=== PATIENT | female | born 1935 | race Caucasian/White ===

== ENCOUNTER → 2016-09-19 | Outpatient (CLI) | payer MEDICARE ==
[~2016-09-19] MED LIST: ALBU17IN2; ALBU17IN2 INH; ALLE180T33 PO; ASPI1TAB PO; ATOR1TAB19 PO; ATOR1TAB21 PO; BYST10TA2 PO; CARD120T4 PO; CLOTR1CR TOP; COLA100C PO; DILT60TA PO; FLEC50TA PO; FLON0.054; FURO40TA2 PO; LEVO500T32 PO; LEVO50TA5 PO; LIPI10TA PO; LISI10TA4 PO; METO25TAB PO; MICR8CAP PO; MUCI600T34 PO; MULTCAP PO; OCEA0.654; PROTPAK PO; RANE1000 PO; RANI15TA PO; TAMBOCOR PO; TESS100C PO; TYLE325T5 PO; TYLE650T25 PO; VITA100037 PO; ZANT1TAB PO; ZAROXOLYN PO; ZEST1TAB7 PO; ZOLO50TA PO; ZYLO300T4 PO
== END ==
LOC: M CARPUL 12:46
PROVIDERS: ATTEND Nurse Practitioner Family
DX: R06.09 Other forms of dyspnea (principal); R06.02 Shortness of breath

== ENCOUNTER 2016-10-20 11:45 | Inpatient (IN) | payer MEDICARE ==
[2016-10-20] VITALS (27 sets, daily range): BP systolic 53–189; BP diastolic 27–100; O2SAT 94–100
[~2016-10-20] VITALS: Ht 160 cm; Wt 121.0 kg
[2016-10-20] MEDS ORDERED: ACETAMINOPHEN TAB 650MG DOSE (2X325MG) PO PRN (12:00)
[2016-10-20] MEDS ORDERED: BISACODYL 10 MG SUPP PR PRN (12:00)
[2016-10-20] MEDS ORDERED: GLUCAGON FOR INJ 1 MG VIAL (J1610) SC PRN (12:30)
[2016-10-20] MEDS ORDERED: GLUCOSE 4 GM CHEW TABLET PO PRN (12:30)
[2016-10-20] MEDS ORDERED: DEXTROSE 50% 50 ML SYRINGE IV PRN (12:30)
[2016-10-20 13:49] LABS: MAGNESIUM LEVEL 2.3 MG/DL (1.8-2.4)
[2016-10-20] MEDS ORDERED: IPRATROPIUM 0.5MG/ALBUTEROL 2.5MG INH SOL UD 3ML (DUONEB)(J7620) NEB SCH (14:00)
--- NOTE | 2016-10-20 14:31 | REP ---
AP LATERAL SEATED CHEST: 10/20/2016 CLINICAL HISTORY: Hypoxia. COMPARISON: 08/19/2016, 01/28/2015. Technologist notes patient unable to follow commands at this time. Lordotic projection limits evaluation as does low level of inflation. This crowds markings in the bases. It exaggerates heart size and venous hypertension is suspected. No gross effusion on the lateral view. No dense consolidation. Bones with degenerative change. IMPRESSION: 1. Hypoinflated chest with bibasilar atelectatic changes and crowded markings. Heart size exaggerated by low level of inflation. There is venous hypertension which also may be exaggerated. No gross effusion. Limited exam. Signed by Evangelista Manuel MD 10/20/2016 04:25 P
[2016-10-20 14:38] LABS: ALBUMIN 2.6 GM/DL (3.2-5.2); ALBUMIN/GLOBULIN RATIO 0.65 (1.00-1.93); ALKALINE PHOSPHATASE 80 U/L (45-117); ALT/SGPT 22 U/L (12-78); ANION GAP 8 MEQ/L (8-16); AST/SGOT 27 U/L (15-37); BILIRUBIN,TOTAL 0.3 MG/DL (0.2-1.0); BLOOD UREA NITROGEN 45 MG/DL (7-18); CALCIUM LEVEL 8.7 MG/DL (8.8-10.2); CARBON DIOXIDE LEVEL 25 MEQ/L (21-32); CHLORIDE LEVEL 106 MEQ/L (98-107); CREATININE FOR GFR 2.04 MG/DL (0.55-1.02); GLOMERULAR FILTRATION RATE 24.8 (>32); GLUCOSE, FASTING 114 MG/DL (83-110); SODIUM LEVEL 139 MEQ/L (136-145); TOTAL PROTEIN 6.6 GM/DL (6.4-8.2)
[2016-10-20 14:40] LABS: MEAN CORPUSCULAR HEMOGLOBIN 32.7 pg (27.0-33.0); MEAN CORPUSCULAR HGB CONC 31.2 g/dl (32.0-36.5); MEAN CORPUSCULAR VOLUME 105.1 fl (80.0-96.0); POTASSIUM SERUM 5.7 MEQ/L (3.5-5.1); RED CELL DISTRIBUTION WIDTH 15.5 % (11.5-14.5); WHITE BLOOD COUNT 14.7 K/mm3 (4.0-10.0)
[2016-10-20] MEDS ORDERED: ISOS60TA2 PO (14:54)
[2016-10-20] MEDS ORDERED: DULO1CAP2 PO (14:54)
[2016-10-20] MEDS ORDERED: KLOR1CAP2 PO (14:54)
[2016-10-20] MEDS ORDERED: ALLE60TA69 PO (14:54)
[2016-10-20] MEDS ORDERED: ALBU17IN INH (14:55)
[2016-10-20] MEDS ORDERED: METO25TAB PO (14:56)
[2016-10-20] MEDS ORDERED: OPTI0.5D5 OU (14:57)
[2016-10-20] MEDS ORDERED: DILT120C PO (15:21)
[2016-10-20] MEDS ORDERED: FUROSEMIDE 40 MG/4 ML VIAL (J1940) IV ONE (15:30)
[2016-10-20] MEDS: HumaLOG INSULIN (NovoLOG) PER UNIT SC SCH ×2 (17:30→21:00)
[2016-10-20] MEDS ORDERED: HALOPERIDOL 5 MG/ML VIAL (J1630) As Ordered ONE (17:48)
[2016-10-20] MEDS ORDERED: NITROGLYCERIN 2% OINT 1 GM *U/D* PKT As Ordered ONE (17:55)
[2016-10-20] MEDS: FUROSEMIDE 40 MG/4 ML VIAL (J1940) IV SCH (18:00)
[2016-10-20] MEDS ORDERED: FUROSEMIDE 40 MG/4 ML VIAL (J1940) IV SCH (18:00)
[2016-10-20] MEDS ORDERED: MEROPENEM INJ 1 GM in D5W MINI-BAG PLUS 100 ML IV SCH (18:00)
[2016-10-20 18:03] LABS: ABG HCO3 23.9 MEQ/L (22.0-26.0); ABG PARTIAL PRESSURE CO2 86.6 mmHg (35.0-45.0); ABG PARTIAL PRESSURE O2 109.8 mmHg (75.0-100.0); ABG TOTAL CO2 26.6 MEQ/L (23.0-31.0); ABG pH (ARTERIAL) 7.059 UNITS (7.350-7.450)
[2016-10-20] MEDS ORDERED: ETOMIDATE INJ 20MG/10ML VIAL As Ordered ONE ×2 (18:07→18:27)
[2016-10-20] MEDS ORDERED: MIDAZOLAM INJ 5 MG/ML VIAL (J2250) As Ordered ONE ×2 (18:23→18:42)
[2016-10-20] MEDS ORDERED: ROCURONIUM BROMIDE 50 MG/5 ML VIAL As Ordered ONE (18:26)
[2016-10-20] MEDS ORDERED: PROPOFOL 1,000 MG/100 ML VIAL As Ordered ONE (18:31)
--- NOTE | 2016-10-20 18:55 | REP ---
PORTABLE CHEST X-RAY: REASON FOR EXAMINATION: Dyspnea. COMPARISON: 10/20/2006, obtained at 2 p.m. AP and lateral views. The technique utilized in obtaining the radiograph has magnified the cardiac silhouette and accentuated the interstitial markings. The lung arias and cardiomediastinal silhouette are stable. No acute patchy parenchymal opacities or pleural effusions have developed. The lung arias are again seen to be hypo-expanded with basilar subsegmental atelectatic change. There is no change in the osseous structure. IMPRESSION: Stable chest as described above. Signed by Jermaine Qiu DO 10/20/2016 07:09 P
[2016-10-20] MEDS ORDERED: VANCOMYCIN HCL 1,000 MG, VIAL MATE ADAPTER 1 EACH in D5W 250 ML IV ONE (19:00)
[2016-10-20] MEDS ORDERED: PROPOFOL 1,000 MG in APPROPRIATE DILUENT 1 EA IV SCH (19:08)
[2016-10-20] MEDS ORDERED: ETOMIDATE INJ 20MG/10ML VIAL IV STA ×2 (19:10)
[2016-10-20] MEDS ORDERED: VERAPAMIL HCL 5 MG/2 ML VIAL IV STA (19:10)
[2016-10-20] MEDS: MIDAZOLAM INJ 2 MG/2 ML VIAL (J2250) IV PRN ×4 (19:15→20:00)
[2016-10-20] MEDS ORDERED: MORPHINE 2 MG/ML 1ML SYRINGE IV PRN (19:15)
[2016-10-20] MEDS ORDERED: ROCURONIUM BROMIDE 50 MG/5 ML VIAL IV ONE (19:15)
[2016-10-20] MEDS ORDERED: MIDAZOLAM INJ 5 MG/ML VIAL (J2250) IM ONE (19:30)
--- NOTE | 2016-10-20 19:37 | IPN ---
DATE: 10/20/2016 Ashley cherise was called. She had change in mental status and had become hypoxic as she was unwilling to keep her oxygen on in her confusion while the [facility] team was managing the patient's care, I called the patient's daughter by phone. Apparently the patient has a do not resusitate order from another hospital. During my initial discussions with the daughter she indicated that she will be willing to have the patient have bi-level positive airway pressure (BiPAP), would be unwilling to have the patient intubated but would want the patient to have cardiopulmonary resuscitation. She was indicating that she would be coming into town this evening. She lives about an hour and 45 minutes away, would start the drive and we would be able to reach her by phone whenever. When the patient's gas came back apparently the patient's daughter was contacted by the remaining [facility] team which included Dr. Levine at that point and consultation with the daughter elected to intubate the patient. Please refer to other providers for description of the patient's care. MABEL
--- NOTE | 2016-10-20 19:37 | REP ---
CHEST, ONE VIEW: REASON FOR EXAM: Status-post right internal jugular central venous catheter placement and endotracheal tube placement. COMPARISON: Today at 6:11 p.m. Since the last examination the right sided internal jugular central venous catheter has been placed, the tip of which is in the superior vena cava. An endotracheal tube is also now present, the tip of which is in satisfactory position at the level of the aortic knob. The lung arias are unchanged. No acute patchy parenchymal opacities or pleural effusions have developed. The cardiomediastinal silhouette is stable. The heart is not grossly enlarged. There is no change in the osseous structures. IMPRESSION: No acute disease. Endotracheal tube and central venous catheter as described above. Signed by Jermaine Qiu DO 10/20/2016 07:49 P
[2016-10-20] MEDS ORDERED: REFRIGERATOR IV KEYS XX PRN (19:45)
[2016-10-20 19:58] LABS: EOS # 0.3 K/mm3 (0.0-0.50); EOS % 2.3 % (0.0-3.0); LARGE UNSTAINED CELL # 0.2 K/mm3 (0.0-0.4); LARGE UNSTAINED CELL % 1.1 % (0.0-4.0); LYMPH # 0.8 K/mm3 (1.5-4.5); LYMPH % 5.4 % (24.0-44.0); MEAN CORPUSCULAR HEMOGLOBIN 33.1 pg (27.0-33.0); MEAN CORPUSCULAR HGB CONC 31.3 g/dl (32.0-36.5); MEAN CORPUSCULAR VOLUME 105.8 fl (80.0-96.0); MONO # 0.6 K/mm3 (0.0-0.8); MONO % 3.9 % (0.0-5.0); NEUTROPHILS # 12.6 K/mm3 (1.8-7.7); NEUTROPHILS % 87.3 % (36.0-66.0); PLATELET COUNT, AUTOMATED 202 k/mm3 (150-450); RED CELL DISTRIBUTION WIDTH 15.4 % (11.5-14.5); WHITE BLOOD COUNT 14.4 K/mm3 (4.0-10.0)
[2016-10-20] MEDS ORDERED: MIDAZOLAM HCL 100 MG in D5W 80 ML IV SCH (20:30)
[2016-10-20] MEDS ORDERED: MIDAZOLAM INJ 5 MG/ML VIAL (J2250) IV ONE ×2 (20:30)
[2016-10-20] MEDS: IPRATROPIUM 0.5MG/ALBUTEROL 2.5MG INH SOL UD 3ML (DUONEB)(J7620) NEB SCH (20:42)
[2016-10-20 20:44] LABS: ALBUMIN 2.3 GM/DL (3.2-5.2); ALBUMIN/GLOBULIN RATIO 0.55 (1.00-1.93); CALCIUM LEVEL 8.3 MG/DL (8.8-10.2); CREATININE FOR GFR 1.99 MG/DL (0.55-1.02); GLOMERULAR FILTRATION RATE 25.5 (>32); TOTAL PROTEIN 6.5 GM/DL (6.4-8.2)
[2016-10-20 20:52] LABS: BILIRUBIN,TOTAL 0.4 MG/DL (0.2-1.0)
[2016-10-20] MEDS ORDERED: METOPROLOL TART 25 MG TABLET PO SCH (21:00)
[2016-10-20] MEDS: SENOKOT S TAB PO SCH (21:00)
[2016-10-20] MEDS ORDERED: CHLORHEXIDINE GLUCONATE 0.12 % 15ML UDC (PERIDEX ORAL RINSE) MT SCH (21:00)
[2016-10-20] MEDS ORDERED: DULoxetine 30 MG CAP (CYMBALTA) PO SCH (21:00)
[2016-10-20] MEDS: FLECAINIDE 50MG TABLET PO SCH (21:00)
--- NOTE | 2016-10-20 21:02 | CCN ---
DATE: 10/20/2016 CRITICAL CARE TIME: 1 hour. This excludes all procedures. I was called urgently to the bedside of a patient who had a rapid assessment called. She was having altered mental status, hypoxia and tachypnea. She was brought to the ICU, was obtunded apparently multiple attempts were made to intubate without success until right before I arrived at the room. The thied an successful intubation had just finished. I confirmed placement with auscultation as the tube was secured and placed the patient on mechanical ventilation. Her story begins with a history of 3 to 4 weeks of progressive dyspnea and increased lower extremity edema bilaterally with a history of hypertensive heart disease and diastolic dysfunction. She was therefore admitted for acute decompensation of heart failure. While on the floor it was noted that she was refusing medications, became combative, had a change in mental status and was unable to keep her oxygen on. She then had cyanosis and hypoxia documented to 60%. Rapid assessment was called and patient transferred to the ICU. On mechanical ventilation, she moves her arms appropriately and respond she responds to stimuli. She has a heart rate of approximately 78 with a sinus arrhythmia, wide QRS complex suggesting an incomplete left bundle branch block. There is no ST-T segment abnormalities. After intubation, she was sedated with propofol. She did have some hypotension and therefore her antihypertensives were stopped. She was on Prinivil, although she had evidence of renal failure on her admission labs. She had hyperkalemia, lactic acidosis on her initial blood work. This was thought to be secondary to the work of breathing. Blood cultures were obtained during the rapid assessment for meeting sepsis criteria. On my arrival because of her hypotension, I did place a central line and she had very poor IV access. PHYSICAL EXAMINATION: Temperature is 96.2, pulse is 76, respiratory rate is 20, blood pressure is 89/56 with an oxygen saturation of 96% on 0.50 FIO2. She is on volume control. Tidal volume 400, respiratory rate of 20, PEEP of 10 and an FIO2 of 0.60. General: The patient is sedated on mechanical ventilation. Moves extremities appropriately. Pupils are approximately 5 mm and reactive to light. Mucous membranes are moist without lesion. Tongue is midline. Mallampati 4. Neck is supple. No tracheal deviation or mass. Large circumference. No thyromegaly. Cardiac: Distant S1-S2 without audible murmur, rub or gallop. 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 Central venous pressure (CVP) is measured at 8. Pulmonary: Breath sounds are clear bilaterally. No rhonchi or wheeze. No dullness to percussion. Abdomen is soft, with hypoactive bowel sounds. No discernible hepatosplenomegaly. There is a subcostal scar that is well-healed. Extremities: There is significant edema and erythema. Apparently this is chronically how her legs look, however, there is an open wound on her toe. Musculoskeletal: Appears appropriate for stated age. No evidence of joint effusion. Neurologic: Moving extremities appropriately. No evidence of seizure activity. Laboratory evaluation shows a white blood cell count of 14.7, hemoglobin of 7.8. Platelet count of 236, sodium is 139, potassium 5.7, chloride 106, bicarb is 25, BUN of 45, creatinine of 2.04, fasting glucose of 114. Lactic acid of 3.7, calcium 8.7, troponin less than 0.02, albumin of 2.6, TSH of 2.8. Blood cultures are pending. Chest x-ray shows hypoventilation, some air in the stomach and endotracheal tube is slightly deep approximately 1 cm above the jesus. Right IJ has the tip of the catheter in the SVC. There is no significant parenchymal lung disease. Arterial blood gas prior to intubation shows a pH of 7.06, pCO2 of 86 and pAO2 of 110. IMPRESSION: 1. Acute hypercarbic hypoxic respiratory failure. According to history, the patient came in with decompensated heart failure. Will continue to monitor for other signs, symptoms of alternative diagnoses. There is no evidence of pneumonia currently. 2. Acute renal failure. Will continue to monitor urine output. Currently the patient has large amounts of clear very light yellow urine after Lasix administration was given prior to the respiratory distress. 3. Lactic acidosis, likely secondary to the patient's work of breathing. However, will recheck within 6 hours to ensure no evidence of persistent lactic acidemia. 4. Hyperkalemia, likely from acute renal failure. Will also recheck potassium on labs. Likely also secondary to acute metabolic acidosis. 5. Leukocytosis. Blood cultures are pending. The patient received vancomycin, meropenem. I suppose this was written due to the possibility of cellulitis. We will continue antibiotics due to the leukocytosis, lactic acidosis until blood cultures return. 6. Anemia. No indication for transfusion at this point in time. 7. Diabetes. Will check fingersticks blood glucose every 6 hours. 8. Hypothyroidism. Will continue levothyroxine and TSH is 2.8 on admission. 9. History of cardiac disease. Currently the patient has hypotension, likely from sedation. Will continue to monitor for need for reintroduction of antiarrhythmics and antihypertensives. Prinivil should be on hold now due to her acute renal failure and hyperkalemia. 10. Hypoalbuminemia, likely from volume overload and protein deficiency Prognosis remains guarded. Critical care required due to the severity of her respiratory failure. Will continue mechanical ventilation with daily sedation and assess for readiness for extubation. Critical care time was mentioned above. This excludes all procedures. MTDD
[2016-10-20] MEDS ORDERED: VANCOMYCIN HCL 1,250 MG in D5W 250 ML IV ONE (21:15)
--- NOTE | 2016-10-20 21:16 | RO ---
DATE OF PROCEDURE: 10/20/2016 PREPROCEDURE DIAGNOSIS: Hypotension. POSTPROCEDURE DIAGNOSIS: Hypotension. PROCEDURE: Right internal jugular venous catheter, triple lumen catheter. SURGEON: Micah Parker DO PHARMACY SERVICE ASSOCIATE: None. ANESTHESIA: The patient was sedated on mechanical ventilation with propofol. DESCRIPTION OF PROCEDURE: The patient was prepped and draped in a sterile manner with four full barrier precautions and chlorhexidine. The right IJ was then identified under ultrasound and the Mayi syringe was passed into the right IJ in the first pass with return of venous blood flow. The wire was fed through the needle and needle was removed. A aubree in the skin was made and the triple-lumen catheter was fed over the wire via modified Seldinger technique. The wire was removed and all three ports returned venous blood flow. All three ports flushed easily. The line was sutured in at 15 cm at the right IJ. There were no observed complications. A sterile impregnated dressing was then placed over the site. There were no observed complications.
--- NOTE | 2016-10-20 21:18 | PHACANCOPD ---
PHARMACY VANCOMYCIN DOSING Pt Demographics Demographics Patient Age:81 , Weight:126.360 , Gender: female Adjusted Body Weight Date: 10/20/16, Adjusted Body Weight: [82] Kg Events Past 24 Hours Events Past 24 Hours: NO: Change in CrCl, Dialysis, Diuretic Therapy, Elevation in WBC, Fever, Other, Pending Diagnostics, Pending Procedures Vancomycin Vancomycin Target Ranges: 10-20 mcg/ml Vancomycin Load Y/N: Yes Load Dose Date Time Vancomycin Load Dose: 1250MG Date: 10-20 Time: 2100 Vancomycin Dose Date: 10/20/16. Current Vancomycin Dose: Intermittent Dosing?: No Labs Labs Item Value Date Time White Blood Count 14.4 K/mm3 H 10/20/16 1940 Creatinine 1.99 MG/DL H 10/20/16 1940 Vital Signs Label Value Date Time Patient Temperature 96.2 degrees F 10/20/16 1600 Temperature Source Tympanic 10/20/16 1600 Micro Microbiology 10/20/16 Blood Culture, Received Pending 10/20/16 Blood Culture, Received Pending Creatinine Clearance Date:10/20/16. Creatinine Clearance: [18]. Pending Labs TROUGH 10-22 Assessment and Plan Maintaining Current Dose?: Yes Reason for dose change: No Dose Change Pharmacist Note Pharmacist Note Date: 10/20/16. Pharmacist note:Dosed at 1000mg q24h with a trough ordered for . Will continue to monitor and make adjustments as needed. ALEJANDRO REHMAN PHARMACY Oct 20, 2016 21:18
[2016-10-20] MEDS: FLUTICASONE PROP 0.05% NASAL SPRAY 16 GM (FLONASE) SCH (21:28)
[2016-10-20] MEDS: NYSTATIN 100,000 UNITS/GM TOPICAL PWD 15 GM TOP SCH (21:29)
[2016-10-20 22:48] LABS: ABG HCO3 21.9 MEQ/L (22.0-26.0); ABG PARTIAL PRESSURE CO2 36.1 mmHg (35.0-45.0); ABG PARTIAL PRESSURE O2 159.6 mmHg (75.0-100.0)
[2016-10-20 22:49] LABS: ABG BASE EXCESS -2.5 (-2.0-2.0); ABG STANDARD HCO3 22.4 MEQ/L (22.0-26.0)
[2016-10-21] VITALS (15 sets, daily range): BP systolic 89–148; BP diastolic 39–65; O2SAT 100
[2016-10-21] MEDS: FUROSEMIDE 40 MG/4 ML VIAL (J1940) IV SCH ×3 (00:12→20:45)
[2016-10-21] MEDS ORDERED: HALOPERIDOL 5 MG/ML VIAL (J1630) IV ONE (02:15)
[2016-10-21] MEDS ORDERED: NITROGLYCERIN 2% OINT 1 GM *U/D* PKT TOP ONE (02:15)
[2016-10-21 05:53] LABS: ABG HCO3 24.7 MEQ/L (22.0-26.0); ABG PARTIAL PRESSURE CO2 28.5 mmHg (35.0-45.0); ABG PARTIAL PRESSURE O2 106.7 mmHg (75.0-100.0); ABG STANDARD HCO3 27.2 MEQ/L (22.0-26.0); ABG TOTAL CO2 25.6 MEQ/L (23.0-31.0); ABG pH (ARTERIAL) 7.556 UNITS (7.350-7.450)
[2016-10-21] MEDS: LEVOTHYROXINE 0.05 MG TAB (50 MCG) PO SCH (06:07)
[2016-10-21] MEDS: MEROPENEM INJ 1 GM in D5W MINI-BAG PLUS 100 ML IV SCH ×2 (06:08→19:05)
[2016-10-21 06:34] LABS: ALBUMIN 2.2 GM/DL (3.2-5.2); ALBUMIN/GLOBULIN RATIO 0.55 (1.00-1.93); BILIRUBIN,TOTAL 0.5 MG/DL (0.2-1.0); CALCIUM LEVEL 8.2 MG/DL (8.8-10.2); CREATININE FOR GFR 1.89 MG/DL (0.55-1.02); POTASSIUM SERUM 4.3 MEQ/L (3.5-5.1); TOTAL PROTEIN 6.2 GM/DL (6.4-8.2)
[2016-10-21 06:38] LABS: BASO % 0.2 % (0.0-1.0); EOS # 0.3 K/mm3 (0.0-0.50); EOS % 2.5 % (0.0-3.0); LARGE UNSTAINED CELL # 0.2 K/mm3 (0.0-0.4); LARGE UNSTAINED CELL % 1.5 % (0.0-4.0); LYMPH # 1.8 K/mm3 (1.5-4.5); LYMPH % 12.7 % (24.0-44.0); MEAN CORPUSCULAR HEMOGLOBIN 33.3 pg (27.0-33.0); MEAN CORPUSCULAR HGB CONC 32.7 g/dl (32.0-36.5); MEAN CORPUSCULAR VOLUME 101.8 fl (80.0-96.0); MONO % 8.2 % (0.0-5.0); NEUTROPHILS # 9.2 K/mm3 (1.8-7.7); NEUTROPHILS % 74.9 % (36.0-66.0); PLATELET COUNT, AUTOMATED 216 k/mm3 (150-450); RED CELL DISTRIBUTION WIDTH 15.8 % (11.5-14.5); WHITE BLOOD COUNT 12.2 K/mm3 (4.0-10.0)
--- NOTE | 2016-10-21 06:53 | IPN ---
DATE: 10/20/2016 RAPID RESPONSE NOTE Rapid response called at 5:40 p.m. and ended at 6:40 p.m. Rapid response called for tachypneic and altered mental status. The patient was combative. The patient was as per nursing staff admitted today for congestive heart failure (CHF) exacerbation with underlying history of obstructive sleep apnea, hypertension, coronary artery disease, and not on oxygen at home as per nursing staff. At baseline, alert and oriented times three. She came in with acute on chronic renal failure with hyperkalemia and leukocytosis. Rapid response code purple was called because patient was combative, removing oxygen devices on her and was tachypneic into the 30s. Previous vitals before rapid response - patient's temperature 96.2, heart rate 76, respirations 24, blood pressure 189/76, and pulse oximetry 96% on 2 liters nasal cannula. During the process, pulse oximetry was taken and the patient's saturation was down to the 70s and 60s. Subsequently, the patient was placed on non-rebreather. In the process, the patient's color also turned dusky and was bagged and then placed on non-rebreather with improvement of mental status and subsequently a repeat blood pressure was taken. Finger stick 140, repeat blood pressure 180/100, with pulse 104. ABG was obtained. The patient was auscultated bilateral lung sounds are crackly and wheezy. The patient was not following commands, agitated, waving her arms, removing devices. Haldol 2 mg IV once was given. The patient was placed on monitor with improvement in oxygen saturation up to a 100. Nitropaste was also placed on the patient's chest and the patient was subsequently moved to the intensive care unit (ICU). In the ICU, the patient's blood gas returned with an ABG of 7.059, pCO2 of 86.6 and pO2 of 109.8 on 100% nonrebreather. The patient's primary doctor, Dr. Levine has been present and called the patient's daughter and informed her of her current condition. Unable to verify patient's code status. Subsequently, decision was made for the patient to be intubated. Pulmonary critical care attending, Dr. Parker, was alerted. In between, the patient was given 40 mg of IV Lasix twice. Buck catheter with good urine output, Buck catheter was placed. Subsequently, the patient was intubated. Please refer to intubation note for further information. After intubation, the patient was placed on ventilators. During the process, labs and blood cultures were ordered. Meropenem and one dose of vancomycin was also ordered. Medications for intubation including etomidate 20 mg IV twice, Versed 5 mg IV once, as well as rocuronium 20 mg IV once. X-ray was ordered to verify tube placement. The patient had bilateral breath sounds with positive CO2 monitor color change and satting 100% with blood pressure of 190/90. Subsequently, the patient was handed off to Dr. Levine and Dr. Parker for further intensive care monitoring and care. Propofol drip was started for sedation. Possible etiology for patient's condition includes encephalopathy secondary to underlying infection versus hypoxia and hypoxic possibly secondary to acute CHF exacerbation versus underlying infection versus pulmonary embolism (PE). Antibiotics have been ordered. Lab tests were sent. X-ray was ordered as well. The patient currently has stable vital signs, 100% oxygen saturations. Further care as per primary team. ADDENDUM: Critical time exclusive of procedure 40 minutes.
[2016-10-21 07:19] LABS: ABG BASE EXCESS 5.4 (-2.0-2.0); ABG HCO3 29.1 MEQ/L (22.0-26.0); ABG PARTIAL PRESSURE CO2 39.1 mmHg (35.0-45.0); ABG PARTIAL PRESSURE O2 118.5 mmHg (75.0-100.0); ABG STANDARD HCO3 29.4 MEQ/L (22.0-26.0); ABG TOTAL CO2 30.3 MEQ/L (23.0-31.0)
[2016-10-21] MEDS: HumaLOG INSULIN (NovoLOG) PER UNIT SC SCH ×4 (07:30→20:06)
[2016-10-21] MEDS: IPRATROPIUM 0.5MG/ALBUTEROL 2.5MG INH SOL UD 3ML (DUONEB)(J7620) NEB SCH ×4 (07:57→20:50)
[2016-10-21] MEDS: FLECAINIDE 50MG TABLET PO SCH ×2 (09:00→20:33)
[2016-10-21] MEDS ORDERED: ATORVASTATIN 10 MG TAB PO SCH (09:00)
[2016-10-21] MEDS ORDERED: ENOXAPARIN 40 MG/0.4 ML SYRINGE (J1650) SC SCH (09:00)
[2016-10-21] MEDS ORDERED: LISINOPRIL 20 MG TAB PO SCH (09:00)
[2016-10-21] MEDS ORDERED: ALLOPURINOL 300 MG TAB PO SCH (09:00)
[2016-10-21] MEDS: ASPIRIN 81 MG ENTERIC TAB PO SCH (09:00)
[2016-10-21] MEDS: SENOKOT S TAB PO SCH ×2 (09:00→20:33)
--- NOTE | 2016-10-21 09:54 | CCN ---
DATE: 10/21/2016 Critical care time was 1 hour at the patient's bedside. I have placed her on a spontaneous breathing trial. She did have agitation, occasional rapid shallow breathing. The healthcare proxy was at the bedside, Jahaira. She states she spoke with her sister Beata who is also listed as a healthcare proxy and stated they both agree that their stepmother would not want life support. Her was listed as the first healthcare proxy, but they state he is incapacitated and unable to make decisions, they state he was just hospitalized last week. They feel that they are accurately reflecting the patient's wishes that have been expressed in the past. We therefore extubated the patient this morning, placed her on oxygen and will continue to treat without providing CPR or aggressive measures. It is in agreement the patient would not tolerate CPAP or BiPAP and would not want this therapy. Critical care time was required at the bedside during extubation. PHYSICAL EXAMINATION: Temperature is 98.1, pulse is 101, respiratory rate is 16, blood pressure is 111/52, oxygen saturation is 98% on 48% FiO2. GENERAL: Awake, moving all extremities, able to lift her body off the bed. Occasionally opens eyes but has no meaningful communication. HEENT: Pupils are approximately 5-6 mm and reactive to light. Mucous membranes are moist without lesions. Tongue is midline. NECK: Supple, large in circumference without discernible elevated JVP. Thyroid is without enlargement or nodularity. LYMPHATICS: No cervical, supraclavicular, or axillary adenopathy. CARDIAC: Distant S1, S2, without audible murmur, rub or gallop. PMI is difficult to palpate due to body habitus. PULMONARY: Slight expiratory wheeze. No rhonchi or rales. No dullness to percussion. ABDOMEN: Obese, soft, nontender, nondistended. No hepatosplenomegaly. No masses or hernia. There is a well-healed subcostal scar from prior cholecystectomy. EXTREMITIES: There is significant erythema and now pustule formation on the right leg with green pus. There is significant lower extremity edema. MUSCULOSKELETAL: Moving arms and legs appropriately. NEUROLOGIC: No evidence of tremor, seizure activity. No evidence of unilateral weakness. Not yet communicating effectively however, the patient was recently on Versed. LABORATORY EVALUATION: Shows a sodium 142, potassium 4.3, chloride 105, bicarbonate of 28, BUN of 44, creatinine 1.89, glucose of 111. Lactic acid is down to 1.0, calcium 8.2, AST of 29, ALT of 23, troponin of 0.04 and albumin of 2.2, white blood cell count is down to 12.2, hemoglobin is down to 9.8 from 10, hematocrit of 30, platelet count of 216. Arterial blood gas shows hyperventilation with a pH of 7.49, pCO2 of 39, PaO2 of 118. Chest x-ray shows hypoventilation without any significant infiltrate or mass. Endotracheal tube and central line are in place. IMPRESSION: 1. Respiratory failure, trial of extubation. I am concerned due to her hypoventilation that she may fail. The patient's family have discussed this and her healthcare proxies have stated that she would not want any further aggressive measures that if she were to decline they would not want reintubation or cardiopulmonary resuscitation. I will therefore order a DO NOT RESUSCITATE. They did state if she does not do well that they would convert her to comfort measures and let her pass naturally. 2. Congestive heart failure. Will continue on Lasix. 3. Tachycardia. Will reintroduce flecainide as this was held last night. 4. Renal failure. Creatinine has decreased. Will continue to monitor urine output. 5. Hyperkalemia. Also potassium decreased to 4.3. No need for intervention at this point in time. 6. Leukocytosis, improved. On antibiotics for possible cellulitis. Awaiting blood culture return. 7. Anemia. No indication for transfusion at this point in time. 8. Neurologic. Has agitation which is likely secondary to age, hospitalization and ICU delirium. Will monitor for neurologic recovery. 9. Diabetes. Will place back on before food coverage when the patient is able to tolerate a diet. 10. Hypothyroidism. Levothyroxine is continued. 11. Lactic acidosis, resolved. Critical care time as mentioned above. This excludes all procedures.
--- NOTE | 2016-10-21 10:24 | IPNPDOC ---
Subjective Date Seen The patient was seen on 10/21/16. Subjective Chief Complaint/HPI The patient is a 81-year-old female admitted with a reason for visit of Congestive Heart Failure. Events since last encounter Extubated this am - maintaining her sats on 28% O2 She is still drowsy - Acts a little agitated at times Constitutional: Denies: Chills, Fever Pulmonary: Denies: Cough Cardiovascular: Denies: Chest Pain Gastrointestinal: Denies: Abdominal Pain, Nausea, Vomiting Objective Physical Examination General Exam: Positive: Other (Grrogy, looks a little agitated/uncomfortable at times - janine are in mits to prevent her from pulling off her oxygen mask) Chest Exam: Positive: Diminished Heart Exam: Positive: Rate Normal, Negative: Murmurs Abdomen Exam: Positive: BS Hypoactive, Soft, Negative: Tenderness Extremity Exam: Positive: Edema (1+ edema) Skin Exam: Positive: Other skin issue (BL LE with raised erythematous area on both shins with scabbed areas and a pulstule on right andrade) Assessment /Plan Problems (1) Cellulitis Status: Acute Problem Text: BL LE cellulitis superimposed on chronic venous stasis dermatitis. Has a pustule on her right andrade B/C pending (2) Acute diastolic (congestive) heart failure Status: Acute Response to Treatment: Improving Problem Text: Resp status and fluid status improved with IV Lasix. Renal function slightly improved at well. I will cut back IV Lasix slightly to 40 mg IV q 12 hours. Continue oxygen KATHLEEN on hold due to hypotension and ARF (3) Community acquired bacterial pneumonia Status: Acute Problem Text: IV Zosyn and Vanco ordered WBC down BC pending (4) Paroxysmal atrial fibrillation Status: Acute Problem Text: rate running around 100 Verapamil given Iv x 1 yesterday, but BP dropped so will hold off this for now (5) MARIVEL (obstructive sleep apnea) Status: Chronic Response to Treatment: Stable Problem Text: untreated MARIVEL - will not tolerate CPAP (6) Diabetes Status: Chronic Response to Treatment: Stable Problem Text: Continue SSI (7) HTN (hypertension) Status: Chronic Problem Text: BP meds on hold due to low BP Plan/VTE VTE Prophylaxis Ordered?: Yes (Lovenox) Plan/Urinary Catheter Reason for insertion/continuin: Critical Pt monitoring VS, I&O, 24H, Fishbone Vital Signs/I&O Vital Signs Date Time Temp Pulse Resp B/P Pulse Ox O2 Delivery O2 Flow Rate FiO2 10/21/16 07:55 101 16 98 40 10/21/16 06:07 111/52 Ventilator 10/21/16 04:07 98.1 10/20/16 16:00 2.0 I&O- Last 24 Hours up to 6 AM 10/21/16 05:59 Intake Total 370 ml Output Total 1775 ml Balance -1405 ml Laboratory Data 24H LABS Laboratory Tests 2 10/20/16 13:06: Blood Urea Nitrogen 45H, Creatinine 2.04H, Sodium Level 139, Potassium Level 5.7H, Chloride Level 106, Carbon Dioxide Level 25, Calcium Level 8.7L, Aspartate Amino Transf (AST/SGOT) 27, Alanine Aminotransferase (ALT/SGPT) 22, Total Creatine Kinase 189, Alkaline Phosphatase 80, Total Bilirubin 0.3, Total Protein 6.6, Albumin 2.6L, Albumin/Globulin Ratio 0.65L, Anion Gap 8, Creatine Kinase MB 3.7H, Creatine Kinase MB Relative Index 1.95, Glomerular Filtration Rate 24.8L, Magnesium Level 2.3, Thyroid Stimulating Hormone (TSH) 2.880, Troponin I < 0.02 10/20/16 17:55: Arterial Blood pH 7.059*L, Arterial Blood Partial Pressure CO2 86.6*H, Arterial Blood Partial Pressure O2 109.8H, Arterial Blood Total CO2 26.6, Arterial Blood HCO3 23.9, Arterial Blood Base Excess -8.0L, Arterial Blood Oxygen Saturation 96.4, Blood Gas Bicarbonate Standard 18.0L 10/20/16 18:05: Lactic Acid (Sepsis) 3.7*H 10/20/16 19:40: Blood Urea Nitrogen 43H, Creatinine 1.99H, Sodium Level 140, Potassium Level 5.0 , Chloride Level 107, Carbon Dioxide Level 29, Calcium Level 8.3L, Aspartate Amino Transf (AST/SGOT) 32, Alanine Aminotransferase (ALT/SGPT) 23, Total Creatine Kinase 239H, Alkaline Phosphatase 76, Total Bilirubin 0.4, Total Protein 6.5, Albumin 2.3L, Albumin/Globulin Ratio 0.55L, Anion Gap 4L, Creatine Kinase MB 4.3H, Creatine Kinase MB Relative Index 1.79, Glomerular Filtration Rate 25.5L, Troponin I 0.02, White Blood Count 14.4H, Red Blood Count 3.03L, Hemoglobin 10.0L, Hematocrit 32.1L, Mean Corpuscular Volume 105.8H, Mean Corpuscular Hemoglobin 33.1H, Mean Corpuscular Hemoglobin Concent 31.3L, Red Cell Distribution Width 15.4H, Platelet Count 202, Neutrophils (%) (Auto) 87.3H , Lymphocytes (%) (Auto) 5.4L, Monocytes (%) (Auto) 3.9, Eosinophils (%) (Auto) 2.3, Basophils (%) (Auto) 0.0, Neutrophils # (Auto) 12.6H, Lymphocytes # (Auto) 0.8L, Monocytes # (Auto) 0.6, Eosinophils # (Auto) 0.3, Basophils # (Auto) 0.0, Large Unclassified Cells # 0.2, Large Unclassified Cells % 1.1, Prothromb Time International Ratio 1.00, Prothrombin Time 13.3 10/20/16 20:02: Arterial Blood pH 7.400, Arterial Blood Partial Pressure CO2 36.1, Arterial Blood Partial Pressure O2 159.6H, Arterial Blood Total CO2 23.0, Arterial Blood HCO3 21.9L, Arterial Blood Base Excess -2.5L, Arterial Blood Oxygen Saturation 99.3H, Arterial Blood Gas Puncture Site , Blood Gas Bicarbonate Standard 22.4 10/20/16 23:26: Bedside Glucose (Misc Panel) 135H 10/21/16 02:02: Lactic Acid (Sepsis) 1.0 10/21/16 03:44: Creatine Kinase MB 2.4, Creatine Kinase MB Relative Index 1.19, Total Creatine Kinase 201H, Troponin I 0.04# 10/21/16 05:45: Arterial Blood pH 7.556H, Arterial Blood Partial Pressure CO2 28.5L, Arterial Blood Partial Pressure O2 106.7H, Arterial Blood Total CO2 25.6, Arterial Blood HCO3 24.7, Arterial Blood Base Excess 3.0H, Arterial Blood Oxygen Saturation 98.7, Arterial Blood Gas Puncture Site LT RADIAL, Blood Gas Bicarbonate Standard 27.2H 10/21/16 05:50: Bedside Glucose (Misc Panel) 118H 10/21/16 06:00: Blood Urea Nitrogen 44H, Creatinine 1.89H, Sodium Level 142, Potassium Level 4.3 , Chloride Level 105, Carbon Dioxide Level 28, Calcium Level 8.2L, Aspartate Amino Transf (AST/SGOT) 29, Alanine Aminotransferase (ALT/SGPT) 23, Alkaline Phosphatase 67, Total Bilirubin 0.5, Total Protein 6.2L, Albumin 2.2L, Albumin/ Globulin Ratio 0.55L, Anion Gap 9, White Blood Count 12.2H, Red Blood Count 2.95L, Hemoglobin 9.8L, Hematocrit 30.0L, Mean Corpuscular Volume 101.8H, Mean Corpuscular Hemoglobin 33.3H, Mean Corpuscular Hemoglobin Concent 32.7, Red Cell Distribution Width 15.8H, Platelet Count 216, Neutrophils (%) (Auto) 74.9H , Lymphocytes (%) (Auto) 12.7L, Monocytes (%) (Auto) 8.2H, Eosinophils (%) (Auto ) 2.5, Basophils (%) (Auto) 0.2, Neutrophils # (Auto) 9.2H, Lymphocytes # (Auto ) 1.8, Monocytes # (Auto) 1.0H, Eosinophils # (Auto) 0.3, Basophils # (Auto) 0.0 , Glomerular Filtration Rate 27.0L, Lactic Acid Level 1.0, Large Unclassified Cells # 0.2, Large Unclassified Cells % 1.5 10/21/16 07:10: Arterial Blood pH 7.490H, Arterial Blood Partial Pressure CO2 39.1, Arterial Blood Partial Pressure O2 118.5H, Arterial Blood Total CO2 30.3, Arterial Blood HCO3 29.1H, Arterial Blood Base Excess 5.4H, Arterial Blood Oxygen Saturation 98.9, Blood Gas Bicarbonate Standard 29.4H CBC/BMP Laboratory Tests 10/20/16 13:06 Calcium Level 8.7 L, Aspartate Amino Transf (AST/SGOT) 27, Alanine Aminotransferase (ALT/SGPT) 22, Total Creatine Kinase 189, Alkaline Phosphatase 80, Total Bilirubin 0.3, Total Protein 6.6, Albumin 2.6 L, Red Blood Count 3.28 L, Mean Corpuscular Volume 105.1 H, Mean Corpuscular Hemoglobin 32.7, Mean Corpuscular Hemoglobin Concent 31.2 L, Red Cell Distribution Width 15.5 H 10/20/16 19:40 Calcium Level 8.3 L, Aspartate Amino Transf (AST/SGOT) 32, Alanine Aminotransferase (ALT/SGPT) 23, Total Creatine Kinase 239 H, Alkaline Phosphatase 76, Total Bilirubin 0.4, Total Protein 6.5, Albumin 2.3 L, Red Blood Count 3.03 L, Mean Corpuscular Volume 105.8 H, Mean Corpuscular Hemoglobin 33.1 H, Mean Corpuscular Hemoglobin Concent 31.3 L, Red Cell Distribution Width 15.4 H, Neutrophils (%) (Auto) 87.3 H, Lymphocytes (%) (Auto ) 5.4 L, Monocytes (%) (Auto) 3.9, Eosinophils (%) (Auto) 2.3, Basophils (%) ( Auto) 0.0, Neutrophils # (Auto) 12.6 H, Lymphocytes # (Auto) 0.8 L, Monocytes # (Auto) 0.6, Eosinophils # (Auto) 0.3, Basophils # (Auto) 0.0 10/21/16 06:00 Calcium Level 8.2 L, Aspartate Amino Transf (AST/SGOT) 29, Alanine Aminotransferase (ALT/SGPT) 23, Alkaline Phosphatase 67, Total Bilirubin 0.5, Total Protein 6.2 L, Albumin 2.2 L, Red Blood Count 2.95 L, Mean Corpuscular Volume 101.8 H, Mean Corpuscular Hemoglobin 33.3 H, Mean Corpuscular Hemoglobin Concent 32.7, Red Cell Distribution Width 15.8 H, Neutrophils (%) (Auto) 74.9 H , Lymphocytes (%) (Auto) 12.7 L, Monocytes (%) (Auto) 8.2 H, Eosinophils (%) ( Auto) 2.5, Basophils (%) (Auto) 0.2, Neutrophils # (Auto) 9.2 H, Lymphocytes # ( Auto) 1.8, Monocytes # (Auto) 1.0 H, Eosinophils # (Auto) 0.3, Basophils # (Auto ) 0.0 Microbiology Microbiology 10/20/16 Blood Culture, Received Pending 10/20/16 Blood Culture, Received Pending ELYSIA BIRCH PA-C Oct 21, 2016 10:24
--- NOTE | 2016-10-21 10:25 | REP ---
PORTABLE CHEST X-RAY: Single view. HISTORY: Respiratory failure. Comparison chest x-ray October 20, 2016. FINDINGS: EKG monitoring electrodes overlie the chest. An endotracheal tube is seen terminating at the level of the proximal clavicles. A nasogastric tube enters the left upper quadrant of the abdomen. The lungs are exposed at a relatively low level of inspiration as before. No definite infiltrate is seen. There are clips in the right upper quadrant of the abdomen. IMPRESSION: Relatively low level of inspiration. Endotracheal and nasogastric tube seen in place. Signed by Richie Gibson MD 10/21/2016 04:42 P
[2016-10-21] MEDS: ENOXAPARIN 30 MG/0.3 ML SYR (J1650) SC SCH (11:25)
[2016-10-21] MEDS: PANTOPRAZOLE 40MG INJ (PROTONIX) (C9113) IV SCH (11:25)
[2016-10-21] MEDS: FLUTICASONE PROP 0.05% NASAL SPRAY 16 GM (FLONASE) SCH ×2 (11:26→20:45)
[2016-10-21] MEDS: NYSTATIN 100,000 UNITS/GM TOPICAL PWD 15 GM TOP SCH ×2 (11:26→20:44)
--- NOTE | 2016-10-21 13:01 | ECGEPIP ---
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
[2016-10-21] MEDS ORDERED: SODIUM CHLORIDE 0.9% INJ 10 ML SYR IV PRN (13:45)
--- NOTE | 2016-10-21 13:47 | RO ---
DATE OF PROCEDURE: 10/20/2016 PREPROCEDURE DIAGNOSIS: Acute hypoxic, hypercarbic respiratory failure with agitation and altered mental status. POSTPROCEDURE DIAGNOSIS: Acute hypoxic, hypercarbic respiratory failure with agitation and altered mental status. PROCEDURE PERFORMED: PHYSICIAN PERFORMING PROCEDURE: Dr. Saba Ray EQUIPMENT OPERAT0R: Dr. Meena Azar BACKUP SUPPORT: Dr. Levine and Dr. Parker INDICATION FOR PROCEDURE: Acute hypoxic, hypercarbic respiratory failure. SEDATION: Etomidate 20 mg intravenously twice was given, Versed 5 mg intravenously once was given, Rocuronium 20 mg intravenously once was given. DESCRIPTION OF PROCEDURE: The patient was placed in supine position and bagged with bag mask. Nasal trumpet was placed for improved respiration. Vital signs: Blood pressure 180/90, pulse oximetry 99%, subsequently etomidate 20 [address] once [address] given[address] Dr[address] Azar attempted to intubate first with a size #8 ET tube. Attempt was unsuccessful. Subsequently, the patient was bagged and an additional 5 mg of Versed was given and a second attempt attempted by Dr. Ray with difficulty given patient was quite agitated. Subsequently, repeat sedation of etomidate, the patient was bagged and etomidate 20 mg was given, as well as Rocuronium. LMA was prepared as a backup. The patient's cords were visualized and ET was passed. Lip line was 23. Bilateral breath sounds were heard. No gastric sounds were heard. CO2 monitor showed color change, verified by Dr. Parker. THe patient was subsequently placed on Propofol drip. X-ray was ordered for confirmation of the tube. The patient tolerated the procedure with no significant complications. Intubation was difficult. Final ET tube size was size #7.5. Intubation was difficult secondary to her anatomy and morbid obesity, short neck, as well as unable to give succinylcholine because of hyperkalemia and enlarged tongue. Fortunately, the patient tolerated the procedure with no complications.
[2016-10-21] MEDS: SODIUM CHLORIDE 0.9% INJ 10 ML SYR IV SCH ×2 (14:56→20:45)
[2016-10-21] MEDS: VANCOMYCIN HCL 1,000 MG, VIAL MATE ADAPTER 1 EACH in D5W 250 ML IV SCH (20:45)
[2016-10-22 00:14] VITALS: BP 146/67
[2016-10-22 04:03] VITALS: BP 168/52
[2016-10-22] MEDS: LEVOTHYROXINE 0.05 MG TAB (50 MCG) PO SCH (05:22)
[2016-10-22] MEDS: SODIUM CHLORIDE 0.9% INJ 10 ML SYR IV SCH ×3 (05:22→20:37)
[2016-10-22] MEDS: MEROPENEM INJ 1 GM in D5W MINI-BAG PLUS 100 ML IV SCH ×2 (05:23→18:07)
[2016-10-22 06:02] LABS: BASO % 0.2 % (0.0-1.0); EOS # 0.7 K/mm3 (0.0-0.50); EOS % 5.8 % (0.0-3.0); LARGE UNSTAINED CELL # 0.4 K/mm3 (0.0-0.4); LARGE UNSTAINED CELL % 3.5 % (0.0-4.0); LYMPH # 1.6 K/mm3 (1.5-4.5); LYMPH % 14.1 % (24.0-44.0); MEAN CORPUSCULAR HEMOGLOBIN 33.4 pg (27.0-33.0); MEAN CORPUSCULAR HGB CONC 31.7 g/dl (32.0-36.5); MEAN CORPUSCULAR VOLUME 105.1 fl (80.0-96.0); MONO # 0.8 K/mm3 (0.0-0.8); NEUTROPHILS % 69.3 % (36.0-66.0); PLATELET COUNT, AUTOMATED 221 k/mm3 (150-450); RED CELL DISTRIBUTION WIDTH 15.3 % (11.5-14.5); WHITE BLOOD COUNT 11.6 K/mm3 (4.0-10.0)
[2016-10-22 06:17] LABS: ALBUMIN 2.2 GM/DL (3.2-5.2); ALBUMIN/GLOBULIN RATIO 0.56 (1.00-1.93); BILIRUBIN,TOTAL 0.4 MG/DL (0.2-1.0); CALCIUM LEVEL 8.1 MG/DL (8.8-10.2); CREATININE FOR GFR 1.53 MG/DL (0.55-1.02); GLOMERULAR FILTRATION RATE 34.5 (>32); TOTAL PROTEIN 6.1 GM/DL (6.4-8.2)
[2016-10-22 07:39] VITALS: BP 161/69
[2016-10-22] MEDS: IPRATROPIUM 0.5MG/ALBUTEROL 2.5MG INH SOL UD 3ML (DUONEB)(J7620) NEB SCH ×4 (08:00→20:33)
[2016-10-22] MEDS: FUROSEMIDE 40 MG/4 ML VIAL (J1940) IV SCH ×2 (09:07→20:37)
[2016-10-22] MEDS: ENOXAPARIN 30 MG/0.3 ML SYR (J1650) SC SCH (09:08)
[2016-10-22] MEDS: PANTOPRAZOLE 40MG INJ (PROTONIX) (C9113) IV SCH (09:08)
[2016-10-22] MEDS: SENOKOT S TAB PO SCH ×2 (09:09→20:37)
[2016-10-22] MEDS: FLUTICASONE PROP 0.05% NASAL SPRAY 16 GM (FLONASE) SCH ×2 (09:09→20:37)
[2016-10-22] MEDS: FLECAINIDE 50MG TABLET PO SCH ×2 (09:09→20:37)
[2016-10-22] MEDS: HumaLOG INSULIN (NovoLOG) PER UNIT SC SCH ×4 (09:09→20:11)
[2016-10-22] MEDS: ASPIRIN 81 MG ENTERIC TAB PO SCH (09:09)
[2016-10-22] MEDS: NYSTATIN 100,000 UNITS/GM TOPICAL PWD 15 GM TOP SCH ×2 (09:10→20:38)
[2016-10-22 11:57] VITALS: BP 156/69
[2016-10-22 16:00] VITALS: BP 132/60
[2016-10-22 19:20] VITALS: BP 134/62
--- NOTE | 2016-10-22 20:33 | PHACANCOPD ---
PHARMACY VANCOMYCIN DOSING Pt Demographics Demographics Patient Age:81 , Weight:124.800 , Gender: female Adjusted Body Weight Date: 10/20/16, Adjusted Body Weight: [82] Kg Events Past 24 Hours Events Past 24 Hours: NO: Change in CrCl, Dialysis, Diuretic Therapy, Elevation in WBC, Fever, Other, Pending Diagnostics, Pending Procedures Vancomycin Vancomycin Target Ranges: 10-20 mcg/ml Vancomycin Load Y/N: Yes Load Dose Date Time Vancomycin Load Dose: 1250MG Date: 10-20 Time: 2100 Vancomycin Dose Date: 10/20/16. Current Vancomycin Dose: [1000MG Q24H] Intermittent Dosing?: No Labs Labs Item Value Date Time White Blood Count 11.6 K/mm3 H 10/22/16 0532 Creatinine 1.53 MG/DL H 10/22/16531 Vancomycin Level Trough 13.5 UG/ML 10/22/162001 Vital Signs Label Value Date Time Patient Temperature 98.5 degrees F 10/22/16 1920 Temperature Source Tympanic 10/22/16 1920 Micro Microbiology 10/20/16 Blood Culture - Preliminary, Resulted No Growth after 48 hours. All Specime... 10/20/16 Blood Culture - Preliminary, Resulted No Growth after 48 hours. All Specime... Creatinine Clearance Date:10/20/16. Creatinine Clearance: [18]. Pending Labs TROUGH - @1999 Assessment and Plan Maintaining Current Dose?: Yes Reason for dose change: No Dose Change Pharmacist Note Pharmacist Note Date: 10/20/16. Pharmacist note:Trough of 13.5 is within target range, will continue current dosing. Aditional trough scheduled for 10-24 @20. Will continue to monitor and make adjustments as needed. ALEJANDRO REHMAN PHARMACY Oct 22, 2016 20:33
[2016-10-22] MEDS: VANCOMYCIN HCL 1,000 MG, VIAL MATE ADAPTER 1 EACH in D5W 250 ML IV SCH (20:37)
[2016-10-23] VITALS (7 sets, daily range): BP systolic 141–180; BP diastolic 60–80; PULSE 107
[2016-10-23] MEDS: SODIUM CHLORIDE 0.9% INJ 10 ML SYR IV SCH ×3 (05:09→21:26)
[2016-10-23] MEDS: MEROPENEM INJ 1 GM in D5W MINI-BAG PLUS 100 ML IV SCH ×2 (05:09→17:02)
[2016-10-23] MEDS: LEVOTHYROXINE 0.05 MG TAB (50 MCG) PO SCH (05:10)
[2016-10-23 05:12] LABS: BASO % 0.2 % (0.0-1.0); EOS # 0.8 K/mm3 (0.0-0.50); EOS % 6.9 % (0.0-3.0); LARGE UNSTAINED CELL # 0.4 K/mm3 (0.0-0.4); LARGE UNSTAINED CELL % 3.2 % (0.0-4.0); LYMPH # 1.9 K/mm3 (1.5-4.5); LYMPH % 17.9 % (24.0-44.0); MEAN CORPUSCULAR HEMOGLOBIN 33.1 pg (27.0-33.0); MEAN CORPUSCULAR HGB CONC 31.9 g/dl (32.0-36.5); MEAN CORPUSCULAR VOLUME 103.8 fl (80.0-96.0); MONO # 0.7 K/mm3 (0.0-0.8); MONO % 6.1 % (0.0-5.0); NEUTROPHILS # 7.1 K/mm3 (1.8-7.7); NEUTROPHILS % 65.7 % (36.0-66.0); PLATELET COUNT, AUTOMATED 209 k/mm3 (150-450); RED CELL DISTRIBUTION WIDTH 15.3 % (11.5-14.5); WHITE BLOOD COUNT 10.8 K/mm3 (4.0-10.0)
[2016-10-23 05:23] LABS: ALBUMIN 2.3 GM/DL (3.2-5.2); ALBUMIN/GLOBULIN RATIO 0.56 (1.00-1.93); BILIRUBIN,TOTAL 0.3 MG/DL (0.2-1.0); CALCIUM LEVEL 8.4 MG/DL (8.8-10.2); CREATININE FOR GFR 1.32 MG/DL (0.55-1.02); GLOMERULAR FILTRATION RATE 40.9 (>32); POTASSIUM SERUM 3.8 MEQ/L (3.5-5.1); TOTAL PROTEIN 6.4 GM/DL (6.4-8.2)
[2016-10-23] MEDS: ASPIRIN 81 MG ENTERIC TAB PO SCH (09:04)
[2016-10-23] MEDS: PANTOPRAZOLE 40MG INJ (PROTONIX) (C9113) IV SCH (09:04)
[2016-10-23] MEDS: FLECAINIDE 50MG TABLET PO SCH ×2 (09:04→21:23)
[2016-10-23] MEDS: SENOKOT S TAB PO SCH ×2 (09:04→21:23)
[2016-10-23] MEDS: ENOXAPARIN 30 MG/0.3 ML SYR (J1650) SC SCH (09:05)
[2016-10-23] MEDS: FUROSEMIDE 40 MG/4 ML VIAL (J1940) IV SCH (09:06)
[2016-10-23] MEDS: HumaLOG INSULIN (NovoLOG) PER UNIT SC SCH ×4 (09:06→21:00)
[2016-10-23] MEDS: NYSTATIN 100,000 UNITS/GM TOPICAL PWD 15 GM TOP SCH ×2 (09:07→21:27)
[2016-10-23] MEDS: FLUTICASONE PROP 0.05% NASAL SPRAY 16 GM (FLONASE) SCH ×2 (09:07→21:23)
[2016-10-23] MEDS: IPRATROPIUM 0.5MG/ALBUTEROL 2.5MG INH SOL UD 3ML (DUONEB)(J7620) NEB SCH ×5 (09:56→23:08)
--- NOTE | 2016-10-23 11:46 | IPNPDOC ---
Subjective Date Seen The patient was seen on 10/23/16. Subjective Chief Complaint/HPI The patient is a 81-year-old female admitted with a reason for visit of Congestive Heart Failure. Events since last encounter Pt states she is feeling better. States still some SOB but feels it is better. Denies CP, Abd pain. Pt pleasantly confused. Believed she had been kidnapped. Did not know she was in the hospital. Stated year was 7016. Stated "Catracho" was president. Objective Physical Examination General Exam: Positive: Other (Grrogy, looks a little agitated/uncomfortable at times - janine are in mits to prevent her from pulling off her oxygen mask) Chest Exam: Positive: Diminished Heart Exam: Positive: Rate Normal, Negative: Murmurs Abdomen Exam: Positive: BS Hypoactive, Soft, Negative: Tenderness Extremity Exam: Positive: Edema (1+ edema) Skin Exam: Positive: Other skin issue (BL LE with raised erythematous area on both shins with scabbed areas and a pulstule on right andrade) Psych Exam: Positive: Other (Patient believed she had been kidnapped. Did not know she was in the hospital. Stated year was 7016. Stated "Catracho" was president.) Assessment /Plan Problems (1) Acute diastolic (congestive) heart failure Status: Acute Response to Treatment: Improving Problem Text: 10/23 - Lasix 40 mg IV BID, 10/22 I/O ; therefore, change to net -1.2L QD, FR 1500/2 gm Na 10/21 - CIP/T-I x 1 12/2014 TTE diastolic grade 1-[place]lez[place] (2) Community acquired bacterial pneumonia Status: Acute Problem Text: 10/23 - IV Meropenem and Vanco, D4. D/C Central line. IV Zosyn and Vanco ordered WBC down BC pending (3) Cellulitis Status: Acute Problem Text: D4 vanco/juwan keep central line until peripheral established RLE cellulitis 2 R 2 toe dorsal wound 2 ? 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 (also get WCX) (plan consult surgery 10/24) 10/23 check XR, WBC down to 10.8, Tm 99 3/2 BCX -x 2 (4) Paroxysmal atrial fibrillation Status: Acute Problem Text: 10/23 HR 110-120s+ Lopressor to flec HD Lopressor 25 BID/dilt ER 120 BID/flec 50 BID (5) MARIVEL (obstructive sleep apnea) Status: Chronic Response to Treatment: Stable Problem Text: untreated MARIVEL - will not tolerate CPAP (6) Diabetes Status: Chronic Response to Treatment: Stable Problem Text: Continue SSI (7) HTN (hypertension) Status: Chronic Problem Text: BP meds on hold due to low BP Plan/VTE VTE Prophylaxis Ordered?: Yes (Lovenox) Plan/Urinary Catheter Reason for insertion/continuin: Critical Pt monitoring Plan 10/23 PT consulted-came from [place]-will probably need short term rehab VS, I&O, 24H, Fishbone Vital Signs/I&O Vital Signs Date Time Temp Pulse Resp B/P Pulse Ox O2 Delivery O2 Flow Rate FiO2 10/23/16 08:00 99.0 108 28 142/60 96 Nasal Cannula 2.0 10/22/16 04:03 28 I&O- Last 24 Hours up to 6 AM 10/23/16 06:00 Intake Total 2070 ml Output Total 1525 ml Balance 545 ml Laboratory Data 24H LABS Laboratory Tests 2 10/22/16 12:05: Bedside Glucose (Misc Panel) 166H 10/22/16 16:45: Bedside Glucose (Misc Panel) 117H 10/22/16 20:02: Vancomycin Level Trough 13.5 10/22/16 20:06: Bedside Glucose (Misc Panel) 112H 10/23/16 04:54: Blood Urea Nitrogen 35H, Creatinine 1.32H, Sodium Level 142, Potassium Level 3.8 , Chloride Level 102, Carbon Dioxide Level 34H, Calcium Level 8.4L, Aspartate Amino Transf (AST/SGOT) 38H, Alanine Aminotransferase (ALT/SGPT) 23, Alkaline Phosphatase 68, Total Bilirubin 0.3, Total Protein 6.4, Albumin 2.3L, Albumin/ Globulin Ratio 0.56L, Anion Gap 6L, White Blood Count 10.8H, Red Blood Count 2.94L, Hemoglobin 9.7L, Hematocrit 30.5L, Mean Corpuscular Volume 103.8H, Mean Corpuscular Hemoglobin 33.1H, Mean Corpuscular Hemoglobin Concent 31.9L, Red Cell Distribution Width 15.3H, Platelet Count 209, Neutrophils (%) (Auto) 65.7, Lymphocytes (%) (Auto) 17.9L, Monocytes (%) (Auto) 6.1H, Eosinophils (%) (Auto) 6.9H, Basophils (%) (Auto) 0.2, Neutrophils # (Auto) 7.1, Lymphocytes # (Auto) 1.9, Monocytes # (Auto) 0.7, Eosinophils # (Auto) 0.8H, Basophils # (Auto) 0.0, Glomerular Filtration Rate 40.9, Large Unclassified Cells # 0.4, Large Unclassified Cells % 3.2 CBC/BMP Laboratory Tests 10/23/16 04:54 Calcium Level 8.4 L, Aspartate Amino Transf (AST/SGOT) 38 H, Alanine Aminotransferase (ALT/SGPT) 23, Alkaline Phosphatase 68, Total Bilirubin 0.3, Total Protein 6.4, Albumin 2.3 L, Red Blood Count 2.94 L, Mean Corpuscular Volume 103.8 H, Mean Corpuscular Hemoglobin 33.1 H, Mean Corpuscular Hemoglobin Concent 31.9 L, Red Cell Distribution Width 15.3 H, Neutrophils (%) (Auto) 65.7 , Lymphocytes (%) (Auto) 17.9 L, Monocytes (%) (Auto) 6.1 H, Eosinophils (%) ( Auto) 6.9 H, Basophils (%) (Auto) 0.2, Neutrophils # (Auto) 7.1, Lymphocytes # ( Auto) 1.9, Monocytes # (Auto) 0.7, Eosinophils # (Auto) 0.8 H, Basophils # (Auto ) 0.0 Microbiology Microbiology 10/20/16 Blood Culture - Preliminary, Resulted No Growth after 48 hours. All Specime... 10/20/16 Blood Culture - Preliminary, Resulted No Growth after 48 hours. All Specime... Bobo Martin Oct 23, 2016 11:46 Itz Christianson M.D. Oct 23, 2016 14:12
[2016-10-23] MEDS: VANCOMYCIN HCL 1,000 MG, VIAL MATE ADAPTER 1 EACH in D5W 250 ML IV SCH (21:23)
[2016-10-23] MEDS: METOPROLOL TART 25 MG TABLET PO SCH (21:25)
[2016-10-24] VITALS: BP 141/66; PULSE 78
[2016-10-24 04:00] VITALS: BP 168/72; PULSE 86
[2016-10-24] MEDS: LEVOTHYROXINE 0.05 MG TAB (50 MCG) PO SCH (05:28)
[2016-10-24] MEDS: SODIUM CHLORIDE 0.9% INJ 10 ML SYR IV SCH ×3 (05:29→21:42)
[2016-10-24] MEDS: MEROPENEM INJ 1 GM in D5W MINI-BAG PLUS 100 ML IV SCH ×2 (05:29→17:33)
[2016-10-24] MEDS: IPRATROPIUM 0.5MG/ALBUTEROL 2.5MG INH SOL UD 3ML (DUONEB)(J7620) NEB SCH ×4 (06:06→19:46)
[2016-10-24 06:10] LABS: BASO % 0.3 % (0.0-1.0); EOS # 0.8 K/mm3 (0.0-0.50); LARGE UNSTAINED CELL # 0.3 K/mm3 (0.0-0.4); LARGE UNSTAINED CELL % 2.9 % (0.0-4.0); LYMPH # 2.2 K/mm3 (1.5-4.5); LYMPH % 20.9 % (24.0-44.0); MEAN CORPUSCULAR HEMOGLOBIN 32.9 pg (27.0-33.0); MEAN CORPUSCULAR HGB CONC 31.6 g/dl (32.0-36.5); MEAN CORPUSCULAR VOLUME 104.2 fl (80.0-96.0); MONO # 0.7 K/mm3 (0.0-0.8); MONO % 6.5 % (0.0-5.0); NEUTROPHILS # 6.4 K/mm3 (1.8-7.7); NEUTROPHILS % 61.4 % (36.0-66.0); PLATELET COUNT, AUTOMATED 233 k/mm3 (150-450); RED CELL DISTRIBUTION WIDTH 15.4 % (11.5-14.5); WHITE BLOOD COUNT 10.4 K/mm3 (4.0-10.0)
[2016-10-24 06:31] LABS: ALBUMIN 2.4 GM/DL (3.2-5.2); ALBUMIN/GLOBULIN RATIO 0.67 (1.00-1.93); BILIRUBIN,TOTAL 0.3 MG/DL (0.2-1.0); CALCIUM LEVEL 8.6 MG/DL (8.8-10.2); CREATININE FOR GFR 1.22 MG/DL (0.55-1.02); GLOMERULAR FILTRATION RATE 44.8 (>32)
[2016-10-24] MEDS: HumaLOG INSULIN (NovoLOG) PER UNIT SC SCH ×4 (07:38→21:00)
--- NOTE | 2016-10-24 07:42 | REP ---
RIGHT FOOT, TWO VIEWS: Two views of the right foot are performed. I see no evidence of acute fracture or dislocation. There are no definite radiographic signs of osteomyelitis, with no osseous destruction or definite periosteal reaction. There is mild inferior calcaneal spurring. There is mild calcification in the distal end of the Achilles tendon at the posterior margin of the calcaneus. Diffuse vascular calcifications are present. There is moderately severe joint space narrowing at the first metatarsophalangeal joint with moderate spurring and subchondral sclerosis. IMPRESSION: Degenerative changes. No definite radiographic signs of osteomyelitis, specifically in the second toe. Signed by Shabbir Gomez MD 10/24/2016 04:09 P
[2016-10-24 08:00] VITALS: BP 139/62
--- NOTE | 2016-10-24 09:33 | IPNPDOC ---
Subjective Date Seen The patient was seen on 10/24/16. Subjective Chief Complaint/HPI Pt without new concerns. She feels weak, tired, and has some SOB. General: Reports: Fatigue Constitutional: Denies: Chills, Fever ENT: Denies: Head Aches Pulmonary: Reports: Cough, Dyspnea Cardiovascular: Denies: Chest Pain, Palpitations Gastrointestinal: Denies: Diarrhea, Nausea, Vomiting Neurological: Reports: Weakness Psych: Reports: Mood Normal Objective Physical Examination General Exam: Positive: Alert, No Acute Distress ENT Exam: Positive: Mucous membr. moist/pink Chest Exam: Positive: Diminished (throughout) Heart Exam: Positive: Rate Normal, Regular Rhythm, Negative: Murmurs Abdomen Exam: Positive: Normal bowel sounds, Soft, Negative: Tenderness Extremity Exam: Positive: Edema (2 mm pitting pretibial edema) Skin Exam: Positive: Other skin issue (BL LE with raised erythematous area on both shins with scabbed areas and a pulstule on right andrade) Assessment /Plan Problems (1) Acute diastolic (congestive) heart failure Status: Acute Response to Treatment: Improving Problem Text: 10/24 - I: 1590 O:600 On Lasix 40 mg IV q6H, but did not receive a dose between 14:19 yesterday and ~12:00 today; I d/w patient's nurse, who is uncertain why overnight doses were not given. Patient appears to still be fluid overloaded - I confirmed with her nurse that doses will now be given Q6H. (KES) 10/23 - Lasix 40 mg IV BID, 10/22 I/O ; therefore, change to net -1.2L QD, FR 1500/2 gm Na 10/21 - CIP/T-I x 1 12/2014 TTE diastolic grade 1-Slezka (2) Community acquired bacterial pneumonia Status: Acute Problem Text: 10/24 - IV Meropenem and Vanco, D5; Patient now had a peripheral line but her nurse states she thinks that there is a strong likelihood that this line will come out at some point; will continue central line for now to ensure that antibiotics and lasix can be given IV. 10/23 - IV Meropenem and Vanco, D4. D/C Central line. IV Zosyn and Vanco ordered WBC down BC pending (3) Cellulitis Status: Acute Problem Text: 10/24 - D5 vanco/meropenem; I saw patient with Evangelista from PT/ wound care, who is of the opinion that the wound is scabbed appropriately and debridement is not needed at this time - I tend to agree with this assessment. X-ray is unremarkable. Afebrile in last 24H and WBCs are trending down. Will monitor. 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 ( also get WCX) (plan consult surgery 10/24) 10/20 BCX -x 2 (4) Paroxysmal atrial fibrillation Status: Acute Problem Text: 10/24 HR mostly in the 80s 10/23 HR 110-120s+ Lopressor to flec HD Lopressor 25 BID/dilt ER 120 BID/flec 50 BID (5) MARIVEL (obstructive sleep apnea) Status: Chronic Response to Treatment: Stable Problem Text: Untreated MARIVEL - will not tolerate CPAP (6) Diabetes Status: Chronic Response to Treatment: Stable Problem Text: Continue SSI (7) HTN (hypertension) Status: Chronic Problem Text: BP meds on hold due to low BP Plan/VTE VTE Prophylaxis Ordered?: Yes (Lovenox) Plan/Urinary Catheter Reason for insertion/continuin: Critical Pt monitoring Plan Family Medicine Attending Note: Patient seen and examined; I d/w ARACELI Hollis and I agree with her note with above additions as noted. Patient states her breathing is better today, though she has poor respiratory effort and absent breath sounds at bilateral bases. Continue diuresis with IV lasix. I examined 2nd toe with Evangelista from PT/wound care as above. Continue Vancomycin/ Meropenem for pneumonia and cellulitis. (KES) VS, I&O, 24H, Fishbone Vital Signs/I&O Vital Signs Date Time Temp Pulse Resp B/P Pulse Ox O2 Delivery O2 Flow Rate FiO2 10/24/16 08:00 96.5 89 18 139/62 95 Nasal Cannula 2.0 10/22/16 04:03 28 I&O- Last 24 Hours up to 6 AM 10/24/16 05:59 Intake Total 1430 ml Output Total 600 ml Balance 830 ml Laboratory Data 24H LABS Laboratory Tests 2 10/23/16 11:56: Bedside Glucose (Misc Panel) 129H 10/23/16 16:40: Bedside Glucose (Misc Panel) 107 10/23/16 21:01: Bedside Glucose (Misc Panel) 117H 10/24/16 05:38: Blood Urea Nitrogen 29H, Creatinine 1.22H, Sodium Level 141, Potassium Level 4.0 , Chloride Level 101, Carbon Dioxide Level 33H, Calcium Level 8.6L, Aspartate Amino Transf (AST/SGOT) 43H, Alanine Aminotransferase (ALT/SGPT) 32, Alkaline Phosphatase 73, Total Bilirubin 0.3, Total Protein 6.0L, Albumin 2.4L, Albumin/ Globulin Ratio 0.67L, Anion Gap 7L, B-Type Natriuretic Peptide 102H, White Blood Count 10.4H, Red Blood Count 3.12L, Hemoglobin 10.3L, Hematocrit 32.5L, Mean Corpuscular Volume 104.2H, Mean Corpuscular Hemoglobin 32.9, Mean Corpuscular Hemoglobin Concent 31.6L, Red Cell Distribution Width 15.4H, Platelet Count 233, Neutrophils (%) (Auto) 61.4, Lymphocytes (%) (Auto) 20.9L, Monocytes (%) (Auto) 6.5H, Eosinophils (%) (Auto) 8.0H, Basophils (%) (Auto) 0.3 , Neutrophils # (Auto) 6.4, Lymphocytes # (Auto) 2.2, Monocytes # (Auto) 0.7, Eosinophils # (Auto) 0.8H, Basophils # (Auto) 0.0, Glomerular Filtration Rate 44.8, Large Unclassified Cells # 0.3, Large Unclassified Cells % 2.9, Magnesium Level 2.0 CBC/BMP Laboratory Tests 10/24/16 05:38 Calcium Level 8.6 L, Aspartate Amino Transf (AST/SGOT) 43 H, Alanine Aminotransferase (ALT/SGPT) 32, Alkaline Phosphatase 73, Total Bilirubin 0.3, Total Protein 6.0 L, Albumin 2.4 L, Red Blood Count 3.12 L, Mean Corpuscular Volume 104.2 H, Mean Corpuscular Hemoglobin 32.9, Mean Corpuscular Hemoglobin Concent 31.6 L, Red Cell Distribution Width 15.4 H, Neutrophils (%) (Auto) 61.4 , Lymphocytes (%) (Auto) 20.9 L, Monocytes (%) (Auto) 6.5 H, Eosinophils (%) ( Auto) 8.0 H, Basophils (%) (Auto) 0.3, Neutrophils # (Auto) 6.4, Lymphocytes # ( Auto) 2.2, Monocytes # (Auto) 0.7, Eosinophils # (Auto) 0.8 H, Basophils # (Auto ) 0.0 Microbiology Microbiology 10/20/16 Blood Culture - Preliminary, Resulted No Growth after 72 hours. All specime... 10/20/16 Blood Culture - Preliminary, Resulted No Growth after 72 hours. All specime... DAVEY CANCINO PA-C Oct 24, 2016 09:33 SHAYY CRUZ MD Oct 24, 2016 13:58
[2016-10-24] MEDS: METOPROLOL TART 25 MG TABLET PO SCH ×2 (09:40→21:40)
[2016-10-24] MEDS: SENOKOT S TAB PO SCH ×2 (09:40→21:40)
[2016-10-24] MEDS: ASPIRIN 81 MG ENTERIC TAB PO SCH (09:40)
[2016-10-24] MEDS: PANTOPRAZOLE 40MG INJ (PROTONIX) (C9113) IV SCH (09:40)
[2016-10-24] MEDS: ENOXAPARIN 30 MG/0.3 ML SYR (J1650) SC SCH (09:40)
[2016-10-24] MEDS: FLUTICASONE PROP 0.05% NASAL SPRAY 16 GM (FLONASE) SCH ×2 (09:40→21:40)
[2016-10-24] MEDS: FLECAINIDE 50MG TABLET PO SCH ×2 (09:40→21:40)
[2016-10-24] MEDS: NYSTATIN 100,000 UNITS/GM TOPICAL PWD 15 GM TOP SCH ×2 (09:41→21:41)
[2016-10-24] MEDS ORDERED: SLF 3 ML SYR IV PRN (11:00)
[2016-10-24 11:40] VITALS: BP 146/66
[2016-10-24] MEDS: FUROSEMIDE 40 MG/4 ML VIAL (J1940) IV SCH ×2 (12:09→17:33)
[2016-10-24] MEDS: SLF 3 ML SYR IV SCH ×2 (12:09→21:42)
[2016-10-24 15:30] VITALS: BP 132/50
[2016-10-24 20:00] VITALS: BP 142/64
[2016-10-24] MEDS: VANCOMYCIN HCL 1,000 MG, VIAL MATE ADAPTER 1 EACH in D5W 250 ML IV SCH (21:39)
[2016-10-25] VITALS (7 sets, daily range): BP systolic 121–156; BP diastolic 61–69
[2016-10-25] MEDS: FUROSEMIDE 40 MG/4 ML VIAL (J1940) IV SCH ×4 (01:04→18:06)
[2016-10-25] MEDS: MEROPENEM INJ 1 GM in D5W MINI-BAG PLUS 100 ML IV SCH ×2 (05:17→18:07)
[2016-10-25] MEDS: SLF 3 ML SYR IV SCH ×3 (05:18→21:19)
[2016-10-25] MEDS: LEVOTHYROXINE 0.05 MG TAB (50 MCG) PO SCH (05:18)
[2016-10-25] MEDS: SODIUM CHLORIDE 0.9% INJ 10 ML SYR IV SCH ×3 (05:32→21:19)
[2016-10-25 05:39] LABS: BASO % 0.3 % (0.0-1.0); EOS # 0.8 K/mm3 (0.0-0.50); EOS % 7.9 % (0.0-3.0); LARGE UNSTAINED CELL # 0.2 K/mm3 (0.0-0.4); LARGE UNSTAINED CELL % 2.3 % (0.0-4.0); LYMPH # 1.9 K/mm3 (1.5-4.5); LYMPH % 19.7 % (24.0-44.0); MEAN CORPUSCULAR HEMOGLOBIN 33.3 pg (27.0-33.0); MEAN CORPUSCULAR HGB CONC 31.9 g/dl (32.0-36.5); MEAN CORPUSCULAR VOLUME 104.3 fl (80.0-96.0); MONO # 0.6 K/mm3 (0.0-0.8); MONO % 6.5 % (0.0-5.0); NEUTROPHILS # 6.1 K/mm3 (1.8-7.7); NEUTROPHILS % 63.3 % (36.0-66.0); PLATELET COUNT, AUTOMATED 239 k/mm3 (150-450); RED CELL DISTRIBUTION WIDTH 15.4 % (11.5-14.5); WHITE BLOOD COUNT 9.6 K/mm3 (4.0-10.0)
[2016-10-25 06:06] LABS: ALBUMIN 2.5 GM/DL (3.2-5.2); ALBUMIN/GLOBULIN RATIO 0.74 (1.00-1.93); BILIRUBIN,TOTAL 0.3 MG/DL (0.2-1.0); CALCIUM LEVEL 8.7 MG/DL (8.8-10.2); CREATININE FOR GFR 1.08 MG/DL (0.55-1.02); GLOMERULAR FILTRATION RATE 51.6 (>32); POTASSIUM SERUM 3.9 MEQ/L (3.5-5.1); TOTAL PROTEIN 5.9 GM/DL (6.4-8.2)
[2016-10-25] MEDS: IPRATROPIUM 0.5MG/ALBUTEROL 2.5MG INH SOL UD 3ML (DUONEB)(J7620) NEB SCH ×4 (07:31→19:38)
[2016-10-25] MEDS: HumaLOG INSULIN (NovoLOG) PER UNIT SC SCH ×4 (09:24→21:13)
[2016-10-25] MEDS: ENOXAPARIN 30 MG/0.3 ML SYR (J1650) SC SCH (09:24)
[2016-10-25] MEDS: PANTOPRAZOLE 40MG INJ (PROTONIX) (C9113) IV SCH (09:24)
[2016-10-25] MEDS: SENOKOT S TAB PO SCH ×2 (09:25→21:13)
[2016-10-25] MEDS: FLUTICASONE PROP 0.05% NASAL SPRAY 16 GM (FLONASE) SCH ×2 (09:25→21:13)
[2016-10-25] MEDS: NYSTATIN 100,000 UNITS/GM TOPICAL PWD 15 GM TOP SCH ×2 (09:25→21:14)
[2016-10-25] MEDS: ASPIRIN 81 MG ENTERIC TAB PO SCH (09:25)
[2016-10-25] MEDS: METOPROLOL TART 25 MG TABLET PO SCH ×2 (09:25→21:19)
--- NOTE | 2016-10-25 09:26 | IPNPDOC ---
Subjective Date Seen The patient was seen on 10/25/16. Subjective Chief Complaint/HPI Pt this morning notes that she does not have any SOB, feels her breathing is at baseline, but she does have a cough, occ sputum production. She insists that she is feeling the same as she was when she came in. General: Denies: Fatigue Constitutional: Denies: Chills, Fever ENT: Denies: Head Aches Pulmonary: Reports: Cough, Denies: Dyspnea Cardiovascular: Denies: Chest Pain, Palpitations Gastrointestinal: Denies: Diarrhea, Nausea, Vomiting Neurological: Denies: Weakness Psych: Reports: Mood Normal Objective Physical Examination General Exam: Positive: Alert, No Acute Distress (she can move herself about in bed this morning, much more awake and alert.) ENT Exam: Positive: Mucous membr. moist/pink Chest Exam: Positive: Diminished (throughout) Heart Exam: Positive: Rate Normal, Regular Rhythm, Negative: Murmurs Abdomen Exam: Positive: Normal bowel sounds, Soft, Negative: Tenderness Extremity Exam: Positive: Edema (2 mm pitting pretibial edema) Skin Exam: Positive: Other skin issue (BL LE with raised erythematous area on both shins with scabbed areas and a pulstule on right andrade) Assessment /Plan Problems (1) Acute diastolic (congestive) heart failure Status: Acute Response to Treatment: Improving Problem Text: 10/25 - I:1450 O : 2400 - Received Lasix 40 mg IV q6h, x 2 yesterday, Scr stable. Pressures stable, likely able to transition to PO Lasix tomorrow. 10/24 - I: 1590 O:600 On Lasix 40 mg IV q6H, but did not receive a dose between 14:19 yesterday and ~12:00 today; I d/w patient's nurse, who is uncertain why overnight doses were not given. Patient appears to still be fluid overloaded - I confirmed with her nurse that doses will now be given Q6H. (KEBrian) 10/23 - Lasix 40 mg IV BID, 10/22 I/O ; therefore, change to net -1.2L QD, FR 1500/2 gm Na 10/21 - CIP/T-I x 1 12/2014 TTE diastolic grade 1-Slezka (2) Cellulitis Status: Acute Problem Text: 3/7 - IV Meropenem and Vanco, D6 3/ - D5 vanco/meropenem; I saw patient with Evangelista from PT/wound care, who is of the opinion that the wound is scabbed appropriately and debridement is not needed at this time - I tend to agree with this assessment. X-ray is unremarkable. Afebrile in last 24H and WBCs are trending down. Will monitor. ( KES) 10/23 check XR, WBC down to 10.8, Tm 99 RLE cellulitis due to R 2nd toe dorsal wound 2 ? 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 ( also get WCX) (plan consult surgery 10/24) 3 BCX -x 2 (3) Paroxysmal atrial fibrillation Status: Acute Problem Text: 10/24 HR mostly in the 80s 10/23 HR 110-120s+ Lopressor to flec HD Lopressor 25 BID/dilt ER 120 BID/flec 50 BID (4) MARIVEL (obstructive sleep apnea) Status: Chronic Response to Treatment: Stable Problem Text: Untreated MARIVEL - will not tolerate CPAP (5) Diabetes Status: Chronic Response to Treatment: Stable Problem Text: Continue SSI (6) HTN (hypertension) Status: Chronic Problem Text: BP meds on hold due to low BP Plan/VTE VTE Prophylaxis Ordered?: Yes (Lovenox) Plan/Urinary Catheter Reason for insertion/continuin: Critical Pt monitoring VS, I&O, 24H, Nichelle Vital Signs/I&O Vital Signs Date Time Temp Pulse Resp B/P Pulse Ox O2 Delivery O2 Flow Rate FiO2 10/25/16 07:30 98.3 90 20 148/69 90 Room Air 10/25/16 04:00 1.0 10/22/16 04:03 28 I&O- Last 24 Hours up to 6 AM 10/25/16 06:00 Intake Total 1350 ml Output Total 3125 ml Balance -1775 ml Laboratory Data 24H LABS Laboratory Tests 2 10/24/16 11:54: Bedside Glucose (Misc Panel) 120H 10/24/16 16:41: Bedside Glucose (Misc Panel) 138H 10/24/16 21:47: Bedside Glucose (Misc Panel) 119H 10/25/16 05:17: Blood Urea Nitrogen 27H, Creatinine 1.08H, Sodium Level 144, Potassium Level 3.9 , Chloride Level 100, Carbon Dioxide Level 37H, Calcium Level 8.7L, Aspartate Amino Transf (AST/SGOT) 36, Alanine Aminotransferase (ALT/SGPT) 27, Alkaline Phosphatase 69, Total Bilirubin 0.3, Total Protein 5.9L, Albumin 2.5L, Albumin/ Globulin Ratio 0.74L, Anion Gap 7L, White Blood Count 9.6, Red Blood Count 3.12L , Hemoglobin 10.4L, Hematocrit 32.5L, Mean Corpuscular Volume 104.3H, Mean Corpuscular Hemoglobin 33.3H, Mean Corpuscular Hemoglobin Concent 31.9L, Red Cell Distribution Width 15.4H, Platelet Count 239, Neutrophils (%) (Auto) 63.3, Lymphocytes (%) (Auto) 19.7L, Monocytes (%) (Auto) 6.5H, Eosinophils (%) (Auto) 7.9H, Basophils (%) (Auto) 0.3, Neutrophils # (Auto) 6.1, Lymphocytes # (Auto) 1.9, Monocytes # (Auto) 0.6, Eosinophils # (Auto) 0.8H, Basophils # (Auto) 0.0, Glomerular Filtration Rate 51.6, Large Unclassified Cells # 0.2, Large Unclassified Cells % 2.3 CBC/BMP Laboratory Tests 10/25/16 05:17 Calcium Level 8.7 L, Aspartate Amino Transf (AST/SGOT) 36, Alanine Aminotransferase (ALT/SGPT) 27, Alkaline Phosphatase 69, Total Bilirubin 0.3, Total Protein 5.9 L, Albumin 2.5 L, Red Blood Count 3.12 L, Mean Corpuscular Volume 104.3 H, Mean Corpuscular Hemoglobin 33.3 H, Mean Corpuscular Hemoglobin Concent 31.9 L, Red Cell Distribution Width 15.4 H, Neutrophils (%) (Auto) 63.3 , Lymphocytes (%) (Auto) 19.7 L, Monocytes (%) (Auto) 6.5 H, Eosinophils (%) ( Auto) 7.9 H, Basophils (%) (Auto) 0.3, Neutrophils # (Auto) 6.1, Lymphocytes # ( Auto) 1.9, Monocytes # (Auto) 0.6, Eosinophils # (Auto) 0.8 H, Basophils # (Auto ) 0.0 Microbiology Microbiology 10/20/16 Blood Culture - Preliminary, Resulted No Growth after 72 hours. All specime... 10/20/16 Blood Culture - Preliminary, Resulted No Growth after 72 hours. All specime... DAVEY CANCINO PA-C Oct 25, 2016 09:26 Itz Christianson M.D. Oct 25, 2016 16:37 , Lymphocytes (%) (Auto) 19.7 L, Monocytes (%) (Auto) 6.5 H, Eosinophils (%) ( Auto) 7.9 H, Basophils (%) (Auto) 0.3, Neutrophils # (Auto) 6.1, Lymphocytes # ( Auto) 1.9, Monocytes # (Auto) 0.6, Eosinophils # (Auto) 0.8 H, Basophils # (Auto ) 0.0 Microbiology Microbiology 10/20/16 Blood Culture - Preliminary, Resulted No Growth after 72 hours. All specime... 10/20/16 Blood Culture - Preliminary, Resulted No Growth after 72 hours. All specime... DAVEY CANCINO PA-C Oct 25, 2016 09:26
[2016-10-25] MEDS: FLECAINIDE 50MG TABLET PO SCH ×2 (09:28→22:04)
[2016-10-25] MEDS: VANCOMYCIN HCL 1,000 MG, VIAL MATE ADAPTER 1 EACH in D5W 250 ML IV SCH (21:11)
[2016-10-26] MEDS: FUROSEMIDE 40 MG/4 ML VIAL (J1940) IV SCH ×2 (00:09→05:28)
[2016-10-26 02:00] VITALS: BP 162/52
[2016-10-26] MEDS: MEROPENEM INJ 1 GM in D5W MINI-BAG PLUS 100 ML IV SCH ×2 (05:24→18:10)
[2016-10-26] MEDS: LEVOTHYROXINE 0.05 MG TAB (50 MCG) PO SCH (05:25)
[2016-10-26] MEDS: SODIUM CHLORIDE 0.9% INJ 10 ML SYR IV SCH ×3 (05:28→21:38)
[2016-10-26] MEDS: SLF 3 ML SYR IV SCH ×3 (05:28→21:37)
[2016-10-26 06:00] VITALS: BP 168/77
[2016-10-26 06:08] LABS: ALBUMIN 2.4 GM/DL (3.2-5.2); ALBUMIN/GLOBULIN RATIO 0.57 (1.00-1.93); BASO % 0.3 % (0.0-1.0); BILIRUBIN,TOTAL 0.2 MG/DL (0.2-1.0); CALCIUM LEVEL 8.7 MG/DL (8.8-10.2); CREATININE FOR GFR 1.3 MG/DL (0.55-1.02); EOS # 0.7 K/mm3 (0.0-0.50); EOS % 6.6 % (0.0-3.0); GLOMERULAR FILTRATION RATE 41.6 (>32); LARGE UNSTAINED CELL # 0.3 K/mm3 (0.0-0.4); LYMPH # 2.1 K/mm3 (1.5-4.5); MEAN CORPUSCULAR HEMOGLOBIN 32.7 pg (27.0-33.0); MEAN CORPUSCULAR HGB CONC 31.7 g/dl (32.0-36.5); MEAN CORPUSCULAR VOLUME 103.4 fl (80.0-96.0); MONO # 0.7 K/mm3 (0.0-0.8); MONO % 6.6 % (0.0-5.0); NEUTROPHILS # 6.3 K/mm3 (1.8-7.7); NEUTROPHILS % 62.5 % (36.0-66.0); PLATELET COUNT, AUTOMATED 222 k/mm3 (150-450); POTASSIUM SERUM 3.7 MEQ/L (3.5-5.1); RED CELL DISTRIBUTION WIDTH 14.9 % (11.5-14.5); TOTAL PROTEIN 6.6 GM/DL (6.4-8.2); WHITE BLOOD COUNT 10.1 K/mm3 (4.0-10.0)
[2016-10-26] MEDS: IPRATROPIUM 0.5MG/ALBUTEROL 2.5MG INH SOL UD 3ML (DUONEB)(J7620) NEB SCH ×4 (08:13→20:04)
--- NOTE | 2016-10-26 08:55 | IPNPDOC ---
Subjective Date Seen The patient was seen on 10/26/16. Subjective Chief Complaint/HPI The patient is a 81-year-old female admitted with a reason for visit of Congestive Heart Failure. Events since last encounter Denies c/o. OOB with 1 assist and walker. States breathing is close to baseline. Not oxygen dependent at home. Constitutional: Denies: Chills, Fever, Night Sweats Skin: Denies: Breakdown, Bruising, Dry, Itching, Jaundice, Lesions, Nail Changes, Other, Rash Pulmonary: Reports: Dyspnea, Denies: Cough Cardiovascular: Denies: Chest Pain, Lt Headedness, Orthopnea, Palpitations, Paroxysmal Noc. Dyspnea Gastrointestinal: Denies: Abdominal Pain, Constipation, Diarrhea, Nausea, Vomiting Genitourinary: Reports: Other Symptoms (Cielo) Neurological: Denies: Change in speech, Confusion, Numbness, Weakness Psych: Reports: Mood Normal, Denies: Depression, Memory Issues Objective Physical Examination General Exam: Positive: Alert, No Acute Distress ENT Exam: Positive: Mucous membr. moist/pink Chest Exam: Positive: Clear to auscultation, Wheezing (occasional) Heart Exam: Positive: Rate Normal, Regular Rhythm, Negative: Murmurs Abdomen Exam: Positive: Normal bowel sounds, Soft, Negative: Tenderness Extremity Exam: Positive: Edema (2 mm pitting pretibial edema) Skin Exam: Positive: Other skin issue (BL LE with raised erythematous area on both shins) Assessment /Plan Problems (1) Acute diastolic (congestive) heart failure Status: Acute Response to Treatment: Improving Problem Text: 10/26/2016: showing improvement. will transition to po lasix. Monitor I/o. Continue 2 gram sodium diet with 1500 ml fluid restriction. 10/25 - I:1450 O : 2400 - Received Lasix 40 mg IV q6h, x 2 yesterday, Scr stable. Pressures stable, likely able to transition to PO Lasix tomorrow. 10/24 - I: 1590 O:600 On Lasix 40 mg IV q6H, but did not receive a dose between 14:19 yesterday and ~12:00 today; I d/w patient's nurse, who is uncertain why overnight doses were not given. Patient appears to still be fluid overloaded - I confirmed with her nurse that doses will now be given Q6H. (ESMER) 10/23 - Lasix 40 mg IV BID, 10/22 I/O ; therefore, change to net -1.2L QD, FR 1500/2 gm Na 10/21 - CIP/T-I x 1 12/2014 TTE diastolic grade 1-Slezka (2) Cellulitis Status: Acute Problem Text: 10/26/2016: Meropenem and Vanco D7. Consider stopping antibiotic tomorrow. 10/25 - IV Meropenem and Vanco, D6 10/24 - D5 vanco/meropenem; I saw patient with Evangelista from PT/wound care, who is of the opinion that the wound is scabbed appropriately and debridement is not needed at this time - I tend to agree with this assessment. X-ray is unremarkable. Afebrile in last 24H and WBCs are trending down. Will monitor. 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 10/24 HR mostly in the 80s 10/23 HR 110-120s+ Lopressor to flec HD Lopressor 25 BID/dilt ER 120 BID/flec 50 BID (4) MARIVEL (obstructive sleep apnea) Status: Chronic Response to Treatment: Stable Problem Text: Untreated MARIVEL - will not tolerate CPAP (5) Diabetes Status: Chronic Response to Treatment: Stable Problem Text: Continue SSI (6) HTN (hypertension) Status: Chronic Problem Text: BP meds on hold due to low BP Plan/VTE VTE Prophylaxis Ordered?: Yes (Lovenox) Plan/Urinary Catheter Reason for insertion/continuin: Critical Pt monitoring Plan Family Medicine Attending Note: Patient seen and examined; I d/w Eliz Duarte and I agree with her note. I saw patient with her nurse this afternoon - we tried to wake up up from a nap and she remained very sleepy and uncooperative with exam, which her nurse says was not the case earlier today. With coaxing, I was able to complete a basic neurologic exam - CN-2-12 are normal, face is symmetric, and she moves all four extremities to command. I suspect she may have some CO2 retention after sleeping given her body habitus. I asked her nurse to monitor her mental status this evening and call if she remains sleepy. She has had good urine output the last few days and I agree with transitioning to PO lasix. Today is day 7 of antibiotics for her foot, which looks better - consider d/c'ing these tomorrow. WBCs are essentially stable. (KES) VS, I&O, 24H, Fishbone Vital Signs/I&O Vital Signs Date Time Temp Pulse Resp B/P Pulse Ox O2 Delivery O2 Flow Rate FiO2 10/26/16 06:00 97.7 77 22 168/77 94 Nasal Cannula 2.0 10/22/16 04:03 28 I&O- Last 24 Hours up to 6 AM 10/26/16 06:00 Intake Total 1720 ml Output Total 2150 ml Balance -430 ml Laboratory Data 24H LABS Laboratory Tests 2 10/25/16 11:41: Bedside Glucose (Misc Panel) 111H 10/25/16 16:30: Bedside Glucose (Misc Panel) 116H 10/25/16 19:56: Vancomycin Level Trough 17.0 10/25/16 20:38: Bedside Glucose (Misc Panel) 98 10/26/16 05:32: Blood Urea Nitrogen 30H, Creatinine 1.30H, Sodium Level 140, Potassium Level 3.7 , Chloride Level 96L, Carbon Dioxide Level 37H, Calcium Level 8.7L, Aspartate Amino Transf (AST/SGOT) 34, Alanine Aminotransferase (ALT/SGPT) 23, Alkaline Phosphatase 77, Total Bilirubin 0.2, Total Protein 6.6, Albumin 2.4L, Albumin/ Globulin Ratio 0.57L, Anion Gap 7L, White Blood Count 10.1H, Red Blood Count 3.08L, Hemoglobin 10.1L, Hematocrit 31.9L, Mean Corpuscular Volume 103.4H, Mean Corpuscular Hemoglobin 32.7, Mean Corpuscular Hemoglobin Concent 31.7L, Red Cell Distribution Width 14.9H, Platelet Count 222, Neutrophils (%) (Auto) 62.5, Lymphocytes (%) (Auto) 21.0L, Monocytes (%) (Auto) 6.6H, Eosinophils (%) (Auto) 6.6H, Basophils (%) (Auto) 0.3, Neutrophils # (Auto) 6.3, Lymphocytes # (Auto) 2.1, Monocytes # (Auto) 0.7, Eosinophils # (Auto) 0.7H, Basophils # (Auto) 0.0, Glomerular Filtration Rate 41.6, Large Unclassified Cells # 0.3, Large Unclassified Cells % 3.0 CBC/BMP Laboratory Tests 10/26/16 05:32 Calcium Level 8.7 L, Aspartate Amino Transf (AST/SGOT) 34, Alanine Aminotransferase (ALT/SGPT) 23, Alkaline Phosphatase 77, Total Bilirubin 0.2, Total Protein 6.6, Albumin 2.4 L, Red Blood Count 3.08 L, Mean Corpuscular Volume 103.4 H, Mean Corpuscular Hemoglobin 32.7, Mean Corpuscular Hemoglobin Concent 31.7 L, Red Cell Distribution Width 14.9 H, Neutrophils (%) (Auto) 62.5 , Lymphocytes (%) (Auto) 21.0 L, Monocytes (%) (Auto) 6.6 H, Eosinophils (%) ( Auto) 6.6 H, Basophils (%) (Auto) 0.3, Neutrophils # (Auto) 6.3, Lymphocytes # ( Auto) 2.1, Monocytes # (Auto) 0.7, Eosinophils # (Auto) 0.7 H, Basophils # (Auto ) 0.0 Microbiology Microbiology 10/20/16 Blood Culture - Final, Complete NO GROWTH AFTER 5 DAYS 10/20/16 Blood Culture - Final, Complete NO GROWTH AFTER 5 DAYS Eliz Duarte Oct 26, 2016 08:55 SHAYY CRUZ MD Oct 26, 2016 16:12
[2016-10-26] MEDS ORDERED: FUROSEMIDE 40 MG TAB PO ONE ×2 (09:00→10:00)
[2016-10-26] MEDS: FLUTICASONE PROP 0.05% NASAL SPRAY 16 GM (FLONASE) SCH ×2 (09:00→21:37)
[2016-10-26] MEDS: ENOXAPARIN 30 MG/0.3 ML SYR (J1650) SC SCH (09:09)
[2016-10-26] MEDS: PANTOPRAZOLE 40MG INJ (PROTONIX) (C9113) IV SCH (09:09)
[2016-10-26] MEDS: HumaLOG INSULIN (NovoLOG) PER UNIT SC SCH ×4 (09:10→21:13)
[2016-10-26] MEDS: SENOKOT S TAB PO SCH ×2 (09:10→21:36)
[2016-10-26] MEDS: FLECAINIDE 50MG TABLET PO SCH ×2 (09:10→21:36)
[2016-10-26] MEDS: ASPIRIN 81 MG ENTERIC TAB PO SCH (09:10)
[2016-10-26] MEDS: NYSTATIN 100,000 UNITS/GM TOPICAL PWD 15 GM TOP SCH ×2 (09:11→21:37)
[2016-10-26] MEDS: METOPROLOL TART 25 MG TABLET PO SCH ×2 (09:13→21:36)
[2016-10-26 10:00] VITALS: BP 150/66
[2016-10-26 14:00] VITALS: BP 149/65
--- NOTE | 2016-10-26 16:48 | IPNPDOC ---
Text Note Date of Service The patient was seen on 10/26/16. NOTE I was called by patient's nurse because she is still quite sleepy; nurse placed a peripheral IV and she did not really wake up during this. She is also moaning at times. Patient seems to be listing to her right side and now has a questionable slight right mouth droop that was not present upon my exam earlier this afternoon; she is not moving her right arm/hand to command. I ordered a stat ABG and a stat head CT. VS,Fishbone, I+O VS, Fishbone, I+O Laboratory Tests 10/26/16 05:32 Calcium Level 8.7 L, Aspartate Amino Transf (AST/SGOT) 34, Alanine Aminotransferase (ALT/SGPT) 23, Alkaline Phosphatase 77, Total Bilirubin 0.2, Total Protein 6.6, Albumin 2.4 L, Red Blood Count 3.08 L, Mean Corpuscular Volume 103.4 H, Mean Corpuscular Hemoglobin 32.7, Mean Corpuscular Hemoglobin Concent 31.7 L, Red Cell Distribution Width 14.9 H, Neutrophils (%) (Auto) 62.5 , Lymphocytes (%) (Auto) 21.0 L, Monocytes (%) (Auto) 6.6 H, Eosinophils (%) ( Auto) 6.6 H, Basophils (%) (Auto) 0.3, Neutrophils # (Auto) 6.3, Lymphocytes # ( Auto) 2.1, Monocytes # (Auto) 0.7, Eosinophils # (Auto) 0.7 H, Basophils # (Auto ) 0.0 Vital Signs Date Time Temp Pulse Resp B/P Pulse Ox O2 Delivery O2 Flow Rate FiO2 10/26/16 14:00 96.9 81 20 149/65 94 Nasal Cannula 2.0 10/22/16 04:03 28 I&O- Last 24 Hours up to 6 AM 10/26/16 06:00 Intake Total 1720 ml Output Total 2150 ml Balance -430 ml SHAYY CRUZ MD Oct 26, 2016 16:48
[2016-10-26 17:09] LABS: ABG HCO3 37.6 MEQ/L (22.0-26.0); ABG PARTIAL PRESSURE CO2 60.9 mmHg (35.0-45.0); ABG PARTIAL PRESSURE O2 97.2 mmHg (75.0-100.0); ABG STANDARD HCO3 34.8 MEQ/L (22.0-26.0); ABG TOTAL CO2 39.5 MEQ/L (23.0-31.0); ABG pH (ARTERIAL) 7.409 UNITS (7.350-7.450)
--- NOTE | 2016-10-26 17:15 | IPNPDOC ---
Text Note Date of Service The patient was seen on 10/26/16. NOTE Patient now more awake and neuro exam is normal; face is symmetric and strength is 4/5 in b/l extremities and equal. CO2 very elevated at 60.9; she has a history of MARIVEL but is noncompliant with CPAP at home. I suspect CO2 retention as cause of her sleepiness/confusion. I will order here - perhaps she will be willing to wear this. CT of head canceled. VS,Fishbone, I+O VS, Fishbone, I+O Laboratory Tests 10/26/16 05:32 Calcium Level 8.7 L, Aspartate Amino Transf (AST/SGOT) 34, Alanine Aminotransferase (ALT/SGPT) 23, Alkaline Phosphatase 77, Total Bilirubin 0.2, Total Protein 6.6, Albumin 2.4 L, Red Blood Count 3.08 L, Mean Corpuscular Volume 103.4 H, Mean Corpuscular Hemoglobin 32.7, Mean Corpuscular Hemoglobin Concent 31.7 L, Red Cell Distribution Width 14.9 H, Neutrophils (%) (Auto) 62.5 , Lymphocytes (%) (Auto) 21.0 L, Monocytes (%) (Auto) 6.6 H, Eosinophils (%) ( Auto) 6.6 H, Basophils (%) (Auto) 0.3, Neutrophils # (Auto) 6.3, Lymphocytes # ( Auto) 2.1, Monocytes # (Auto) 0.7, Eosinophils # (Auto) 0.7 H, Basophils # (Auto ) 0.0 Vital Signs Date Time Temp Pulse Resp B/P Pulse Ox O2 Delivery O2 Flow Rate FiO2 10/26/16 14:00 96.9 81 20 149/65 94 Nasal Cannula 2.0 10/22/16 04:03 28 I&O- Last 24 Hours up to 6 AM 10/26/16 06:00 Intake Total 1720 ml Output Total 2150 ml Balance -430 ml SHAYY CRUZ MD Oct 26, 2016 17:15
[2016-10-26 18:00] VITALS: BP 155/69
[2016-10-26] MEDS: FUROSEMIDE 80 MG TAB PO SCH (18:10)
[2016-10-26] MEDS: VANCOMYCIN HCL 1,000 MG, VIAL MATE ADAPTER 1 EACH in D5W 250 ML IV SCH (21:36)
[2016-10-26 22:00] VITALS: BP 134/60
[2016-10-27] MEDS: MEROPENEM INJ 1 GM in D5W MINI-BAG PLUS 100 ML IV SCH ×2 (05:44→17:10)
[2016-10-27] MEDS: LEVOTHYROXINE 0.05 MG TAB (50 MCG) PO SCH (05:44)
[2016-10-27] MEDS: SLF 3 ML SYR IV SCH ×3 (05:44→22:33)
[2016-10-27] MEDS: SODIUM CHLORIDE 0.9% INJ 10 ML SYR IV SCH (05:44)
[2016-10-27 06:00] VITALS: BP 147/62
[2016-10-27 06:20] LABS: BASO % 0.4 % (0.0-1.0); EOS # 0.8 K/mm3 (0.0-0.50); EOS % 8.2 % (0.0-3.0); LARGE UNSTAINED CELL # 0.2 K/mm3 (0.0-0.4); LARGE UNSTAINED CELL % 2.2 % (0.0-4.0); LYMPH # 2.3 K/mm3 (1.5-4.5); LYMPH % 21.4 % (24.0-44.0); MEAN CORPUSCULAR HEMOGLOBIN 33.6 pg (27.0-33.0); MEAN CORPUSCULAR HGB CONC 32.2 g/dl (32.0-36.5); MEAN CORPUSCULAR VOLUME 104.5 fl (80.0-96.0); MONO # 0.9 K/mm3 (0.0-0.8); MONO % 8.7 % (0.0-5.0); NEUTROPHILS # 5.9 K/mm3 (1.8-7.7); NEUTROPHILS % 59.1 % (36.0-66.0); PLATELET COUNT, AUTOMATED 238 k/mm3 (150-450); RED CELL DISTRIBUTION WIDTH 15.4 % (11.5-14.5)
[2016-10-27 06:40] LABS: ALBUMIN 2.6 GM/DL (3.2-5.2); ALBUMIN/GLOBULIN RATIO 0.67 (1.00-1.93); BILIRUBIN,TOTAL 0.3 MG/DL (0.2-1.0); CALCIUM LEVEL 8.4 MG/DL (8.8-10.2); CREATININE FOR GFR 1.28 MG/DL (0.55-1.02); GLOMERULAR FILTRATION RATE 42.4 (>32); POTASSIUM SERUM 3.8 MEQ/L (3.5-5.1); TOTAL PROTEIN 6.5 GM/DL (6.4-8.2)
[2016-10-27] MEDS: IPRATROPIUM 0.5MG/ALBUTEROL 2.5MG INH SOL UD 3ML (DUONEB)(J7620) NEB SCH ×4 (07:05→20:00)
[2016-10-27] MEDS: PANTOPRAZOLE 40MG INJ (PROTONIX) (C9113) IV SCH (08:23)
[2016-10-27] MEDS: NYSTATIN 100,000 UNITS/GM TOPICAL PWD 15 GM TOP SCH ×2 (08:24→22:33)
[2016-10-27] MEDS: FLUTICASONE PROP 0.05% NASAL SPRAY 16 GM (FLONASE) SCH ×2 (08:24→22:33)
[2016-10-27] MEDS: ENOXAPARIN 30 MG/0.3 ML SYR (J1650) SC SCH (08:24)
[2016-10-27] MEDS: FLECAINIDE 50MG TABLET PO SCH ×2 (08:25→22:31)
[2016-10-27] MEDS: FUROSEMIDE 80 MG TAB PO SCH ×2 (08:25→17:10)
[2016-10-27] MEDS: METOPROLOL TART 25 MG TABLET PO SCH ×2 (08:25→22:32)
[2016-10-27] MEDS: SENOKOT S TAB PO SCH ×2 (08:25→22:35)
[2016-10-27] MEDS: ASPIRIN 81 MG ENTERIC TAB PO SCH (08:25)
[2016-10-27] MEDS: HumaLOG INSULIN (NovoLOG) PER UNIT SC SCH ×4 (08:25→21:00)
[2016-10-27 10:00] VITALS: BP 167/74
[2016-10-27] MEDS ORDERED: CEPACOL LOZENGE PO PRN (11:45)
--- NOTE | 2016-10-27 11:57 | IPNPDOC ---
Subjective Date Seen The patient was seen on 10/27/16. Subjective Chief Complaint/HPI Pt cont to feel better. She notes that her ability to get around is limited. She resides at [facility] with who has adv Parkinson's and requires nursing care. Her step dgt feels as though the pt will not be able to return there until stronger and more independent. General: Denies: Fatigue Constitutional: Denies: Chills, Fever Pulmonary: Denies: Cough, Dyspnea Cardiovascular: Denies: Chest Pain, Palpitations Gastrointestinal: Denies: Diarrhea, Nausea, Vomiting Neurological: Reports: Weakness Psych: Reports: Mood Normal Objective Physical Examination General Exam: Positive: Alert, No Acute Distress ENT Exam: Positive: Mucous membr. moist/pink Chest Exam: Positive: Clear to auscultation, Wheezing (occasional) Heart Exam: Positive: Rate Normal, Regular Rhythm, Negative: Murmurs Abdomen Exam: Positive: Normal bowel sounds, Soft, Negative: Tenderness Extremity Exam: Positive: Edema (2 mm pitting pretibial edema) Skin Exam: Positive: Other skin issue (BL LE with raised erythematous area on both shins) Assessment /Plan Problems (1) Acute diastolic (congestive) heart failure Status: Acute Response to Treatment: Improving Problem Text: 10/27 - On PO Lasix, cont. Appears compensated. 10/26/2016: showing improvement. will transition to po lasix. Monitor I/o. Continue 2 gram sodium diet with 1500 ml fluid restriction. 10/25 - I:1450 O : 2400 - Received Lasix 40 mg IV q6h, x 2 yesterday, Scr stable. Pressures stable, likely able to transition to PO Lasix tomorrow. 10/24 - I: 1590 O:600 On Lasix 40 mg IV q6H, but did not receive a dose between 14:19 yesterday and ~12:00 today; I d/w patient's nurse, who is uncertain why overnight doses were not given. Patient appears to still be fluid overloaded - I confirmed with her nurse that doses will now be given Q6H. (KEBrian) 10/23 - Lasix 40 mg IV BID, 10/22 I/O ; therefore, change to net -1.2L QD, FR 1500/2 gm Na 10/21 - CIP/T-I x 1 12/2014 TTE diastolic grade 1-Slezka (2) Cellulitis Status: Acute Problem Text: 10/27 - will d/c IV Abx today. 10/26/2016: Meropenem and Vanco D7. Consider stopping antibiotic tomorrow. 10/25 - IV Meropenem and Vanco, D6 10/24 - D5 vanco/meropenem; I saw patient with Evangelista from PT/wound care, who is of the opinion that the wound is scabbed appropriately and debridement is not needed at this time - I tend to agree with this assessment. X-ray is unremarkable. Afebrile in last 24H and WBCs are trending down. Will monitor. 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 10/24 HR mostly in the 80s 10/23 HR 110-120s+ Lopressor to flec HD Lopressor 25 BID/dilt ER 120 BID/flec 50 BID (4) MARIVEL (obstructive sleep apnea) Status: Chronic Response to Treatment: Stable Problem Text: Untreated MARIVEL - will not tolerate CPAP (5) Diabetes Status: Chronic Response to Treatment: Stable Problem Text: Continue SSI (6) HTN (hypertension) Status: Chronic Problem Text: BP meds on hold due to low BP Plan/VTE VTE Prophylaxis Ordered?: Yes (Lovenox) Plan/Urinary Catheter Reason for insertion/continuin: Critical Pt monitoring Plan Family Medicine Attending Note: Patient seen and examined this afternoon; I d/w BAYRON Hollis and I agree with her note. Patient is awake and alert today. Her only complaint is no BM since admission; she has received docusate and a suppository with no relief. Will give mag citrate 150 ml x1 for this. Plan for SNF tomorrow with placement on Monday. (KES) Disposition Plan for placement, spoke with Kevin Gil who anticipates bed availability by about Monday VS, I&O, 24H, Fishbone Vital Signs/I&O Vital Signs Date Time Temp Pulse Resp B/P Pulse Ox O2 Delivery O2 Flow Rate FiO2 10/27/16 10:00 96.1 76 17 167/74 95 Nasal Cannula 1.0 10/22/16 04:03 28 I&O- Last 24 Hours up to 6 AM 10/27/16 06:00 Intake Total 1570 ml Output Total 1200 ml Balance 370 ml Laboratory Data 24H LABS Laboratory Tests 2 10/26/16 16:46: Bedside Glucose (Misc Panel) 98 10/26/16 17:02: Arterial Blood pH 7.409, Arterial Blood Partial Pressure CO2 60.9*H, Arterial Blood Partial Pressure O2 97.2, Arterial Blood Total CO2 39.5H, Arterial Blood HCO3 37.6H, Arterial Blood Base Excess 11.0H, Arterial Blood Oxygen Saturation 97.8, Blood Gas Bicarbonate Standard 34.8H 10/26/16 21:10: Bedside Glucose (Misc Panel) 121H 10/27/16 05:28: Blood Urea Nitrogen 33H, Creatinine 1.28H, Sodium Level 139, Potassium Level 3.8 , Chloride Level 94L, Carbon Dioxide Level 37H, Calcium Level 8.4L, Aspartate Amino Transf (AST/SGOT) 38H, Alanine Aminotransferase (ALT/SGPT) 25, Alkaline Phosphatase 80, Total Bilirubin 0.3, Total Protein 6.5, Albumin 2.6L, Albumin/ Globulin Ratio 0.67L, Anion Gap 8, White Blood Count 10.0, Red Blood Count 3.02L , Hemoglobin 10.2L, Hematocrit 31.6L, Mean Corpuscular Volume 104.5H, Mean Corpuscular Hemoglobin 33.6H, Mean Corpuscular Hemoglobin Concent 32.2, Red Cell Distribution Width 15.4H, Platelet Count 238, Neutrophils (%) (Auto) 59.1, Lymphocytes (%) (Auto) 21.4L, Monocytes (%) (Auto) 8.7H, Eosinophils (%) (Auto) 8.2H, Basophils (%) (Auto) 0.4, Neutrophils # (Auto) 5.9, Lymphocytes # (Auto) 2.3, Monocytes # (Auto) 0.9H, Eosinophils # (Auto) 0.8H, Basophils # (Auto) 0.0 , Glomerular Filtration Rate 42.4, Large Unclassified Cells # 0.2, Large Unclassified Cells % 2.2 CBC/BMP Laboratory Tests 10/27/16 05:28 Calcium Level 8.4 L, Aspartate Amino Transf (AST/SGOT) 38 H, Alanine Aminotransferase (ALT/SGPT) 25, Alkaline Phosphatase 80, Total Bilirubin 0.3, Total Protein 6.5, Albumin 2.6 L, Red Blood Count 3.02 L, Mean Corpuscular Volume 104.5 H, Mean Corpuscular Hemoglobin 33.6 H, Mean Corpuscular Hemoglobin Concent 32.2, Red Cell Distribution Width 15.4 H, Neutrophils (%) (Auto) 59.1, Lymphocytes (%) (Auto) 21.4 L, Monocytes (%) (Auto) 8.7 H, Eosinophils (%) (Auto ) 8.2 H, Basophils (%) (Auto) 0.4, Neutrophils # (Auto) 5.9, Lymphocytes # (Auto ) 2.3, Monocytes # (Auto) 0.9 H, Eosinophils # (Auto) 0.8 H, Basophils # (Auto) 0.0 Microbiology Microbiology 10/20/16 Blood Culture - Final, Complete NO GROWTH AFTER 5 DAYS 10/20/16 Blood Culture - Final, Complete NO GROWTH AFTER 5 DAYS DAVEY CANCINO PA-C Oct 27, 2016 11:57 SHAYY CRUZ MD Oct 27, 2016 17:02
[2016-10-27 14:00] VITALS: BP 160/72
[2016-10-27] MEDS ORDERED: MAGNESIUM CITRATE 300 ML BTL PO ONE (17:00)
[2016-10-27 18:00] VITALS: BP 144/66
[2016-10-27 20:55] VITALS: BP 158/74
[2016-10-27] MEDS: VANCOMYCIN HCL 1,000 MG, VIAL MATE ADAPTER 1 EACH in D5W 250 ML IV SCH (22:31)
[2016-10-28 02:00] VITALS: BP 147/70
[2016-10-28] MEDS: MEROPENEM INJ 1 GM in D5W MINI-BAG PLUS 100 ML IV SCH (05:32)
[2016-10-28] MEDS: LEVOTHYROXINE 0.05 MG TAB (50 MCG) PO SCH (05:32)
[2016-10-28] MEDS: SLF 3 ML SYR IV SCH ×3 (05:33→20:34)
[2016-10-28 05:40] VITALS: BP 144/66
[2016-10-28] MEDS: IPRATROPIUM 0.5MG/ALBUTEROL 2.5MG INH SOL UD 3ML (DUONEB)(J7620) NEB SCH ×4 (07:18→19:21)
[2016-10-28] MEDS: ASPIRIN 81 MG ENTERIC TAB PO SCH (08:12)
[2016-10-28] MEDS: METOPROLOL TART 25 MG TABLET PO SCH ×2 (08:12→20:33)
[2016-10-28] MEDS: FUROSEMIDE 80 MG TAB PO SCH ×2 (08:13→17:10)
[2016-10-28] MEDS: ENOXAPARIN 30 MG/0.3 ML SYR (J1650) SC SCH (08:13)
[2016-10-28] MEDS: SENOKOT S TAB PO SCH ×2 (08:13→20:31)
[2016-10-28] MEDS: FLECAINIDE 50MG TABLET PO SCH ×2 (08:13→20:31)
[2016-10-28] MEDS: HumaLOG INSULIN (NovoLOG) PER UNIT SC SCH ×4 (08:14→20:33)
[2016-10-28] MEDS: PANTOPRAZOLE 40MG INJ (PROTONIX) (C9113) IV SCH (08:14)
[2016-10-28] MEDS: NYSTATIN 100,000 UNITS/GM TOPICAL PWD 15 GM TOP SCH ×2 (08:17→20:33)
[2016-10-28] MEDS: FLUTICASONE PROP 0.05% NASAL SPRAY 16 GM (FLONASE) SCH ×2 (08:19→20:33)
[2016-10-28 10:00] VITALS: BP 145/68
[2016-10-28 20:00] VITALS: BP 154/60
[2016-10-29] MEDS: LEVOTHYROXINE 0.05 MG TAB (50 MCG) PO SCH (05:47)
[2016-10-29] MEDS: SLF 3 ML SYR IV SCH ×3 (05:47→21:04)
[2016-10-29 06:09] LABS: MEAN CORPUSCULAR HEMOGLOBIN 32.1 pg (27.0-33.0); MEAN CORPUSCULAR HGB CONC 31.2 g/dl (32.0-36.5); RED CELL DISTRIBUTION WIDTH 14.9 % (11.5-14.5); WHITE BLOOD COUNT 9.5 K/mm3 (4.0-10.0)
[2016-10-29 06:15] VITALS: BP 168/89
[2016-10-29] MEDS: IPRATROPIUM 0.5MG/ALBUTEROL 2.5MG INH SOL UD 3ML (DUONEB)(J7620) NEB SCH ×4 (07:09→19:36)
[2016-10-29] MEDS: HumaLOG INSULIN (NovoLOG) PER UNIT SC SCH ×4 (08:19→20:32)
[2016-10-29] MEDS: ASPIRIN 81 MG ENTERIC TAB PO SCH (08:20)
[2016-10-29] MEDS: PANTOPRAZOLE 40MG INJ (PROTONIX) (C9113) IV SCH ×2 (08:20→08:29)
[2016-10-29] MEDS: SENOKOT S TAB PO SCH ×2 (08:20→21:02)
[2016-10-29] MEDS: FLECAINIDE 50MG TABLET PO SCH ×2 (08:20→21:03)
[2016-10-29] MEDS: ENOXAPARIN 30 MG/0.3 ML SYR (J1650) SC SCH (08:20)
[2016-10-29] MEDS: FUROSEMIDE 80 MG TAB PO SCH ×2 (08:21→17:11)
[2016-10-29] MEDS: FLUTICASONE PROP 0.05% NASAL SPRAY 16 GM (FLONASE) SCH ×2 (08:21→21:04)
[2016-10-29] MEDS: METOPROLOL TART 25 MG TABLET PO SCH ×2 (08:21→21:03)
[2016-10-29] MEDS: NYSTATIN 100,000 UNITS/GM TOPICAL PWD 15 GM TOP SCH ×2 (08:22→21:04)
[2016-10-29 09:05] VITALS: BP 168/72
[2016-10-29] MEDS: PANTOPRAZOLE 40MG TAB (PROTONIX) PO SCH (11:40)
[2016-10-29 20:00] VITALS: BP 141/63
[2016-10-30 05:40] VITALS: BP 138/82
[2016-10-30] MEDS: LEVOTHYROXINE 0.05 MG TAB (50 MCG) PO SCH (05:40)
[2016-10-30] MEDS: SLF 3 ML SYR IV SCH ×3 (05:40→22:00)
[2016-10-30] MEDS: IPRATROPIUM 0.5MG/ALBUTEROL 2.5MG INH SOL UD 3ML (DUONEB)(J7620) NEB SCH ×4 (07:13→19:21)
[2016-10-30] MEDS: HumaLOG INSULIN (NovoLOG) PER UNIT SC SCH ×4 (08:49→21:00)
[2016-10-30] MEDS: ASPIRIN 81 MG ENTERIC TAB PO SCH (08:49)
[2016-10-30] MEDS: METOPROLOL TART 25 MG TABLET PO SCH ×2 (08:50→21:00)
[2016-10-30] MEDS: FUROSEMIDE 80 MG TAB PO SCH ×2 (08:50→17:34)
[2016-10-30] MEDS: SENOKOT S TAB PO SCH ×2 (08:50→21:00)
[2016-10-30] MEDS: PANTOPRAZOLE 40MG TAB (PROTONIX) PO SCH (08:50)
[2016-10-30] MEDS: FLUTICASONE PROP 0.05% NASAL SPRAY 16 GM (FLONASE) SCH ×2 (08:51→21:00)
[2016-10-30] MEDS: ENOXAPARIN 30 MG/0.3 ML SYR (J1650) SC SCH (08:51)
[2016-10-30] MEDS: FLECAINIDE 50MG TABLET PO SCH ×2 (08:51→21:00)
[2016-10-30] MEDS: NYSTATIN 100,000 UNITS/GM TOPICAL PWD 15 GM TOP SCH ×2 (08:51→21:00)
[2016-10-30 22:00] VITALS: BP 131/61
[2016-10-31] MEDS: LEVOTHYROXINE 0.05 MG TAB (50 MCG) PO SCH (05:40)
[2016-10-31] MEDS: SLF 3 ML SYR IV SCH (05:40)
[2016-10-31 06:00] VITALS: BP 156/58
[2016-10-31] MEDS: IPRATROPIUM 0.5MG/ALBUTEROL 2.5MG INH SOL UD 3ML (DUONEB)(J7620) NEB SCH (07:21)
--- NOTE | 2016-10-31 08:11 | DSES ---
DATE OF ADMISSION: 10/20/2016 DATE OF DISCHARGE: 10/28/2016 PRIVATE CARE PHYSICIAN: Dr. Levine. HISTORY: This is an 81-year-old patient, resident at [facility] who lives with her who presented to [facility] Emergency room with increasing shortness of breath. She was admitted to the hospital for such. She ultimately developed acute hypercarbic hypoxic respiratory failure resulting in a rapid assessment team being called, resulting in transfer into the intensive care unit (ICU) and consultation by Dr. Parker. She also was noted to have hypertension at that time and resulted in placement of a triple lumen catheter. As a result of rapid assessment she did require intubation. Trial extubation was performed after discussion with her family and health care proxies in terms of what the patient's wishes would be. They felt as though she would not want further aggressive measures and would decline reintubation or cardiopulmonary resuscitation and therefore a DO NOT RESUSCITATE order was issued. Acute respiratory failure resulted likely to be secondary to congestive heart failure. She was on intravenous (IV) Lasix for this. She was also on antibiotics for cellulitis of the right second dorsal toe wound. She was successfully transitioned to oral Lasix on October 26. She has been on a low sodium diet, a 1500 mL fluid restriction which she is tolerating well. We did recommend wrapping her legs although she had refused this during her hospitalizations thus far. In terms of the cellulitis, she did have a chest x-ray of the wound which was unremarkable. She completed a course of ten days of IV Meropenem and vancomycin and had improvement in the erythema associated with her right toe wound. She was seen by wound care who did not recommend any additional involvement. This wound would need to be monitored in the outpatient setting. She does have a history of atrial fibrillation with Lopressor for rate control. She has been on a sliding scar insulin for diabetes. DISCHARGE DIAGNOSES: 1. Acute on chronic diastolic congestive heart failure. 2. Acute respiratory failure. 3. Acute hypercarbic hypoxic respiratory failure. 4. Acute renal failure. 5. Lactic acidosis. 6. Hyperkalemia. 7. Anemia of chronic disease. 8. Diabetes mellitus type 2. 9. Morbid obesity. 10. Hypothyroidism. Discharge medications and plan will be summarized at the time of discharge from the hospital.
[2016-10-31] MEDS: NYSTATIN 100,000 UNITS/GM TOPICAL PWD 15 GM TOP SCH (09:00)
[2016-10-31] MEDS: FLUTICASONE PROP 0.05% NASAL SPRAY 16 GM (FLONASE) SCH (09:00)
[2016-10-31 09:03] VITALS: BP 156/58
[2016-10-31] MEDS: PANTOPRAZOLE 40MG TAB (PROTONIX) PO SCH (09:03)
[2016-10-31] MEDS: ENOXAPARIN 30 MG/0.3 ML SYR (J1650) SC SCH (09:03)
[2016-10-31] MEDS: METOPROLOL TART 25 MG TABLET PO SCH (09:03)
[2016-10-31] MEDS: FUROSEMIDE 80 MG TAB PO SCH (09:03)
[2016-10-31] MEDS: FLECAINIDE 50MG TABLET PO SCH (09:03)
[2016-10-31] MEDS: ASPIRIN 81 MG ENTERIC TAB PO SCH (09:03)
[2016-10-31] MEDS: SENOKOT S TAB PO SCH (09:03)
[2016-10-31] MEDS: HumaLOG INSULIN (NovoLOG) PER UNIT SC SCH (09:05)
[2016-10-31] MEDS ORDERED: FURO1TAB15 PO (09:30)
--- NOTE | 2016-11-01 08:39 | DSES ---
DATE OF ADMISSION: 10/20/2016 DATE OF DISCHARGE: 10/31/2016 ADDENDUM: The patient was transferred to assisted facility (SNF) status on 10/28/2016. She has an uneventful hospitalization since. She did develop some complaints of a mildly tender lump to the left wrist anteriorly over the last week or so. X-ray has been ordered to be completed as an outpatient. PHYSICAL EXAMINATION: Blood pressure is stable today at 156/58. She has a heart rate of 82. Oxygen saturation 92% on 1 liter nasal cannula. The patient was unable to be weaned over the last several days and has maintained in the 90% range on 1 liter nasal cannula. CARDIOVASCULAR: Heart rate and rhythm are regular. PULMONARY: Lungs are clear to auscultation bilaterally. MEDICATIONS: At discharge include: - furosemide 80 mg one by mouth twice a day - acetaminophen 325 mg tablets, she may take two by mouth every 4 hours as needed for fever or pain - albuterol two puffs every 4 hours as needed for shortness of breath - allopurinol 300 mg by mouth daily - aspirin 81 mg daily - atorvastatin 10 mg daily - diltiazem 120 mg by mouth twice a day - duloxetine 30 mg by mouth twice a day - fexofenadine 60 mg twice a day - flecainide 50 mg by mouth twice a day - isosorbide mononitrate 50 mg by mouth daily - KlorCon 10 mEq capsule 20 mEq by mouth daily - levothyroxine 50 mcg by mouth daily - Lisinopril 20 mg by mouth daily - metoprolol tartrate 25 mg by mouth twice a day - ranitidine 150 mg by mouth twice a day - Refresh eye drops OU as needed for dry eyes The patient is discharged in stable and satisfactory condition with no further questions at the time of discharge.
== END 2016-10-31 11:20 | DRG 291 ==
LOC: M PCU 12:28 → M ICU 18:05 → M PCU 10-21 15:35 → M MSPAV 10-25 14:40
PROVIDERS: ADMIT Family Medicine; ATTEND Family Medicine
PROC: 02HV33Z Insertion of Infusion Device into Superior Vena Cava, Percutaneous Approach (ICD-10-PCS; principal; 2016-10-20)
PROC: 5A1945Z Respiratory Ventilation, 24-96 Consecutive Hours (ICD-10-PCS; 2016-10-20)
DX: I11.0 Hypertensive heart disease with heart failure (principal); J96.02 Acute respiratory failure with hypercapnia; J96.01 Acute respiratory failure with hypoxia; J18.9 Pneumonia, unspecified organism; E87.2 Acidosis; L03.115 Cellulitis of right lower limb; L03.116 Cellulitis of left lower limb; N17.9 Acute kidney failure, unspecified; Z66 Do not resuscitate; I50.33 Acute on chronic diastolic (congestive) heart failure; E66.01 Morbid (severe) obesity due to excess calories; E87.5 Hyperkalemia; D63.1 Anemia in chronic kidney disease; E11.9 Type 2 diabetes mellitus without complications; E03.9 Hypothyroidism, unspecified; E88.09 Other disorders of plasma-protein metabolism, not elsewhere classified; G47.33 Obstructive sleep apnea (adult) (pediatric); I87.2 Venous insufficiency (chronic) (peripheral); I48.0 Paroxysmal atrial fibrillation; Z79.82 Long term (current) use of aspirin; Z79.899 Other long term (current) drug therapy; Z91.19 Patient's noncompliance with other medical treatment and regimen

== ENCOUNTER → 2016-11-01 | Outpatient (REF) ==
[~2016-11-01] MED LIST changes: +ALBU17IN INH; +ALLE60TA69 PO; +DILT120C PO; +DULO1CAP2 PO; +FURO1TAB15 PO; +ISOS60TA2 PO; +KLOR1CAP2 PO; +OPTI0.5D5 OU
--- NOTE | 2016-11-01 16:12 | REP ---
AP LATERAL LEFT WRIST: 11/01/2016. Clinical history: Left wrist pain, palpable lump dorsally. Two views of the wrist were provided with no prior studies. The study was done portably in [place] and lateral projections. The lateral view has a steep obliquity that is not a true lateral. There is a dorsal area of soft tissue swelling centered over the radiocarpal joint and distal ulna. I do not see subjacent fracture of the distal radius or ulna nor any of the carpal bones. There are degenerative changes at the distal radioulnar joint. There are significant degenerative changes at the first CMC joint as well as the MCP and IP joints of the thumb. Other MCP joints show lesser degenerative changes. The bones are demineralized but without displaced fractures for the metacarpals. The phalanges show demineralization and degenerative changes of their IP joints as visualized on this study. Impression: 1. Prominent soft tissue swelling focally over the dorsal aspect of the wrist at the radiocarpal articulation. Whether this is a subcutaneous hematoma, cyst or other soft tissue mass is uncertain. There is no bony destructive change deep to this and there are degenerative changes at the joints described as well as demineralization. An ultrasound might prove helpful to define a possible fluid filled or cystic lesion. Signed by Evangelista Manuel MD 11/01/2016 05:18 P
== END ==
DX: M25.532 Pain in left wrist (principal); R93.7 Abnormal findings on diagnostic imaging of other parts of musculoskeletal system

== ENCOUNTER → 2016-11-02 | Outpatient (REF) ==
[2016-11-02 12:52] LABS: MEAN CORPUSCULAR HEMOGLOBIN 33.4 pg (27.0-33.0); MEAN CORPUSCULAR HGB CONC 32.1 g/dl (32.0-36.5); MEAN CORPUSCULAR VOLUME 104.2 fl (80.0-96.0); WHITE BLOOD COUNT 10.5 K/mm3 (4.0-10.0)
[2016-11-02 13:12] LABS: CALCIUM LEVEL 8.9 MG/DL (8.8-10.2); CREATININE FOR GFR 2.16 MG/DL (0.55-1.02); GLOMERULAR FILTRATION RATE 23.2 (>32); POTASSIUM SERUM 4.2 MEQ/L (3.5-5.1)
== END ==
DX: I50.9 Heart failure, unspecified (principal)

== ENCOUNTER → 2016-11-04 | Outpatient (CLI) | payer MEDICARE ==
--- NOTE | 2016-11-04 12:33 | REP ---
LEFT WRIST ULTRASOUND: HISTORY: Cyst on the wrist. Lump appeared on the wrist 2 days after a fall. Comparison radiographs November 01, 2016. FINDINGS: Scanning over the palpable lump demonstrates a complex hypoechoic area measuring 2.5 x 2.6 x 0.7 cm. This is compatible with proteinaceous fluid within a cystic area such as hematoma or ganglion cyst. This appears to be slightly compressible. Appears to be superficial to the extensor tendons. Signed by Richie Gibson MD 11/04/2016 02:04 P
== END ==
LOC: M RAD 11:09
PROVIDERS: ATTEND Physician Assistant
DX: R22.32 Localized swelling, mass and lump, left upper limb (principal)

== ENCOUNTER → 2016-11-08 | Outpatient (REF) ==
[2016-11-08 09:35] LABS: MEAN CORPUSCULAR HEMOGLOBIN 33.6 pg (27.0-33.0); MEAN CORPUSCULAR HGB CONC 32.3 g/dl (32.0-36.5); MEAN CORPUSCULAR VOLUME 104.2 fl (80.0-96.0); RED CELL DISTRIBUTION WIDTH 14.9 % (11.5-14.5); WHITE BLOOD COUNT 8.8 K/mm3 (4.0-10.0)
[2016-11-08 10:12] LABS: CALCIUM LEVEL 9.5 MG/DL (8.8-10.2); CREATININE FOR GFR 1.67 MG/DL (0.55-1.02); GLOMERULAR FILTRATION RATE 31.2 (>32); POTASSIUM SERUM 4.4 MEQ/L (3.5-5.1)
== END ==
DX: I50.9 Heart failure, unspecified (principal)

== ENCOUNTER → 2016-11-15 | Outpatient (REF) ==
[2016-11-15 10:05] LABS: MEAN CORPUSCULAR HEMOGLOBIN 32.7 pg (27.0-33.0); MEAN CORPUSCULAR HGB CONC 31.7 g/dl (32.0-36.5); MEAN CORPUSCULAR VOLUME 102.9 fl (80.0-96.0); RED CELL DISTRIBUTION WIDTH 14.4 % (11.5-14.5); WHITE BLOOD COUNT 10.6 K/mm3 (4.0-10.0)
[2016-11-15 10:10] LABS: CALCIUM LEVEL 9.3 MG/DL (8.8-10.2); CREATININE FOR GFR 1.78 MG/DL (0.55-1.02); POTASSIUM SERUM 4.1 MEQ/L (3.5-5.1)
== END ==
DX: I50.9 Heart failure, unspecified (principal)

== ENCOUNTER → 2016-11-29 | Outpatient (REF) ==
[~2016-11-29] MED LIST changes: -COLA100C PO; +COLA100C3 PO
[2016-11-29 11:31] LABS: MEAN CORPUSCULAR HEMOGLOBIN 32.6 pg (27.0-33.0); MEAN CORPUSCULAR HGB CONC 31.7 g/dl (32.0-36.5); MEAN CORPUSCULAR VOLUME 102.7 fl (80.0-96.0); RED CELL DISTRIBUTION WIDTH 15.1 % (11.5-14.5); WHITE BLOOD COUNT 9.4 K/mm3 (4.0-10.0)
[2016-11-29 12:00] LABS: CALCIUM LEVEL 9.2 MG/DL (8.8-10.2); CREATININE FOR GFR 1.54 MG/DL (0.55-1.02); GLOMERULAR FILTRATION RATE 34.2 (>32); POTASSIUM SERUM 3.9 MEQ/L (3.5-5.1)
== END ==
DX: I50.9 Heart failure, unspecified (principal)

== ENCOUNTER → 2016-12-27 | Outpatient (REF) | payer MEDICARE ==
[2016-12-27 12:27] LABS: MEAN CORPUSCULAR HEMOGLOBIN 33.6 pg (27.0-33.0); MEAN CORPUSCULAR HGB CONC 32.8 g/dl (32.0-36.5); MEAN CORPUSCULAR VOLUME 102.5 fl (80.0-96.0); RED CELL DISTRIBUTION WIDTH 15.1 % (11.5-14.5); WHITE BLOOD COUNT 10.9 K/mm3 (4.0-10.0)
[2016-12-27 12:42] LABS: CALCIUM LEVEL 9.3 MG/DL (8.8-10.2); CREATININE FOR GFR 1.53 MG/DL (0.55-1.02); GLOMERULAR FILTRATION RATE 34.5 (>32); POTASSIUM SERUM 3.9 MEQ/L (3.5-5.1)
== END ==
DX: E03.9 Hypothyroidism, unspecified (principal)

== ENCOUNTER → 2017-01-09 | Day surgery (SDC) | payer MEDICARE ==
[~2017-01-09] VITALS: Ht 162.6 cm; Wt 108.9 kg
[~2017-01-09] MED LIST changes: +ACETAMINOPHEN 325 MG TAB PO PRN; +AcetaZOLAMIDE 500 MG ER CAP PO ONE; +BSS with VANC/TOB/EPI for EYE CASES IR ONE; +CYCLOPENTOLATE 2% OPHTH SOLN 2ML BTL As Ordered ONE; +CYCLOPENTOLATE 2% OPHTH SOLN 2ML BTL OD ONE; +D5W/0.2% SODIUM CHLORIDE 250 ML IV ONE; +DULC10SU2 PR; +HEALON DUET (HEALON 10MG/ML 0.55ML & HEALON ENDOCOAT 30MG/ML 0.85ML) As Ordered ONE; +KETOROLAC 0.5% OPHTH SOLN XX ONE; +LIDOCAINE 1% SDV 5 ML VIAL As Ordered ONE; +LIDOCAINE 4% INJ 5 ML AMP OU ONE; +MIDAZOLAM INJ 2 MG/2 ML VIAL (J2250) As Ordered ONE; +MILKSUS PO; +MOXIFLOXACIN IN BSS 0.25MG/0.25ML INTRACAMERAL INJ (OR EYE ONLY)(J2280) As Ordered ONE; +MULTLIQ PO; +OFLOXACIN 0.3 % (OCUFLOX) OPTH SOL 5ML As Ordered ONE; +OFLOXACIN 0.3 % (OCUFLOX) OPTH SOL 5ML OD ONE; +PHENYLEPHRINE 2.5% OPHTH SOL 2ML As Ordered ONE; +PHENYLEPHRINE 2.5% OPHTH SOL 2ML OD ONE; +POVIDONE-IODINE 5% OPHTH PREP SOL 30ML As Ordered ONE; +PROPARACAINE 0.5% OPHTH SOL 15ML XX PRN; +TOBR0.3S; +TRIAMCINOLONE PRES FR 40 MG/ML 1ML(TRIESENCE)(OR EYE ONLY)(J3300 PER 1MG) As Ordered ONE; +TRIMETHOBENZAMIDE 300 MG CAP PO PRN; +TROPICAMIDE 1% OPHTH SOLN 2ML As Ordered ONE; +TROPICAMIDE 1% OPHTH SOLN 2ML OD ONE; +fentaNYL 100 MCG/2 ML INJECTION (J3010) As Ordered ONE; +ketorolac OD
[2017-01-09 11:20] VITALS: BP 145/64
== END | disposition home or self-care (01) ==
LOC: M SDC 08:42
PROVIDERS: ATTEND Ophthalmology
DX: H26.9 Unspecified cataract (principal); I48.91 Unspecified atrial fibrillation; I10 Essential (primary) hypertension; I50.9 Heart failure, unspecified; E11.9 Type 2 diabetes mellitus without complications; Z79.899 Other long term (current) drug therapy; E03.9 Hypothyroidism, unspecified; M10.9 Gout, unspecified; Z99.81 Dependence on supplemental oxygen; Z87.891 Personal history of nicotine dependence; J84.10 Pulmonary fibrosis, unspecified
CPT/HCPCS: 66984; 67515; J2250; J2280; J3010; J3300; V2632

== ENCOUNTER → 2017-01-17 | Day surgery (SDC) | payer MEDICARE ==
[~2017-01-17] VITALS: Ht 162.6 cm; Wt 109.0 kg
[~2017-01-17] MED LIST changes: -CYCLOPENTOLATE 2% OPHTH SOLN 2ML BTL OD ONE; +CYCLOPENTOLATE 2% OPHTH SOLN 2ML BTL OS ONE; +D5W/0.2% SODIUM CHLORIDE 1,000 ML ONE; +KETOROLAC 0.5% OPHTH SOLN OS ONE; -KETOROLAC 0.5% OPHTH SOLN XX ONE; -OFLOXACIN 0.3 % (OCUFLOX) OPTH SOL 5ML OD ONE; +OFLOXACIN 0.3 % (OCUFLOX) OPTH SOL 5ML OS ONE; -PHENYLEPHRINE 2.5% OPHTH SOL 2ML OD ONE; +PHENYLEPHRINE 2.5% OPHTH SOL 2ML OS ONE; +PROPARACAINE 0.5% OPHTH SOL 15ML OS PRN; -PROPARACAINE 0.5% OPHTH SOL 15ML XX PRN; -TROPICAMIDE 1% OPHTH SOLN 2ML OD ONE; +TROPICAMIDE 1% OPHTH SOLN 2ML OS ONE
[2017-01-17 12:53] VITALS: BP 112/53
--- NOTE | 2017-01-17 19:25 | RO ---
DATE OF PROCEDURE: 01/17/2017 PREOPERATIVE DIAGNOSES: Cataract left eye. Miosis left eye. POSTOPERATIVE DIAGNOSES: Cataract left eye. Miosis left eye. PROCEDURE: Phacoemulsification with intraocular lens implantation of PCB00, 22.5 diopters, and placement of the Malyugin ring, 7 mm in the right eye. SURGEON: Mendy Treviño MD NAIL SPECIALIST: None. ANESTHESIA: Local intravenous (IV) standby. COMPLICATION: None. DESCRIPTION OF PROCEDURE: Patient was brought to the operating room and laid in supine position. The eye was prepped and draped in a sterile fashion for ophthalmic surgery, and a lid speculum was placed. Following which the Side[place] incision was then made, and EndoCoat was injected into the anterior chamber. Temporal clear corneal incision was then made with a 2.5 mm keratome, followed by capsulorrhexis. Prior to capsulorrhexis, because of the small pupil Malyugin ring 7 mm was placed in the anterior chamber to dilate the pupil. After the capsulorrhexis was done eye resection was carried out followed by phacoemulsification of the capsule in a [id number] method under the dense settings. Excess cortical material was then aspirated with irrigation and aspiration cannula. Viscoelastic was then placed into the capsular bag. An intraocular lens PCB00 21 diopter was then put in the bag. Excess viscoelastic was aspirated. Wound was hydrated. Intracameral moxifloxacin was given followed by sub-Tenon Kenalog injection. Lid speculum removed and patient returned to recovery room in stable condition.
== END | disposition home or self-care (01) ==
LOC: M SDC 08:20
PROVIDERS: ATTEND Ophthalmology
DX: H26.9 Unspecified cataract (principal); H21.562 Pupillary abnormality, left eye; H57.03 Miosis; I48.91 Unspecified atrial fibrillation; I50.9 Heart failure, unspecified; I10 Essential (primary) hypertension; E78.5 Hyperlipidemia, unspecified; E11.9 Type 2 diabetes mellitus without complications; E03.9 Hypothyroidism, unspecified; J84.10 Pulmonary fibrosis, unspecified; M10.9 Gout, unspecified; Z99.81 Dependence on supplemental oxygen; Z79.899 Other long term (current) drug therapy; G47.30 Sleep apnea, unspecified
CPT/HCPCS: 66982; J2250; J2280; J3010; J3300; V2632

== ENCOUNTER → 2017-02-01 | Outpatient (REF) ==
[~2017-02-01] MED LIST changes: -ACETAMINOPHEN 325 MG TAB PO PRN; -AcetaZOLAMIDE 500 MG ER CAP PO ONE; -BSS with VANC/TOB/EPI for EYE CASES IR ONE; -CYCLOPENTOLATE 2% OPHTH SOLN 2ML BTL As Ordered ONE; -CYCLOPENTOLATE 2% OPHTH SOLN 2ML BTL OS ONE; -D5W/0.2% SODIUM CHLORIDE 1,000 ML ONE; -D5W/0.2% SODIUM CHLORIDE 250 ML IV ONE; -HEALON DUET (HEALON 10MG/ML 0.55ML & HEALON ENDOCOAT 30MG/ML 0.85ML) As Ordered ONE; -KETOROLAC 0.5% OPHTH SOLN OS ONE; -LIDOCAINE 1% SDV 5 ML VIAL As Ordered ONE; -LIDOCAINE 4% INJ 5 ML AMP OU ONE; -MIDAZOLAM INJ 2 MG/2 ML VIAL (J2250) As Ordered ONE; -MOXIFLOXACIN IN BSS 0.25MG/0.25ML INTRACAMERAL INJ (OR EYE ONLY)(J2280) As Ordered ONE; -OFLOXACIN 0.3 % (OCUFLOX) OPTH SOL 5ML As Ordered ONE; -OFLOXACIN 0.3 % (OCUFLOX) OPTH SOL 5ML OS ONE; -PHENYLEPHRINE 2.5% OPHTH SOL 2ML As Ordered ONE; -PHENYLEPHRINE 2.5% OPHTH SOL 2ML OS ONE; -POVIDONE-IODINE 5% OPHTH PREP SOL 30ML As Ordered ONE; -PROPARACAINE 0.5% OPHTH SOL 15ML OS PRN; -TRIAMCINOLONE PRES FR 40 MG/ML 1ML(TRIESENCE)(OR EYE ONLY)(J3300 PER 1MG) As Ordered ONE; -TRIMETHOBENZAMIDE 300 MG CAP PO PRN; -TROPICAMIDE 1% OPHTH SOLN 2ML As Ordered ONE; -TROPICAMIDE 1% OPHTH SOLN 2ML OS ONE; -fentaNYL 100 MCG/2 ML INJECTION (J3010) As Ordered ONE
[2017-02-01 11:11] LABS: MEAN CORPUSCULAR HEMOGLOBIN 33.4 pg (27.0-33.0); MEAN CORPUSCULAR HGB CONC 32.9 g/dl (32.0-36.5); MEAN CORPUSCULAR VOLUME 101.7 fl (80.0-96.0); RED CELL DISTRIBUTION WIDTH 15.2 % (11.5-14.5); WHITE BLOOD COUNT 9.8 K/mm3 (4.0-10.0)
[2017-02-01 11:36] LABS: CALCIUM LEVEL 9.3 MG/DL (8.8-10.2); CREATININE FOR GFR 2.43 MG/DL (0.55-1.02); GLOMERULAR FILTRATION RATE 20.2 (>32)
[2017-02-01 11:39] LABS: POTASSIUM SERUM 5.3 MEQ/L (3.5-5.1)
== END ==
DX: I50.9 Heart failure, unspecified (principal)

== ENCOUNTER → 2017-02-03 | Outpatient (REF) ==
[2017-02-03 11:01] LABS: CREATININE FOR GFR 2.46 MG/DL (0.55-1.02); GLOMERULAR FILTRATION RATE 19.9 (>32); POTASSIUM SERUM 4.6 MEQ/L (3.5-5.1)
== END ==
PROVIDERS: ATTEND Internal Medicine
DX: E87.5 Hyperkalemia (principal)

== ENCOUNTER → 2017-02-07 | Outpatient (REF) ==
[2017-02-07 15:02] LABS: CALCIUM LEVEL 8.9 MG/DL (8.8-10.2); CREATININE FOR GFR 1.58 MG/DL (0.55-1.02); GLOMERULAR FILTRATION RATE 33.2 (>32)
[2017-02-07 15:04] LABS: POTASSIUM SERUM 5.2 MEQ/L (3.5-5.1)
== END ==
PROVIDERS: ATTEND Internal Medicine
DX: N18.9 Chronic kidney disease, unspecified (principal)

== ENCOUNTER → 2017-02-28 | Outpatient (REF) ==
[~2017-02-28] MED LIST changes: +ANBEEL MT; -COLA100C3 PO; +COLA100C5 PO; -FURO1TAB15 PO; +FURO80TA2 PO; +LEVO500T3 PO; -LEVO500T32 PO; +METO25TA4 PO; -MUCI600T34 PO; +MUCI600T37 PO; -VITA100037 PO; +VITA100067 PO
[2017-02-28 11:52] LABS: MEAN CORPUSCULAR HEMOGLOBIN 33.1 pg (27.0-33.0); MEAN CORPUSCULAR HGB CONC 32.4 g/dl (32.0-36.5); MEAN CORPUSCULAR VOLUME 102.3 fl (80.0-96.0); RED CELL DISTRIBUTION WIDTH 15.5 % (11.5-14.5); WHITE BLOOD COUNT 7.2 K/mm3 (4.0-10.0)
[2017-02-28 13:19] LABS: CALCIUM LEVEL 8.8 MG/DL (8.8-10.2); CREATININE FOR GFR 1.11 MG/DL (0.55-1.02); GLOMERULAR FILTRATION RATE 49.9 (>32); POTASSIUM SERUM 4.2 MEQ/L (3.5-5.1)
== END ==
DX: I50.9 Heart failure, unspecified (principal)

== ENCOUNTER → 2017-03-05 | Outpatient (CLI) | payer MEDICARE | PROVIDERS: ATTEND Internal Medicine | DX: R30.0 Dysuria (principal) ==

== ENCOUNTER → 2017-03-28 | Outpatient (REF) ==
[2017-03-28 10:55] LABS: MEAN CORPUSCULAR HEMOGLOBIN 34.2 pg (27.0-33.0); MEAN CORPUSCULAR HGB CONC 33.4 g/dl (32.0-36.5); MEAN CORPUSCULAR VOLUME 102.4 fl (80.0-96.0); RED CELL DISTRIBUTION WIDTH 15.8 % (11.5-14.5); WHITE BLOOD COUNT 10.4 K/mm3 (4.0-10.0)
[2017-03-28 11:12] LABS: CALCIUM LEVEL 9.4 MG/DL (8.8-10.2); CREATININE FOR GFR 1.13 MG/DL (0.55-1.02); GLOMERULAR FILTRATION RATE 48.8 (>32); POTASSIUM SERUM 3.9 MEQ/L (3.5-5.1)
== END ==
DX: I50.9 Heart failure, unspecified (principal)

== ENCOUNTER 2017-03-29 05:42 | Day surgery (SDC) | payer MEDICARE ==
[~2017-03-29] VITALS: Ht 162.6 cm; Wt 105.4 kg
[2017-03-29] MEDS ORDERED: dexameTHASONE 4 MG/ML 1ML VIAL (J1100) IV ONE (06:00)
[2017-03-29] MEDS ORDERED: LR 1,000 ML IV ONE (06:00)
[2017-03-29] MEDS ORDERED: LIDOCAINE 1% MDV 20ML VIAL SQ ONE (06:00)
[2017-03-29] MEDS ORDERED: AMPICILLIN SOD/SULBACTAM SOD 3 GM in D5W MINI-BAG PLUS 100 ML IV ONE (06:00)
[2017-03-29] MEDS ORDERED: MEPIVACAINE HCL 3 % 1.7 ML DENTAL CARTRIDGE (CARBOCAINE) (J0670) As Ordered ONE (07:15)
[2017-03-29] MEDS ORDERED: LIDOCAINE 2% W/ EPINEPHRINE 1.7 ML DENTAL INJ As Ordered ONE (07:44)
[2017-03-29] MEDS ORDERED: MIDAZOLAM INJ 2 MG/2 ML VIAL (J2250) As Ordered ONE (07:50)
[2017-03-29] MEDS ORDERED: fentaNYL 100 MCG/2 ML INJECTION (J3010) As Ordered ONE (07:51)
[2017-03-29] MEDS ORDERED: LABETALOL HCL 100 MG/20 ML VIAL As Ordered ONE (07:53)
[2017-03-29] MEDS ORDERED: ONDANSETRON 4MG/2ML VIAL (J2405) As Ordered ONE (07:57)
[2017-03-29 08:45] VITALS: BP 151/67
--- NOTE | 2017-03-30 08:51 | RO ---
DATE OF PROCEDURE: 03/29/2017 PREOPERATIVE DIAGNOSIS: Impacted and symptomatic tooth #32. POSTOPERATIVE DIAGNOSIS: Status post impacted and symptomatic tooth #32. PROCEDURE PERFORMED: Surgical extraction of tooth #32. SURGEON: Raciel Aldana DMD, MD PACKAGE REINSPECTOR: None. ANESTHESIA: Monitored anesthesia care. ESTIMATED BLOOD LOSS: 10 CC SPECIMEN: Tooth for gross only. INDICATIONS FOR SURGERY: Mrs. Lawrence is a pleasant 82-year-old female who was referred to me by her dentist last year for evaluation of a symptomatic and impacted tooth #32. Per patient report, the tooth has been symptomatic for months and the patient feels like the tooth is pushing through her gums causing tongue and local gingival irrigation and she is unable to eat due to this pain and irritation as she reports. Her past medical history is significant for multiple comorbidities including obesity, obstructive sleep apnea, congestive heart failure, atrial fibrillation and diabetes mellitus. Clinical examination reveals horizontally impacted tooth #32 that is erupting lingually and has localized gingival erythema and small amount of exudate and purulence stemming from the sulcus with a small lateral posterior right border of the tongue ulcer that is adjacent to the erupting cusps of the tooth. The area is very tender to palpation with slight induration from the chronic irritation. Radiographic examination reveals #32 is horizontally impacted with no adjacent teeth next to it. All the risks, benefits and alternatives were explained to the patient for removing the tooth including having to perform this procedure in an operating room setting due to her physical habitus and past medical history as well as surgical risks such as postoperative infection, needing additional procedures and possible admission to the hospital. We also discussed inferior alveolar nerve positioning which is very close to the apices of the tooth and we discussed the risks of damage to the nerve which could be permanent. The patient elects to proceed with the procedure and informed consent was signed and as I mentioned was fully explained. The history and physical was updated and documented and in the patient's chart. She also has cardiac clearance from her sleeping car service attendant. DESCRIPTION OF PROCEDURE: On March 29, 2017, the patient presented to [facility]. I met the patient as well as the anesthesiologist. Any last minute questions were addressed at that point. The history and physical and the consent were updated and the patient was then taken back to the operating room. She was laid supine on the operating room table. Monitored anesthesia care was initiated with achievement of Verril sign and once this was achieved, she was draped in the usual sterile fashion. A time-out procedure was performed to identify the patient, the procedure and any other precautions. Preoperative antibiotics in the form of 3 grams of Unisom in the IV were given as well as 8 mg of Decadron. At this point, a small bite block was placed on the left side of her oral cavity followed by the administration of four carpules of 3% Carbocaine with no epinephrine and one carpule of 2% lidocaine with 1:100,000 epinephrine injected as inferior alveolar nerve blocks and local infiltration. Once local anesthetic was delivered, at this point a 15 blade was then used to make a full-thickness flap with a hockey stick buccal extension. Flap was fully dissected subperiosteally with full exposure of the distal and buccal facial cortices of the mandible adjacent to the impacted tooth. At this point, a Surgairtome was then used to create a mesial buccal and distal troughs all the way down to the furcation of the tooth. The tooth was noted not to luxate very easily as it is probably at this point ankylosed, therefore, the tooth was sectioned in numerous pieces buccolingually as well as mesiodistally. All the pieces were removed and at this point, a small 3-4 mm segment of the tooth apically was noted to be very ankylosed with no mobility whatsoever, therefore that segment of the tooth was drilled out with the Surgairtome. Inspection of the socket reveals that the tooth has been removed in total with no further segments of the tooth that were noted clinically. The lingual cortex was completely intact and the inferior alveolar nerve was not noted during the procedure. At this point, the wound was copiously irrigated and curetted and the wound edges were then reapproximated with #3-0 Vicryl sutures. Gauze hemostasis was achieved with ease and noted. At this point, the patient was awakened from her monitored anesthesia care and taken back to the postanesthesia care unit. COMPLICATIONS: None. ESTIMATED BLOOD LOSS: About 10 mL. DRAINS: There were no drains placed. [facility]
== END 2017-03-29 09:25 | disposition home or self-care (01) ==
LOC: M SDC 05:42
PROVIDERS: ATTEND Dentist
DX: K01.1 Impacted teeth (principal); I48.91 Unspecified atrial fibrillation; E11.9 Type 2 diabetes mellitus without complications; I50.20 Unspecified systolic (congestive) heart failure; Z79.82 Long term (current) use of aspirin; Z79.899 Other long term (current) drug therapy; Z99.81 Dependence on supplemental oxygen; E66.9 Obesity, unspecified; Z88.8 Allergy status to other drugs, medicaments and biological substances
CPT/HCPCS: 41899; 88300; J0670; J1100; J2250; J2405; J3010

== ENCOUNTER → 2017-05-03 | Outpatient (REF) | payer MEDICARE ==
[2017-05-03 10:04] LABS: MEAN CORPUSCULAR HEMOGLOBIN 33.6 pg (27.0-33.0); MEAN CORPUSCULAR VOLUME 101.7 fl (80.0-96.0); RED CELL DISTRIBUTION WIDTH 14.6 % (11.5-14.5); WHITE BLOOD COUNT 8.6 K/mm3 (4.0-10.0)
[2017-05-03 10:35] LABS: CALCIUM LEVEL 8.8 MG/DL (8.8-10.2); CREATININE FOR GFR 1.11 MG/DL (0.55-1.02); GLOMERULAR FILTRATION RATE 49.9 (>32)
== END ==
DX: E03.9 Hypothyroidism, unspecified (principal); Z79.899 Other long term (current) drug therapy

== ENCOUNTER → 2017-05-30 | Outpatient (REF) | payer MEDICARE ==
[2017-05-30 12:01] LABS: MEAN CORPUSCULAR HEMOGLOBIN 32.8 pg (27.0-33.0); MEAN CORPUSCULAR HGB CONC 32.5 g/dl (32.0-36.5); MEAN CORPUSCULAR VOLUME 100.9 fl (80.0-96.0); RED CELL DISTRIBUTION WIDTH 13.8 % (11.5-14.5); WHITE BLOOD COUNT 9.8 10^3/uL (4.0-10.0)
[2017-05-30 12:48] LABS: CALCIUM LEVEL 8.9 MG/DL (8.8-10.2); CREATININE FOR GFR 0.96 MG/DL (0.55-1.02); GLOMERULAR FILTRATION RATE 58.9 (>32); POTASSIUM SERUM 4.5 MEQ/L (3.5-5.1)
== END ==
DX: I50.9 Heart failure, unspecified (principal)

== ENCOUNTER → 2017-07-05 | Outpatient (REF) ==
[2017-07-05 11:15] LABS: MEAN CORPUSCULAR HEMOGLOBIN 32.6 pg (27.0-33.0); MEAN CORPUSCULAR HGB CONC 32.5 g/dl (32.0-36.5); MEAN CORPUSCULAR VOLUME 100.3 fl (80.0-96.0); PLATELET COUNT, AUTOMATED 272 10^3/uL (150-450); RED CELL DISTRIBUTION WIDTH 13.9 % (11.5-14.5); WHITE BLOOD COUNT 9.7 10^3/uL (4.0-10.0)
[2017-07-05 11:46] LABS: CALCIUM LEVEL 8.9 MG/DL (8.8-10.2); CREATININE FOR GFR 1.09 MG/DL (0.55-1.02); GLOMERULAR FILTRATION RATE 50.9 (>32); POTASSIUM SERUM 4.2 MEQ/L (3.5-5.1)
== END ==
DX: I50.9 Heart failure, unspecified (principal)

== ENCOUNTER → 2017-07-07 | Outpatient (REF) | PROVIDERS: ATTEND Internal Medicine | DX: G47.30 Sleep apnea, unspecified (principal) ==

== ENCOUNTER → 2017-09-27 | Outpatient (REF) | payer MEDICARE ==
[2017-09-27 13:30] LABS: BASO % 0.4 % (0.0-1.0); EOS # 0.6 10^3/uL (0.0-0.50); EOS % 5.4 % (0.0-3.0); HEMATOCRIT 35.8 % (36.0-47.0); HEMOGLOBIN 11.9 g/dl (12.0-16.0); IMMATURE GRANULOCYTE % 0.3 % (0-0); LYMPH % 28.3 % (24.0-44.0); MEAN CORPUSCULAR HEMOGLOBIN 32.8 pg (27.0-33.0); MEAN CORPUSCULAR HGB CONC 33.2 g/dl (32.0-36.5); MEAN CORPUSCULAR VOLUME 98.6 fl (80.0-96.0); MONO % 9.2 % (0.0-5.0); NEUTROPHILS # 5.9 10^3/uL (1.8-7.7); NEUTROPHILS % 56.4 % (36.0-66.0); PLATELET COUNT, AUTOMATED 258 10^3/uL (150-450); RED BLOOD COUNT 3.63 10^6/uL (4.00-5.40); RED CELL DISTRIBUTION WIDTH 14.6 % (11.5-14.5); WHITE BLOOD COUNT 10.4 10^3/uL (4.0-10.0)
[2017-09-27 13:49] LABS: ALBUMIN 3.6 GM/DL (3.2-5.2); ALBUMIN/GLOBULIN RATIO 1.09 (1.00-1.93); ALKALINE PHOSPHATASE 83 U/L (45-117); ALT/SGPT 18 U/L (12-78); ANION GAP 7 MEQ/L (8-16); AST/SGOT 24 U/L (7-37); BILIRUBIN,TOTAL 0.3 MG/DL (0.2-1.0); BLOOD UREA NITROGEN 28 MG/DL (7-18); CARBON DIOXIDE LEVEL 27 MEQ/L (21-32); CHLORIDE LEVEL 106 MEQ/L (98-107); CREATININE FOR GFR 1.07 MG/DL (0.55-1.30); FERRITIN 92 NG/ML (8-252); FREE T4 0.84 NG/DL (0.76-1.46); GLUCOSE, FASTING 78 MG/DL (70-100); IRON (FE) 74 UG/DL (50-170); PERCENT SATURATION 25.9 % (13.2-45.0); POTASSIUM SERUM 4.3 MEQ/L (3.5-5.1); SODIUM LEVEL 140 MEQ/L (136-145); TOTAL IRON BINDING CAPACITY 286 UG/DL (250-450); TOTAL PROTEIN 6.9 GM/DL (6.4-8.2)
[2017-09-27 13:55] LABS: TOTAL 25(OH) VITAMIN D 27.2 NG/ML (30.0-100.0)
[2017-09-27 14:19] LABS: FOLATE > 24.0 NG/ML
[2017-09-27 14:20] LABS: VITAMIN B12 LEVEL 1318 PG/ML
== END ==
LOC: M SFHCPLAZ 11:25
DX: L65.0 Telogen effluvium (principal); L29.9 Pruritus, unspecified; L82.1 Other seborrheic keratosis; L85.3 Xerosis cutis; L57.0 Actinic keratosis; I87.2 Venous insufficiency (chronic) (peripheral); Z12.83 Encounter for screening for malignant neoplasm of skin; Z79.82 Long term (current) use of aspirin; Z79.899 Other long term (current) drug therapy; Z85.828 Personal history of other malignant neoplasm of skin
CPT/HCPCS: 82746

== ENCOUNTER → 2017-10-21 | Outpatient (REF) | payer MEDICARE ==
[2017-10-21 18:23] LABS: APPEARANCE, URINE HAZY (CLEAR); BACTERIA, URINE AUTO 3+ (NEGATIVE); BILIRUBIN, URINE AUTO NEGATIVE (NEGATIVE); BLOOD, URINE BLOOD NEGATIVE (NEGATIVE); COLOR, URINE AMBER (YELLOW); GLUCOSE, URINE (UA) AUTO NEGATIVE (NEGATIVE); KETONE, URINE AUTO TRACE mg/dL (NEGATIVE); LEUKOCYTE ESTERASE, URINE AUTO 2+ (NEGATIVE); MUCUS, URINE SMALL (NEGATIVE); NITRITE, URINE AUTO NEGATIVE (NEGATIVE); PROTEIN, URINE AUTO NEGATIVE (NEGATIVE); RBC, URINE AUTO 3 /HPF (0-3); SPECIFIC GRAVITY URINE AUTO 1.026 (1.002-1.035); SQUAMOUS EPITHELIAL CELL UR AU 4 /HPF (0-6); UROBILINOGEN, URINE AUTO 0.2 mg/dL (0.0-2.0); WBC, URINE AUTO 60 /HPF (0-3)
== END ==
DX: R30.0 Dysuria (principal)
CPT/HCPCS: 81001

== ENCOUNTER → 2017-10-27 | Outpatient (CLI) | payer MEDICARE | LOC: M RAD 13:09 | DX: M17.12 Unilateral primary osteoarthritis, left knee (principal) | CPT/HCPCS: 73564 ==

== ENCOUNTER → 2018-02-16 | Outpatient (REF) | payer MEDICARE ==
[2018-02-16 10:24] LABS: BASO % 0.3 % (0.0-1.0); EOS # 0.4 10^3/uL (0.0-0.50); EOS % 4.8 % (0.0-3.0); HEMATOCRIT 37.5 % (36.0-47.0); HEMOGLOBIN 12.3 g/dl (12.0-15.5); IMMATURE GRANULOCYTE % 0.1 % (0-3.0); LYMPH # 2.4 10^3/uL (1.5-4.5); LYMPH % 26.3 % (24.0-44.0); MEAN CORPUSCULAR HEMOGLOBIN 32.6 pg (27.0-33.0); MEAN CORPUSCULAR HGB CONC 32.8 g/dl (32.0-36.5); MEAN CORPUSCULAR VOLUME 99.5 fl (80.0-96.0); MONO # 0.5 10^3/uL (0.0-0.8); MONO % 5.7 % (0.0-5.0); NEUTROPHILS # 5.7 10^3/uL (1.8-7.7); NEUTROPHILS % 62.8 % (36.0-66.0); PLATELET COUNT, AUTOMATED 269 10^3/uL (150-450); RED BLOOD COUNT 3.77 10^6/uL (4.00-5.40); RED CELL DISTRIBUTION WIDTH 14.6 % (11.5-14.5); WHITE BLOOD COUNT 9.1 10^3/uL (4.0-10.0)
== END ==
DX: R05 Cough (principal)
CPT/HCPCS: 85025

== ENCOUNTER → 2018-02-19 | Outpatient (CLI) | payer MEDICARE | LOC: M SMT 11:12 | DX: R09.89 Other specified symptoms and signs involving the circulatory and respiratory systems (principal); J84.9 Interstitial pulmonary disease, unspecified | CPT/HCPCS: 71046 ==

== ENCOUNTER → 2018-04-26 | Outpatient (REF) | payer MEDICARE | LOC: M SFHCPLAZ 15:17 | DX: R60.0 Localized edema (principal); Z53.8 Procedure and treatment not carried out for other reasons ==

== ENCOUNTER → 2018-05-01 | Outpatient (REF) | payer MEDICARE ==
[2018-05-01 10:26] LABS: ALBUMIN 3.7 GM/DL (3.2-5.2); ALKALINE PHOSPHATASE 65 U/L (45-117); ALT/SGPT 21 U/L (12-78); ANION GAP 8 MEQ/L (8-16); AST/SGOT 30 U/L (7-37); BILIRUBIN,TOTAL 0.4 MG/DL (0.2-1.0); BLOOD UREA NITROGEN 23 MG/DL (7-18); CALCIUM LEVEL 9.3 MG/DL (8.8-10.2); CARBON DIOXIDE LEVEL 28 MEQ/L (21-32); CHLORIDE LEVEL 106 MEQ/L (98-107); CREATININE FOR GFR 1.01 MG/DL (0.55-1.30); GLOMERULAR FILTRATION RATE 55.5 (>32); GLUCOSE, FASTING 93 MG/DL (70-100); NT-PRO BNP 412 PG/ML (<450); POTASSIUM SERUM 3.8 MEQ/L (3.5-5.1); SODIUM LEVEL 142 MEQ/L (136-145); TOTAL PROTEIN 7.1 GM/DL (6.4-8.2)
[2018-05-01 10:40] LABS: ALBUMIN/GLOBULIN RATIO 0.92 (1.00-1.93)
== END ==
DX: R60.0 Localized edema (principal)
CPT/HCPCS: 80053

== ENCOUNTER → 2018-05-03 | Outpatient (REF) | payer MEDICARE ==
[2018-05-04 11:27] LABS: APPEARANCE, URINE CLEAR (CLEAR); BACTERIA, URINE AUTO 3+ (NEGATIVE); BILIRUBIN, URINE AUTO NEGATIVE (NEGATIVE); BLOOD, URINE BLOOD NEGATIVE (NEGATIVE); COLOR, URINE YELLOW (YELLOW); GLUCOSE, URINE (UA) AUTO NEGATIVE (NEGATIVE); KETONE, URINE AUTO NEGATIVE (NEGATIVE); LEUKOCYTE ESTERASE, URINE AUTO NEGATIVE (NEGATIVE); MUCUS, URINE SMALL (NEGATIVE); NITRITE, URINE AUTO NEGATIVE (NEGATIVE); PROTEIN, URINE AUTO NEGATIVE (NEGATIVE); RBC, URINE AUTO 1 /HPF (0-3); SQUAMOUS EPITHELIAL CELL UR AU 0 /HPF (0-6); UROBILINOGEN, URINE AUTO 0.2 mg/dL (0.0-2.0); WBC, URINE AUTO 5 /HPF (0-3)
== END ==
DX: R60.0 Localized edema (principal)
CPT/HCPCS: 81001

== ENCOUNTER → 2018-05-07 | Outpatient (REF) | payer MEDICARE ==
[2018-05-07 16:43] LABS: ALBUMIN 3.6 GM/DL (3.2-5.2); ALBUMIN/GLOBULIN RATIO 1.09 (1.00-1.93); ALKALINE PHOSPHATASE 63 U/L (45-117); ALT/SGPT 23 U/L (12-78); ANION GAP 11 MEQ/L (8-16); AST/SGOT 21 U/L (7-37); BILIRUBIN,TOTAL 0.3 MG/DL (0.2-1.0); BLOOD UREA NITROGEN 20 MG/DL (7-18); CALCIUM LEVEL 9.2 MG/DL (8.8-10.2); CARBON DIOXIDE LEVEL 28 MEQ/L (21-32); CHLORIDE LEVEL 104 MEQ/L (98-107); CREATININE FOR GFR 0.87 MG/DL (0.55-1.30); GLOMERULAR FILTRATION RATE > 60.0 (>32); GLUCOSE, FASTING 80 MG/DL (70-100); NT-PRO BNP 636 PG/ML (<450); SODIUM LEVEL 143 MEQ/L (136-145); TOTAL PROTEIN 6.9 GM/DL (6.4-8.2)
== END ==
LOC: M SFHCPLAZ 12:29
DX: I50.33 Acute on chronic diastolic (congestive) heart failure (principal)
CPT/HCPCS: 80053

== ENCOUNTER → 2018-06-26 | Outpatient (REF) | payer MEDICARE ==
[2018-06-26 17:39] LABS: AMORPHOUS SEDIMENT SMALL (NEGATIVE); APPEARANCE, URINE CLOUDY (CLEAR); BACTERIA, URINE AUTO 1+ (NEGATIVE); BILIRUBIN, URINE AUTO NEGATIVE (NEGATIVE); BLOOD, URINE BLOOD NEGATIVE (NEGATIVE); COLOR, URINE AMBER (YELLOW); GLUCOSE, URINE (UA) AUTO NEGATIVE (NEGATIVE); KETONE, URINE AUTO NEGATIVE (NEGATIVE); LEUKOCYTE ESTERASE, URINE AUTO 2+ (NEGATIVE); MUCUS, URINE SMALL (NEGATIVE); NITRITE, URINE AUTO NEGATIVE (NEGATIVE); PROTEIN, URINE AUTO NEGATIVE (NEGATIVE); RBC, URINE AUTO 2 /HPF (0-3); SPECIFIC GRAVITY URINE AUTO 1.019 (1.002-1.035); SQUAMOUS EPITHELIAL CELL UR AU 12 /HPF (0-6); UROBILINOGEN, URINE AUTO 0.2 mg/dL (0.0-2.0); WBC, URINE AUTO 58 /HPF (0-3)
== END ==
LOC: M LAB REF 17:01
DX: R31.0 Gross hematuria (principal)
CPT/HCPCS: 81001

== ENCOUNTER 2018-06-30 13:43 | Inpatient (IN) | payer MEDICARE ==
[2018-06-30] MEDS: METOCLOPRAMIDE INJ 10MG/2ML VIAL (J2765) IV (14:00)
[2018-06-30 14:45] LABS: BASO % 0.1 % (0.0-1.0); EOS # 0.1 10^3/uL (0.0-0.50); EOS % 0.8 % (0.0-3.0); HEMATOCRIT 34.9 % (36.0-47.0); HEMOGLOBIN 11.5 g/dl (12.0-15.5); IMMATURE GRANULOCYTE % 0.4 % (0-3.0); LYMPH # 1.2 10^3/uL (1.5-4.5); LYMPH % 9.9 % (24.0-44.0); MEAN CORPUSCULAR HEMOGLOBIN 33.8 pg (27.0-33.0); MEAN CORPUSCULAR VOLUME 102.6 fl (80.0-96.0); MONO # 0.6 10^3/uL (0.0-0.8); MONO % 5.1 % (0.0-5.0); NEUTROPHILS # 10.2 10^3/uL (1.8-7.7); NEUTROPHILS % 83.7 % (36.0-66.0); PLATELET COUNT, AUTOMATED 220 10^3/uL (150-450); RED CELL DISTRIBUTION WIDTH 14.2 % (11.5-14.5); WHITE BLOOD COUNT 12.2 10^3/uL (4.0-10.0)
[2018-06-30 15:08] LABS: ALBUMIN 3.5 GM/DL (3.2-5.2); ALBUMIN/GLOBULIN RATIO 1.06 (1.00-1.93); ALKALINE PHOSPHATASE 64 U/L (45-117); ALT/SGPT 26 U/L (12-78); ANION GAP 9 MEQ/L (8-16); AST/SGOT 29 U/L (7-37); BILIRUBIN,DIRECT < 0.1 MG/DL (0.0-0.2); BILIRUBIN,TOTAL 0.2 MG/DL (0.2-1.0); BLOOD UREA NITROGEN 60 MG/DL (7-18); CALCIUM LEVEL 9.3 MG/DL (8.8-10.2); CARBON DIOXIDE LEVEL 23 MEQ/L (21-32); CHLORIDE LEVEL 103 MEQ/L (98-107); CREATININE FOR GFR 3.51 MG/DL (0.55-1.30); GLOMERULAR FILTRATION RATE 13.2 (>32); GLUCOSE, FASTING 142 MG/DL (70-100); LIPASE 412 U/L (73-393); POTASSIUM SERUM 5.7 MEQ/L (3.5-5.1); SODIUM LEVEL 135 MEQ/L (136-145); TOTAL PROTEIN 6.8 GM/DL (6.4-8.2)
[2018-06-30] MEDS: cefTRIAXone SOD 1 GM in D5W MINI-BAG PLUS 50 ML IV (15:54)
[2018-06-30] MEDS ORDERED: MOM 30ML SUSPENSION UDC PO (17:30)
[2018-06-30] MEDS ORDERED: SARNA LOTION 225 ML BTL TOP (17:30)
[2018-06-30] MEDS ORDERED: NYSTATIN 100,000 UNITS/GM TOPICAL PWD 15 GM TOP (17:30)
[2018-06-30] MEDS ORDERED: ALBUTEROL 90 MCG/ACT 8GM HFA INHALER INH (17:30)
[2018-06-30] MEDS ORDERED: GLUCAGON FOR INJ 1 MG VIAL (J1610) SC (17:45)
[2018-06-30] MEDS ORDERED: DEXTROSE 50% 50 ML SYRINGE IV (17:45)
[2018-06-30] MEDS ORDERED: GLUCOSE 4 GM CHEW TABLET PO (17:45)
[2018-06-30 18:04] LABS: CHOLESTEROL LEVEL 112 MG/DL (<200); CHOLESTEROL RISK RATIO 2.604 (<5); HDL CHOLESTEROL 43 MG/DL (>40); LDL CHOLESTEROL 44 MG/DL (<100); NON-HDL-C 69 MG/DL; TRIGLYCERIDES LEVEL 125 MG/DL (<150)
[2018-06-30 18:14] LABS: OSMOLALITY SERUM 306 MOSM/KG (280-301)
[2018-06-30] MEDS: ATORVASTATIN 10 MG TAB PO (20:37)
[2018-06-30] MEDS: METOPROLOL TART 25 MG TABLET PO (20:38)
[2018-06-30] MEDS: FAMOTIDINE 20 MG TAB PO (20:38)
[2018-06-30] MEDS: SENOKOT S TAB PO (20:39)
[2018-06-30] MEDS: NS 1,000 ML IV (20:40)
[2018-06-30 20:56] LABS: BEDSIDE GLUCOSE 120 MG/DL (83-110)
[2018-06-30] MEDS: HumaLOG INSULIN (NovoLOG) PER UNIT SC (21:00)
[2018-06-30] MEDS: HEPARIN SOD (PORCINE) 5000 UNITS/ML VIAL SC (23:05)
[2018-06-30 23:43] LABS: KETONE, URINE AUTO RFX NEGATIVE (NEGATIVE); LEUKOCYTE ESTERASE UR AUTO RFX NEGATIVE (NEGATIVE); MUCUS, URINE RFX SMALL (NEGATIVE); NITRITE, URINE AUTO RFX NEGATIVE (NEGATIVE); RBC, URINE AUTO RFX 0 /HPF (0-3); SPECIFIC GRAVITY UR AUTO RFX 1.013 (1.002-1.035); SQUAM EPITHELIAL CELL UR AURFX 3 /HPF (0-6); WBC, URINE AUTO RFX 1 /HPF (0-3)
[2018-06-30 23:47] LABS: OSMOLALITY URINE 397 MOSM/KG (500-800)
[2018-07-01 00:10] LABS: CHLORIDE,RANDOM URINE 65 MEQ/L; SODIUM,RANDOM URINE 76 MEQ/L
[2018-07-01] MEDS: NS 1,000 ML IV ×3 (04:20→09:03)
[2018-07-01] MEDS: cefTRIAXone SOD 1 GM in D5W MINI-BAG PLUS 50 ML IV ×2 (04:20→16:00)
[2018-07-01] MEDS: HEPARIN SOD (PORCINE) 5000 UNITS/ML VIAL SC ×3 (05:40→23:11)
[2018-07-01] MEDS: LEVOTHYROXINE 50MCG TABLET (0.05MG) PO (05:40)
[2018-07-01 05:59] LABS: HEMATOCRIT 34.5 % (36.0-47.0); HEMOGLOBIN 11.4 g/dl (12.0-15.5); MEAN CORPUSCULAR HEMOGLOBIN 33.2 pg (27.0-33.0); MEAN CORPUSCULAR VOLUME 100.6 fl (80.0-96.0); PLATELET COUNT, AUTOMATED 218 10^3/uL (150-450); RED BLOOD COUNT 3.43 10^6/uL (4.00-5.40); WHITE BLOOD COUNT 11.4 10^3/uL (4.0-10.0)
[2018-07-01 06:29] LABS: ANION GAP 6 MEQ/L (8-16); BLOOD UREA NITROGEN 56 MG/DL (7-18); CALCIUM LEVEL 9.7 MG/DL (8.8-10.2); CARBON DIOXIDE LEVEL 22 MEQ/L (21-32); CHLORIDE LEVEL 107 MEQ/L (98-107); CREATININE FOR GFR 2.78 MG/DL (0.55-1.30); GLOMERULAR FILTRATION RATE 17.2 (>32); GLUCOSE, FASTING 105 MG/DL (70-100); LIPASE 363 U/L (73-393); MAGNESIUM LEVEL 2.1 MG/DL (1.8-2.4); POTASSIUM SERUM 4.8 MEQ/L (3.5-5.1); SODIUM LEVEL 135 MEQ/L (136-145)
[2018-07-01] MEDS: HumaLOG INSULIN (NovoLOG) PER UNIT SC ×4 (07:30→21:00)
[2018-07-01] MEDS: FLUoxetine 20 MG CAP PO ×2 (09:00→09:02)
[2018-07-01] MEDS ORDERED: ISOSORBIDE MON. (IMDUR) 60 MG XR TAB PO (09:00)
[2018-07-01] MEDS: ISOSORBIDE MON. (IMDUR) 30 MG XR TAB PO (09:00)
[2018-07-01] MEDS ORDERED: FLUoxetine 20 MG CAP PO (09:00)
[2018-07-01] MEDS: ASPIRIN 81 MG ENTERIC TAB PO (09:02)
[2018-07-01] MEDS: FLECAINIDE 50MG TABLET PO ×2 (09:02→20:30)
[2018-07-01] MEDS: ALLOPURINOL 300 MG TAB PO (09:02)
[2018-07-01] MEDS: SENOKOT S TAB PO ×2 (09:03→20:31)
[2018-07-01] MEDS: MULTIVITAMINS/MINERALS THERAP 1 TAB PO (09:03)
[2018-07-01] MEDS: METOPROLOL TART 25 MG TABLET PO ×2 (09:03→20:31)
[2018-07-01] MEDS: FAMOTIDINE 20 MG TAB PO ×2 (09:03→20:31)
[2018-07-01 11:07] LABS: ESTIMATED AVERAGE GLUCOSE 123 MG/DL (60-110); HEMOGLOBIN A1c 5.9 %
[2018-07-01 12:08] LABS: BEDSIDE GLUCOSE 120 MG/DL (83-110)
[2018-07-01 16:34] LABS: BEDSIDE GLUCOSE 121 MG/DL (83-110)
[2018-07-01] MEDS: ATORVASTATIN 10 MG TAB PO (20:30)
[2018-07-01 20:42] LABS: BEDSIDE GLUCOSE 89 MG/DL (83-110)
[2018-07-02] MEDS: cefTRIAXone SOD 1 GM in D5W MINI-BAG PLUS 50 ML IV ×2 (04:45→17:21)
[2018-07-02] MEDS: HEPARIN SOD (PORCINE) 5000 UNITS/ML VIAL SC ×3 (05:53→21:25)
[2018-07-02] MEDS: LEVOTHYROXINE 50MCG TABLET (0.05MG) PO (05:53)
[2018-07-02] MEDS: HumaLOG INSULIN (NovoLOG) PER UNIT SC ×4 (07:30→20:33)
[2018-07-02] MEDS: FLECAINIDE 50MG TABLET PO ×2 (09:00→20:37)
[2018-07-02 10:19] LABS: BASO % 0.3 % (0.0-1.0); EOS # 0.2 10^3/uL (0.0-0.50); EOS % 2.1 % (0.0-3.0); HEMATOCRIT 35.7 % (36.0-47.0); HEMOGLOBIN 11.8 g/dl (12.0-15.5); IMMATURE GRANULOCYTE % 0.3 % (0-3.0); LYMPH # 1.5 10^3/uL (1.5-4.5); MEAN CORPUSCULAR HEMOGLOBIN 34.1 pg (27.0-33.0); MEAN CORPUSCULAR HGB CONC 33.1 g/dl (32.0-36.5); MEAN CORPUSCULAR VOLUME 103.2 fl (80.0-96.0); MONO # 0.7 10^3/uL (0.0-0.8); MONO % 6.4 % (0.0-5.0); NEUTROPHILS # 8.4 10^3/uL (1.8-7.7); NEUTROPHILS % 76.9 % (36.0-66.0); PLATELET COUNT, AUTOMATED 201 10^3/uL (150-450); RED BLOOD COUNT 3.46 10^6/uL (4.00-5.40); RED CELL DISTRIBUTION WIDTH 14.5 % (11.5-14.5); WHITE BLOOD COUNT 10.9 10^3/uL (4.0-10.0)
[2018-07-02] MEDS: FLUoxetine 20 MG CAP PO (10:52)
[2018-07-02] MEDS: ALLOPURINOL 300 MG TAB PO (10:52)
[2018-07-02] MEDS: MULTIVITAMINS/MINERALS THERAP 1 TAB PO (10:52)
[2018-07-02] MEDS: ASPIRIN 81 MG ENTERIC TAB PO (10:52)
[2018-07-02] MEDS: METOPROLOL TART 25 MG TABLET PO ×2 (10:53→20:38)
[2018-07-02] MEDS: ISOSORBIDE MON. (IMDUR) 30 MG XR TAB PO (10:54)
[2018-07-02] MEDS: SENOKOT S TAB PO ×2 (10:56→20:38)
[2018-07-02] MEDS: FAMOTIDINE 20 MG TAB PO ×2 (10:56→20:37)
[2018-07-02 11:30] LABS: ALBUMIN 3.2 GM/DL (3.2-5.2); ANION GAP 11 MEQ/L (8-16); BLOOD UREA NITROGEN 48 MG/DL (7-18); CALCIUM LEVEL 9.6 MG/DL (8.8-10.2); CARBON DIOXIDE LEVEL 17 MEQ/L (21-32); CHLORIDE LEVEL 106 MEQ/L (98-107); CREATININE FOR GFR 2.23 MG/DL (0.55-1.30); GLOMERULAR FILTRATION RATE 22.2 (>32); GLUCOSE, FASTING 132 MG/DL (70-100); PHOSPHORUS LEVEL 2.6 MG/DL (2.5-4.9); POTASSIUM SERUM 5.8 MEQ/L (3.5-5.1); SODIUM LEVEL 134 MEQ/L (136-145)
[2018-07-02 11:35] LABS: BEDSIDE GLUCOSE 108 MG/DL (83-110)
[2018-07-02] MEDS: PATIROMER SORBITEX CALCIUM 8.4 GM POWDER PACKET (VELTASSA) PO (13:18)
[2018-07-02 16:40] LABS: BEDSIDE GLUCOSE 104 MG/DL (83-110)
[2018-07-02] MEDS: ATORVASTATIN 10 MG TAB PO (20:37)
[2018-07-02 21:15] LABS: BEDSIDE GLUCOSE 79 MG/DL (83-110)
[2018-07-03] MEDS: cefTRIAXone SOD 1 GM in D5W MINI-BAG PLUS 50 ML IV ×2 (03:17→16:08)
[2018-07-03] MEDS: ACETAMINOPHEN 500 MG TAB PO (03:19)
[2018-07-03] MEDS: LEVOTHYROXINE 50MCG TABLET (0.05MG) PO (05:36)
[2018-07-03] MEDS: HEPARIN SOD (PORCINE) 5000 UNITS/ML VIAL SC ×3 (05:37→23:13)
[2018-07-03 07:16] LABS: HEMATOCRIT 32.8 % (36.0-47.0); HEMOGLOBIN 10.9 g/dl (12.0-15.5); MEAN CORPUSCULAR HEMOGLOBIN 33.5 pg (27.0-33.0); MEAN CORPUSCULAR HGB CONC 33.2 g/dl (32.0-36.5); MEAN CORPUSCULAR VOLUME 100.9 fl (80.0-96.0); PLATELET COUNT, AUTOMATED 188 10^3/uL (150-450); RED BLOOD COUNT 3.25 10^6/uL (4.00-5.40); RED CELL DISTRIBUTION WIDTH 14.3 % (11.5-14.5); WHITE BLOOD COUNT 9.5 10^3/uL (4.0-10.0)
[2018-07-03] MEDS: HumaLOG INSULIN (NovoLOG) PER UNIT SC ×2 (07:30→12:00)
[2018-07-03 07:39] LABS: ANION GAP 7 MEQ/L (8-16); BLOOD UREA NITROGEN 45 MG/DL (7-18); CALCIUM LEVEL 9.6 MG/DL (8.8-10.2); CARBON DIOXIDE LEVEL 22 MEQ/L (21-32); CHLORIDE LEVEL 108 MEQ/L (98-107); CREATININE FOR GFR 1.84 MG/DL (0.55-1.30); GLOMERULAR FILTRATION RATE 27.8 (>32); GLUCOSE, FASTING 94 MG/DL (70-100); LIPASE 404 U/L (73-393); MAGNESIUM LEVEL 2.1 MG/DL (1.8-2.4); POTASSIUM SERUM 5.5 MEQ/L (3.5-5.1); SODIUM LEVEL 137 MEQ/L (136-145)
[2018-07-03] MEDS: ALLOPURINOL 300 MG TAB PO (09:13)
[2018-07-03] MEDS: ISOSORBIDE MON. (IMDUR) 30 MG XR TAB PO (09:13)
[2018-07-03] MEDS: FLUoxetine 20 MG CAP PO (09:13)
[2018-07-03] MEDS: FAMOTIDINE 20 MG TAB PO ×2 (09:14→20:09)
[2018-07-03] MEDS: METOPROLOL TART 25 MG TABLET PO ×2 (09:14→20:09)
[2018-07-03] MEDS: FLECAINIDE 50MG TABLET PO ×2 (09:14→20:09)
[2018-07-03] MEDS: SENOKOT S TAB PO ×2 (09:14→20:09)
[2018-07-03] MEDS: ASPIRIN 81 MG ENTERIC TAB PO (09:14)
[2018-07-03] MEDS: MULTIVITAMINS/MINERALS THERAP 1 TAB PO (09:14)
[2018-07-03 11:58] LABS: BEDSIDE GLUCOSE 105 MG/DL (83-110)
[2018-07-03 17:08] LABS: BEDSIDE GLUCOSE 126 MG/DL (83-110)
[2018-07-03] MEDS: ATORVASTATIN 10 MG TAB PO (20:09)
[2018-07-04] MEDS: cefTRIAXone SOD 1 GM in D5W MINI-BAG PLUS 50 ML IV (03:29)
[2018-07-04] MEDS ORDERED: cefTRIAXone SOD 1 GM VIAL (J0696) IM (04:00)
[2018-07-04] MEDS: LEVOTHYROXINE 50MCG TABLET (0.05MG) PO (05:56)
[2018-07-04] MEDS: HEPARIN SOD (PORCINE) 5000 UNITS/ML VIAL SC (05:56)
[2018-07-04 06:34] LABS: HEMATOCRIT 33.2 % (36.0-47.0); MEAN CORPUSCULAR HEMOGLOBIN 34.4 pg (27.0-33.0); MEAN CORPUSCULAR HGB CONC 33.1 g/dl (32.0-36.5); MEAN CORPUSCULAR VOLUME 103.8 fl (80.0-96.0); PLATELET COUNT, AUTOMATED 182 10^3/uL (150-450); RED CELL DISTRIBUTION WIDTH 14.5 % (11.5-14.5); WHITE BLOOD COUNT 8.9 10^3/uL (4.0-10.0)
[2018-07-04 06:56] LABS: ANION GAP 7 MEQ/L (8-16); BLOOD UREA NITROGEN 42 MG/DL (7-18); CALCIUM LEVEL 9.4 MG/DL (8.8-10.2); CARBON DIOXIDE LEVEL 21 MEQ/L (21-32); CHLORIDE LEVEL 110 MEQ/L (98-107); CREATININE FOR GFR 1.67 MG/DL (0.55-1.30); GLUCOSE, FASTING 85 MG/DL (70-100); POTASSIUM SERUM 5.2 MEQ/L (3.5-5.1); SODIUM LEVEL 138 MEQ/L (136-145)
[2018-07-04] MEDS: FLECAINIDE 50MG TABLET PO (08:30)
[2018-07-04] MEDS: ALLOPURINOL 300 MG TAB PO (08:30)
[2018-07-04] MEDS: METOPROLOL TART 25 MG TABLET PO (08:31)
[2018-07-04] MEDS: FLUoxetine 20 MG CAP PO (08:31)
[2018-07-04] MEDS: ASPIRIN 81 MG ENTERIC TAB PO (08:32)
[2018-07-04] MEDS: MULTIVITAMINS/MINERALS THERAP 1 TAB PO (08:32)
[2018-07-04] MEDS: SENOKOT S TAB PO (08:32)
[2018-07-04] MEDS: FAMOTIDINE 20 MG TAB PO (08:32)
[2018-07-04] MEDS: ISOSORBIDE MON. (IMDUR) 30 MG XR TAB PO (08:32)
[2018-07-04 11:47] LABS: BEDSIDE GLUCOSE 107 MG/DL (83-110)
[2018-07-04 12:56] LABS: CORTISOL AM 20.4 UG/DL (4.3-22.4)
[2018-07-05 00:07] LABS: FLECAINIDE LEVEL 0.62 ug/mL (0.20-1.00)
== END 2018-07-04 12:32 | DRG 682 ==
LOC: M ED 13:43 → M ED INP 16:40 → M MSPAV 18:38
DX: N17.9 Acute kidney failure, unspecified (principal); K85.90 Acute pancreatitis without necrosis or infection, unspecified; I13.0 Hypertensive heart and chronic kidney disease with heart failure and stage 1 through stage 4 chronic kidney disease, or unspecified chronic kidney disease; I50.32 Chronic diastolic (congestive) heart failure; N39.0 Urinary tract infection, site not specified; Z68.41 Body mass index [BMI] 40.0-44.9, adult; Z66 Do not resuscitate; B96.20 Unspecified Escherichia coli [E. coli] as the cause of diseases classified elsewhere; I48.91 Unspecified atrial fibrillation; N18.2 Chronic kidney disease, stage 2 (mild); E66.9 Obesity, unspecified; T50.2X5A Adverse effect of carbonic-anhydrase inhibitors, benzothiadiazides and other diuretics, initial encounter; F32.9 Major depressive disorder, single episode, unspecified; E87.5 Hyperkalemia; G47.33 Obstructive sleep apnea (adult) (pediatric); T44.5X5A Adverse effect of predominantly beta-adrenoreceptor agonists, initial encounter; E03.9 Hypothyroidism, unspecified; E78.5 Hyperlipidemia, unspecified; M10.9 Gout, unspecified; E55.9 Vitamin D deficiency, unspecified; E11.9 Type 2 diabetes mellitus without complications; Z90.711 Acquired absence of uterus with remaining cervical stump; Z90.49 Acquired absence of other specified parts of digestive tract; Z96.651 Presence of right artificial knee joint; Z90.721 Acquired absence of ovaries, unilateral; Z87.891 Personal history of nicotine dependence; Z91.048 Other nonmedicinal substance allergy status; Z88.8 Allergy status to other drugs, medicaments and biological substances

== ENCOUNTER → 2018-07-10 | Outpatient (REF) | payer MEDICARE ==
[~2018-07-10] MED LIST changes: +ACET1TAB55 PO; +ACET500T15 PO; +ASPI81TA24 PO; +AZEL0.1S NARES; +BACT800T5 PO; +CEFD300CAP PO; +CEFU50TA PO; +CETALIQ TOP; +CLOT1CRE71 TOP; -DILT120C PO; +DILT120C77 PO; +FLEC50HA PO; -FLEC50TA PO; +FLUO20CA19 PO; +FLUO40CA PO; +FURO20TA2 PO; +ISOS30TA4 PO; +MILK120011 PO; -MILKSUS PO; +NAPR-855 PO; +NYST1POW9 TOP; +SARN1LOT3 TOP; +SENN8.6T7 PO; +SPIR-10 PO; +SYST1SOL OU; +VENTAER INH; +VITMTA PO; +ZANT150T15 PO; -ZANT1TAB PO; -ZYLO300T4 PO; +ZYLO300T6 PO
[2018-07-10 08:30] LABS: CALCIUM LEVEL 8.8 MG/DL (8.8-10.2); CREATININE FOR GFR 1.09 MG/DL (0.55-1.30); GLOMERULAR FILTRATION RATE 50.8 (>32); POTASSIUM SERUM 5.1 MEQ/L (3.5-5.1)
== END ==
PROVIDERS: ATTEND Family Medicine
DX: I10 Essential (primary) hypertension (principal)

== ENCOUNTER → 2018-07-11 | Outpatient (REF) ==
[2018-07-11 08:48] LABS: ANION GAP 5 MEQ/L (8-16); BLOOD UREA NITROGEN 36 MG/DL (7-18); CALCIUM LEVEL 8.8 MG/DL (8.8-10.2); CARBON DIOXIDE LEVEL 23 MEQ/L (21-32); CHLORIDE LEVEL 113 MEQ/L (98-107); CREATININE FOR GFR 1.09 MG/DL (0.55-1.30); GLOMERULAR FILTRATION RATE 50.8 (>32); GLUCOSE, FASTING 87 MG/DL (70-100); POTASSIUM SERUM 4.7 MEQ/L (3.5-5.1); SODIUM LEVEL 141 MEQ/L (136-145)
== END ==
DX: E87.5 Hyperkalemia (principal)

== ENCOUNTER → 2018-07-17 | Outpatient (REF) | DX: E87.5 Hyperkalemia (principal) ==

== ENCOUNTER → 2018-07-18 | Outpatient (REF) ==
[2018-07-18 17:58] LABS: HEMATOCRIT 32.9 % (36.0-47.0); HEMOGLOBIN 10.7 g/dl (12.0-15.5); MEAN CORPUSCULAR HEMOGLOBIN 33.2 pg (27.0-33.0); MEAN CORPUSCULAR HGB CONC 32.5 g/dl (32.0-36.5); MEAN CORPUSCULAR VOLUME 102.2 fl (80.0-96.0); PLATELET COUNT, AUTOMATED 227 10^3/uL (150-450); RED BLOOD COUNT 3.22 10^6/uL (4.00-5.40); RED CELL DISTRIBUTION WIDTH 14.3 % (11.5-14.5); WHITE BLOOD COUNT 6.9 10^3/uL (4.0-10.0)
[2018-07-18 18:19] LABS: ANION GAP 9 MEQ/L (8-16); BLOOD UREA NITROGEN 28 MG/DL (7-18); CALCIUM LEVEL 8.4 MG/DL (8.8-10.2); CARBON DIOXIDE LEVEL 24 MEQ/L (21-32); CHLORIDE LEVEL 106 MEQ/L (98-107); GLOMERULAR FILTRATION RATE 56.1 (>32); GLUCOSE, FASTING 85 MG/DL (70-100); NT-PRO BNP 450 PG/ML (<450); POTASSIUM SERUM 4.8 MEQ/L (3.5-5.1); SODIUM LEVEL 139 MEQ/L (136-145)
== END ==
DX: I50.9 Heart failure, unspecified (principal)

== ENCOUNTER → 2018-07-24 | Outpatient (REF) ==
[2018-07-24 10:09] LABS: HEMATOCRIT 32.5 % (36.0-47.0); HEMOGLOBIN 10.5 g/dl (12.0-15.5); MEAN CORPUSCULAR HEMOGLOBIN 33.7 pg (27.0-33.0); MEAN CORPUSCULAR HGB CONC 32.3 g/dl (32.0-36.5); MEAN CORPUSCULAR VOLUME 104.2 fl (80.0-96.0); PLATELET COUNT, AUTOMATED 230 10^3/uL (150-450); RED BLOOD COUNT 3.12 10^6/uL (4.00-5.40); RED CELL DISTRIBUTION WIDTH 14.9 % (11.5-14.5); WHITE BLOOD COUNT 6.6 10^3/uL (4.0-10.0)
[2018-07-24 10:29] LABS: NT-PRO BNP 297 PG/ML (<450)
[2018-07-24 10:31] LABS: ANION GAP 9 MEQ/L (8-16); BLOOD UREA NITROGEN 23 MG/DL (7-18); CALCIUM LEVEL 8.4 MG/DL (8.8-10.2); CARBON DIOXIDE LEVEL 28 MEQ/L (21-32); CHLORIDE LEVEL 106 MEQ/L (98-107); GLOMERULAR FILTRATION RATE 50.3 (>32); GLUCOSE, FASTING 118 MG/DL (70-100); POTASSIUM SERUM 3.9 MEQ/L (3.5-5.1); SODIUM LEVEL 143 MEQ/L (136-145)
== END ==
DX: I50.9 Heart failure, unspecified (principal)

== ENCOUNTER → 2018-07-31 | Outpatient (REF) ==
[2018-07-31 10:32] LABS: ANION GAP 7 MEQ/L (8-16); BLOOD UREA NITROGEN 27 MG/DL (7-18); CALCIUM LEVEL 8.9 MG/DL (8.8-10.2); CARBON DIOXIDE LEVEL 30 MEQ/L (21-32); CHLORIDE LEVEL 103 MEQ/L (98-107); GLOMERULAR FILTRATION RATE 45.5 (>32); GLUCOSE, FASTING 113 MG/DL (70-100); NT-PRO BNP 188 PG/ML (<450); POTASSIUM SERUM 3.7 MEQ/L (3.5-5.1); SODIUM LEVEL 140 MEQ/L (136-145)
== END ==
DX: I50.9 Heart failure, unspecified (principal)

== ENCOUNTER → 2018-09-03 | Outpatient (REF) ==
[2018-09-03 09:59] LABS: CALCIUM LEVEL 8.4 MG/DL (8.8-10.2); CREATININE FOR GFR 1.7 MG/DL (0.55-1.30); GLOMERULAR FILTRATION RATE 30.4 (>32); POTASSIUM SERUM 4.6 MEQ/L (3.5-5.1)
== END ==
PROVIDERS: ATTEND Family Medicine
DX: I50.9 Heart failure, unspecified (principal)

== ENCOUNTER → 2018-09-05 | Outpatient (REF) ==
[2018-09-05 09:43] LABS: HEMATOCRIT 34.5 % (36.0-47.0); MEAN CORPUSCULAR HEMOGLOBIN 32.9 pg (27.0-33.0); MEAN CORPUSCULAR HGB CONC 31.9 g/dl (32.0-36.5); MEAN CORPUSCULAR VOLUME 103.3 fl (80.0-96.0); PLATELET COUNT, AUTOMATED 304 10^3/uL (150-450); RED BLOOD COUNT 3.34 10^6/uL (4.00-5.40)
== END ==
PROVIDERS: ATTEND Family Medicine
DX: E03.9 Hypothyroidism, unspecified (principal)

== ENCOUNTER → 2018-09-06 | Outpatient (REF) ==
[2018-09-06 11:00] LABS: CALCIUM LEVEL 8.8 MG/DL (8.8-10.2); CREATININE FOR GFR 1.57 MG/DL (0.55-1.30); GLOMERULAR FILTRATION RATE 33.3 (>32); POTASSIUM SERUM 4.6 MEQ/L (3.5-5.1)
== END ==
PROVIDERS: ATTEND Family Medicine
DX: I50.9 Heart failure, unspecified (principal)

== ENCOUNTER → 2018-09-11 | Outpatient (REF) ==
[2018-09-10 09:39] LABS: HEMATOCRIT 32.7 % (36.0-47.0); HEMOGLOBIN 10.6 g/dl (12.0-15.5); MEAN CORPUSCULAR HEMOGLOBIN 32.8 pg (27.0-33.0); MEAN CORPUSCULAR HGB CONC 32.4 g/dl (32.0-36.5); MEAN CORPUSCULAR VOLUME 101.2 fl (80.0-96.0); PLATELET COUNT, AUTOMATED 299 10^3/uL (150-450); RED BLOOD COUNT 3.23 10^6/uL (4.00-5.40); WHITE BLOOD COUNT 7.5 10^3/uL (4.0-10.0)
[2018-09-10 10:17] LABS: CALCIUM LEVEL 8.9 MG/DL (8.8-10.2); CREATININE FOR GFR 1.3 MG/DL (0.55-1.30); GLOMERULAR FILTRATION RATE 41.4 (>32); POTASSIUM SERUM 4.3 MEQ/L (3.5-5.1)
== END ==
PROVIDERS: ATTEND Family Medicine
DX: I50.9 Heart failure, unspecified (principal)

== ENCOUNTER → 2018-09-17 | Outpatient (REF) | payer MEDICARE ==
[2018-09-17 10:31] LABS: HEMATOCRIT 30.9 % (36.0-47.0); MEAN CORPUSCULAR HGB CONC 32.4 g/dl (32.0-36.5); PLATELET COUNT, AUTOMATED 248 10^3/uL (150-450); RED BLOOD COUNT 3.03 10^6/uL (4.00-5.40); WHITE BLOOD COUNT 8.5 10^3/uL (4.0-10.0)
[2018-09-17 11:01] LABS: CALCIUM LEVEL 8.7 MG/DL (8.8-10.2); CREATININE FOR GFR 1.22 MG/DL (0.55-1.30); GLOMERULAR FILTRATION RATE 44.6 (>32); POTASSIUM SERUM 4.4 MEQ/L (3.5-5.1)
== END ==
PROVIDERS: ATTEND Family Medicine
DX: I50.9 Heart failure, unspecified (principal)

== ENCOUNTER → 2018-09-24 | Outpatient (REF) | payer MEDICARE ==
[2018-09-24 10:09] LABS: CALCIUM LEVEL 8.7 MG/DL (8.8-10.2); CREATININE FOR GFR 1.11 MG/DL (0.55-1.30); GLOMERULAR FILTRATION RATE 49.7 (>32)
== END ==
PROVIDERS: ATTEND Physician Assistant
DX: I50.9 Heart failure, unspecified (principal)

== ENCOUNTER → 2018-10-03 | Outpatient (REF) | payer MEDICARE ==
[2018-10-03 10:45] LABS: HEMATOCRIT 32.7 % (36.0-47.0); HEMOGLOBIN 10.5 g/dl (12.0-15.5); MEAN CORPUSCULAR HEMOGLOBIN 33.5 pg (27.0-33.0); MEAN CORPUSCULAR HGB CONC 32.1 g/dl (32.0-36.5); MEAN CORPUSCULAR VOLUME 104.5 fl (80.0-96.0); PLATELET COUNT, AUTOMATED 260 10^3/uL (150-450); RED BLOOD COUNT 3.13 10^6/uL (4.00-5.40); WHITE BLOOD COUNT 8.1 10^3/uL (4.0-10.0)
[2018-10-03 11:16] LABS: CALCIUM LEVEL 9.1 MG/DL (8.8-10.2); CREATININE FOR GFR 1.31 MG/DL (0.55-1.30); GLOMERULAR FILTRATION RATE 41.1 (>32); POTASSIUM SERUM 3.9 MEQ/L (3.5-5.1)
== END ==
PROVIDERS: ATTEND Family Medicine
DX: I50.9 Heart failure, unspecified (principal)

== ENCOUNTER → 2018-10-04 | Outpatient (REF) | payer MEDICARE ==
[2018-10-04 10:56] LABS: HEMATOCRIT 34.4 % (36.0-47.0); HEMOGLOBIN 11.1 g/dl (12.0-15.5); MEAN CORPUSCULAR HEMOGLOBIN 33.8 pg (27.0-33.0); MEAN CORPUSCULAR HGB CONC 32.3 g/dl (32.0-36.5); MEAN CORPUSCULAR VOLUME 104.9 fl (80.0-96.0); PLATELET COUNT, AUTOMATED 262 10^3/uL (150-450); RED BLOOD COUNT 3.28 10^6/uL (4.00-5.40); WHITE BLOOD COUNT 8.3 10^3/uL (4.0-10.0)
[2018-10-04 11:12] LABS: APPEARANCE, URINE CLOUDY (CLEAR); BACTERIA, URINE AUTO 3+ (NEGATIVE); BILIRUBIN, URINE AUTO NEGATIVE (NEGATIVE); BLOOD, URINE BLOOD NEGATIVE (NEGATIVE); COLOR, URINE YELLOW (YELLOW); GLUCOSE, URINE (UA) AUTO NEGATIVE (NEGATIVE); KETONE, URINE AUTO NEGATIVE (NEGATIVE); LEUKOCYTE ESTERASE, URINE AUTO 3+ (NEGATIVE); MUCUS, URINE SMALL (NEGATIVE); NITRITE, URINE AUTO POSITIVE (NEGATIVE); PROTEIN, URINE AUTO 1+ mg/dL (NEGATIVE); RBC, URINE AUTO 21 /HPF (0-3); SPECIFIC GRAVITY URINE AUTO 1.015 (1.002-1.035); SQUAMOUS EPITHELIAL CELL UR AU 12 /HPF (0-6); TRANSITIONAL EPITHELIAL AUTO <1 /HPF; UROBILINOGEN, URINE AUTO 0.2 mg/dL (0.0-2.0); WBC, URINE AUTO TNTC /HPF (0-3)
[2018-10-04 11:15] LABS: CALCIUM LEVEL 8.8 MG/DL (8.8-10.2); CREATININE FOR GFR 1.33 MG/DL (0.55-1.30); GLOMERULAR FILTRATION RATE 40.4 (>32)
== END ==
PROVIDERS: ATTEND Family Medicine
DX: R41.82 Altered mental status, unspecified (principal)

== ENCOUNTER → 2019-01-05 | Outpatient (REF) | payer MEDICARE ==
[~2019-01-05] MED LIST changes: -ASPI1TAB PO; +ASPI81TA26 PO; +CLOT1CRE27 TOP; -CLOTR1CR TOP; +METO1TAB63 PO; -METO25TAB PO; +SENN1TAB41 PO; -SENN8.6T7 PO
[2019-01-05 07:32] LABS: APPEARANCE, URINE CLOUDY (CLEAR); BACTERIA, URINE AUTO 1+ (NEGATIVE); BILIRUBIN, URINE AUTO NEGATIVE (NEGATIVE); BLOOD, URINE BLOOD NEGATIVE (NEGATIVE); COLOR, URINE YELLOW (YELLOW); GLUCOSE, URINE (UA) AUTO NEGATIVE (NEGATIVE); KETONE, URINE AUTO NEGATIVE (NEGATIVE); LEUKOCYTE ESTERASE, URINE AUTO 3+ (NEGATIVE); NITRITE, URINE AUTO POSITIVE (NEGATIVE); PROTEIN, URINE AUTO NEGATIVE (NEGATIVE); RBC, URINE AUTO 8 /HPF (0-3); SPECIFIC GRAVITY URINE AUTO 1.015 (1.002-1.035); SQUAMOUS EPITHELIAL CELL UR AU 6 /HPF (0-6); UROBILINOGEN, URINE AUTO 0.2 mg/dL (0.0-2.0); WBC, URINE AUTO TNTC /HPF (0-3)
== END ==
PROVIDERS: ATTEND Student in an Organized Health Care Education/Training Program
DX: R44.3 Hallucinations, unspecified (principal); R41.82 Altered mental status, unspecified

== ENCOUNTER → 2019-01-22 | Outpatient (REF) | payer MEDICARE ==
[~2019-01-22] MED LIST changes: -DULO1CAP2 PO; +DULO1CAP5 PO; +FLON1SPR NARES; +MICO2CRE42 TOP; +MILKSUS21 PO; +PEPT262T2 PO; +QUET1TAB7 PO; +RANI1SYP PO; +SERO50TA PO
[2019-01-22 09:20] LABS: BASO % 0.4 % (0.0-1.0); EOS # 0.5 10^3/uL (0.0-0.50); EOS % 5.5 % (0.0-3.0); HEMATOCRIT 34.8 % (36.0-47.0); HEMOGLOBIN 11.3 g/dl (12.0-15.5); LYMPH # 1.9 10^3/uL (1.5-4.5); LYMPH % 19.9 % (24.0-44.0); MEAN CORPUSCULAR HEMOGLOBIN 33.4 pg (27.0-33.0); MEAN CORPUSCULAR HGB CONC 32.5 g/dl (32.0-36.5); MONO % 10.6 % (0.0-5.0); NEUTROPHILS # 6.1 10^3/uL (1.8-7.7); NEUTROPHILS % 63.2 % (36.0-66.0); PLATELET COUNT, AUTOMATED 235 10^3/uL (150-450); RED BLOOD COUNT 3.38 10^6/uL (4.00-5.40); WHITE BLOOD COUNT 9.7 10^3/uL (4.0-10.0)
[2019-01-22 09:59] LABS: CALCIUM LEVEL 8.7 MG/DL (8.8-10.2); CREATININE FOR GFR 1.4 MG/DL (0.55-1.30); POTASSIUM SERUM 4.7 MEQ/L (3.5-5.1); THYROID STIMULATING HORMONE 3.56 uIU/ML (0.358-3.740)
== END ==
PROVIDERS: ATTEND Hospitalist
DX: L29.9 Pruritus, unspecified (principal); E03.9 Hypothyroidism, unspecified; R60.0 Localized edema

== ENCOUNTER → 2019-02-05 | Outpatient (REF) | payer MEDICARE ==
[~2019-02-05] MED LIST changes: -FLON1SPR NARES; -MICO2CRE42 TOP; -MILKSUS21 PO; -PEPT262T2 PO; -QUET1TAB7 PO; -RANI1SYP PO; -SERO50TA PO
[2019-02-05 10:09] LABS: PERCENT SATURATION 18.8 % (13.2-45.0)
[2019-02-05 10:17] LABS: FOLATE 19.6 NG/ML (>5.4)
== END ==
PROVIDERS: ATTEND Student in an Organized Health Care Education/Training Program
DX: D64.9 Anemia, unspecified (principal); N18.3 Chronic kidney disease, stage 3 (moderate)

== ENCOUNTER → 2019-03-05 | Outpatient (REF) | payer MEDICARE ==
[2019-03-05 15:44] LABS: APPEARANCE, URINE HAZY (CLEAR); BACTERIA, URINE AUTO 2+ (NEGATIVE); BILIRUBIN, URINE AUTO NEGATIVE (NEGATIVE); BLOOD, URINE BLOOD 1+ (NEGATIVE); COLOR, URINE YELLOW (YELLOW); GLUCOSE, URINE (UA) AUTO NEGATIVE (NEGATIVE); KETONE, URINE AUTO NEGATIVE (NEGATIVE); LEUKOCYTE ESTERASE, URINE AUTO 2+ (NEGATIVE); MUCUS, URINE SMALL (NEGATIVE); NITRITE, URINE AUTO POSITIVE (NEGATIVE); PROTEIN, URINE AUTO NEGATIVE (NEGATIVE); RBC, URINE AUTO 5 /HPF (0-3); SPECIFIC GRAVITY URINE AUTO 1.012 (1.002-1.035); SQUAMOUS EPITHELIAL CELL UR AU 1 /HPF (0-6); UROBILINOGEN, URINE AUTO 0.2 mg/dL (0.0-2.0); WBC, URINE AUTO 86 /HPF (0-3)
== END ==
PROVIDERS: ATTEND Student in an Organized Health Care Education/Training Program
DX: R39.89 Other symptoms and signs involving the genitourinary system (principal)

== ENCOUNTER → 2019-03-20 | Outpatient (REF) | payer MEDICARE ==
[2019-03-20 12:11] LABS: CHOLESTEROL RISK RATIO 3.1 (<5); FREE T4 1.02 NG/DL (0.76-1.46); THYROID STIMULATING HORMONE 3.39 uIU/ML (0.358-3.740)
== END ==
PROVIDERS: ATTEND Student in an Organized Health Care Education/Training Program
DX: R53.83 Other fatigue (principal); Z13.220 Encounter for screening for lipoid disorders

== ENCOUNTER → 2019-05-01 | Outpatient (REF) | payer MEDICARE ==
[2019-05-01 11:01] LABS: BASO % 0.3 % (0.0-1.0); EOS # 0.4 10^3/uL (0.0-0.5); HEMATOCRIT 34.9 % (36.0-47.0); HEMOGLOBIN 11.4 g/dl (12.0-15.5); LYMPH % 28.2 % (24.0-44.0); MEAN CORPUSCULAR HEMOGLOBIN 33.7 pg (27.0-33.0); MEAN CORPUSCULAR HGB CONC 32.7 g/dl (32.0-36.5); MEAN CORPUSCULAR VOLUME 103.3 fl (80.0-96.0); MONO # 0.8 10^3/uL (0.0-0.8); MONO % 11.1 % (0.0-5.0); NEUTROPHILS # 3.9 10^3/uL (1.5-8.5); NEUTROPHILS % 54.1 % (36.0-66.0); PLATELET COUNT, AUTOMATED 216 10^3/uL (150-450); RED BLOOD COUNT 3.38 10^6/uL (4.00-5.40); WHITE BLOOD COUNT 7.2 10^3/uL (4.0-10.0)
[2019-05-01 11:07] LABS: ALBUMIN 3.5 GM/DL (3.2-5.2); BILIRUBIN,TOTAL 0.4 MG/DL (0.2-1.0); CALCIUM LEVEL 8.9 MG/DL (8.8-10.2); CREATININE FOR GFR 1.29 MG/DL (0.55-1.30); GLOMERULAR FILTRATION RATE 41.7 (>32); POTASSIUM SERUM 4.2 MEQ/L (3.5-5.1)
[2019-05-01 11:18] LABS: INR 1.06; PROTHROMBIN TIME 13.5 SECONDS (11.8-14.0)
[2019-05-01 11:19] LABS: PARTIAL THROMBOPLASTIN TIME 31.9 SECONDS (25.0-38.4)
== END ==
PROVIDERS: ATTEND Student in an Organized Health Care Education/Training Program
DX: K62.5 Hemorrhage of anus and rectum (principal)

== ENCOUNTER → 2019-06-11 | Outpatient (REF) | payer MEDICARE ==
[2019-06-11 11:10] LABS: APPEARANCE, URINE HAZY (CLEAR); BACTERIA, URINE AUTO 1+ (NEGATIVE); BILIRUBIN, URINE AUTO NEGATIVE (NEGATIVE); BLOOD, URINE BLOOD NEGATIVE (NEGATIVE); COLOR, URINE YELLOW (YELLOW); GLUCOSE, URINE (UA) AUTO NEGATIVE (NEGATIVE); KETONE, URINE AUTO NEGATIVE (NEGATIVE); LEUKOCYTE ESTERASE, URINE AUTO 1+ (NEGATIVE); NITRITE, URINE AUTO NEGATIVE (NEGATIVE); PROTEIN, URINE AUTO NEGATIVE (NEGATIVE); RBC, URINE AUTO 1 /HPF (0-3); SPECIFIC GRAVITY URINE AUTO 1.011 (1.002-1.035); SQUAMOUS EPITHELIAL CELL UR AU 1 /HPF (0-6); UROBILINOGEN, URINE AUTO 0.2 mg/dL (0.0-2.0); WBC, URINE AUTO 57 /HPF (0-3)
[2019-06-12 10:02] LABS: BASO % 0.3 % (0.0-1.0); EOS # 0.6 10^3/uL (0.0-0.5); EOS % 8.8 % (0.0-3.0); HEMATOCRIT 35.8 % (36.0-47.0); HEMOGLOBIN 11.6 g/dl (12.0-15.5); LYMPH # 2.4 10^3/uL (1.5-5.0); LYMPH % 38.4 % (24.0-44.0); MEAN CORPUSCULAR HEMOGLOBIN 33.7 pg (27.0-33.0); MEAN CORPUSCULAR HGB CONC 32.4 g/dl (32.0-36.5); MEAN CORPUSCULAR VOLUME 104.1 fl (80.0-96.0); MONO # 0.8 10^3/uL (0.0-0.8); MONO % 12.8 % (0.0-5.0); NEUTROPHILS # 2.5 10^3/uL (1.5-8.5); NEUTROPHILS % 39.4 % (36.0-66.0); PLATELET COUNT, AUTOMATED 222 10^3/uL (150-450); RED BLOOD COUNT 3.44 10^6/uL (4.00-5.40); WHITE BLOOD COUNT 6.2 10^3/uL (4.0-10.0)
[2019-06-12 10:35] LABS: ALBUMIN 3.6 GM/DL (3.2-5.2); CALCIUM LEVEL 9.1 MG/DL (8.8-10.2); CREATININE FOR GFR 1.54 MG/DL (0.55-1.30); PHOSPHORUS LEVEL 3.6 MG/DL (2.5-4.9); POTASSIUM SERUM 4.1 MEQ/L (3.5-5.1); URIC ACID 3.6 MG/DL (2.6-6.0)
== END ==
PROVIDERS: ATTEND Internal Medicine Nephrology
DX: N18.2 Chronic kidney disease, stage 2 (mild) (principal); M1A.30X0 Chronic gout due to renal impairment, unspecified site, without tophus (tophi)

== ENCOUNTER 2019-06-22 11:30 | Emergency (ER) | payer MEDICARE ==
[~2019-06-22] VITALS: Ht 162.6 cm; Wt 101.4 kg
--- NOTE | 2019-06-22 14:02 | REP ---
Clinical: Trauma. Technique: AP, cross-table lateral and oblique views of the femur. Findings: Visualized portions of the femur and knee demonstrate age-related degenerative changes and evidence of prior knee replacement. No obvious acute fracture or dislocation identified. Peripheral vascular disease noted. Impression: Visualized portions of the femur and knee without obvious acute fracture or dislocation. Electronically Signed by Duran Baugh MD 06/22/2019 01:53 P
--- NOTE | 2019-06-22 14:03 | REP ---
Clinical: Trauma/fall. Technique: Frontal view of the pelvis with neutral and frog lateral views of the right hip. Findings: Age-related degenerative changes are appreciated. Peripheral vascular disease noted. No obvious acute fracture or dislocation. Impression: No acute fracture dislocation identified. Electronically Signed by Duran Baugh MD 06/22/2019 01:54 P
[2019-06-22 14:30] VITALS: BP 163/71
== END 2019-06-22 15:13 | disposition home or self-care (01) ==
LOC: EDBD 11:30 → M ED 11:30
DX: S70.01XA Contusion of right hip, initial encounter (principal); W08.XXXA Fall from other furniture, initial encounter; Y92.099 Unspecified place in other non-institutional residence as the place of occurrence of the external cause; Y93.89 Activity, other specified; Y99.9 Unspecified external cause status; I48.91 Unspecified atrial fibrillation; I10 Essential (primary) hypertension; I50.9 Heart failure, unspecified; K21.9 Gastro-esophageal reflux disease without esophagitis; Z98.61 Coronary angioplasty status; Z79.82 Long term (current) use of aspirin; Z79.899 Other long term (current) drug therapy; Z91.89 Other specified personal risk factors, not elsewhere classified; Z88.8 Allergy status to other drugs, medicaments and biological substances

== ENCOUNTER → 2019-08-13 | Outpatient (REF) | payer MEDICARE ==
[~2019-08-13] MED LIST changes: +FLON1SPR; +MICO2CRE42 TOP; +MILKSUS21 PO; +PEPT262T2 PO; +RANI1SYP PO; +SERO50TA PO
== END ==
PROVIDERS: ATTEND Family Medicine
DX: R60.9 Edema, unspecified (principal)

== ENCOUNTER → 2019-08-23 | Outpatient (REF) | payer MEDICARE ==
[2019-08-23 15:47] LABS: CALCIUM LEVEL 9.1 MG/DL (8.8-10.2); CREATININE FOR GFR 1.64 MG/DL (0.55-1.30); GLOMERULAR FILTRATION RATE 31.6 (>32); POTASSIUM SERUM 4.9 MEQ/L (3.5-5.1)
== END ==
PROVIDERS: ATTEND Family Medicine
DX: R60.9 Edema, unspecified (principal)

== ENCOUNTER 2019-08-31 17:55 | Emergency (ER) | payer MEDICARE ==
[~2019-08-31 17:55] MED LIST changes: -FLON1SPR; +FLON1SPR NARES
[2019-08-31] MEDS ORDERED: NS 1,000 ML IV SCH (18:11)
--- NOTE | 2019-08-31 18:43 | REPVR ---
PROCEDURE INFORMATION: Exam: CT Head Without Contrast Exam date and time: 08/31/2019 6:15 PM Age: 84 years old Clinical indication: Altered mental status/memory loss TECHNIQUE: Imaging protocol: Computed tomography of the head without contrast. Axial and coronal reformatted images were created and reviewed. Radiation optimization: All CT scans at this facility use at least one of these dose optimization techniques: automated exposure control; mA and/or kV adjustment per patient size (includes targeted exams where dose is matched to clinical indication); or iterative reconstruction. COMPARISON: CT Head without contrast 08/23/2018 11:32 AM FINDINGS: Brain: Patchy areas of hypoattenuation in the periventricular and subcortical white matter, consistent with chronic small vessel ischemic disease. No CT evidence of acute intracranial hemorrhage or acute territorial infarction. No significant mass effect or midline shift. Basal cisterns patent. Ventricles: Prominence of the cortical sulci, cisterns and ventricular system, consistent with cerebral and cerebellar volume loss. Bones/joints: No acute osseous abnormality. Sinuses: Minimal ethmoid mucosal thickening. Mastoid air cells: Grossly unremarkable. Soft tissues: Right frontotemporal scalp injury. IMPRESSION: 1. No CT evidence of acute intracranial pathology. 2. Additional findings, as above. Electronically signed by: Zia Trotter On 08/31/2019 18:42:41 PM
[2019-08-31 18:51] LABS: BASO % 0.3 % (0.0-1.0); EOS # 0.7 10^3/uL (0.0-0.5); EOS % 8.9 % (0.0-3.0); HEMOGLOBIN 11.2 g/dl (12.0-15.5); LYMPH # 2.2 10^3/uL (1.5-5.0); LYMPH % 28.6 % (24.0-44.0); MEAN CORPUSCULAR HEMOGLOBIN 32.3 pg (27.0-33.0); MEAN CORPUSCULAR HGB CONC 31.1 g/dl (32.0-36.5); MEAN CORPUSCULAR VOLUME 103.7 fl (80.0-96.0); MONO # 0.9 10^3/uL (0.0-0.8); MONO % 11.3 % (0.0-5.0); NEUTROPHILS # 3.9 10^3/uL (1.5-8.5); NEUTROPHILS % 50.8 % (36.0-66.0); PLATELET COUNT, AUTOMATED 195 10^3/uL (150-450); RED BLOOD COUNT 3.47 10^6/uL (4.00-5.40); WHITE BLOOD COUNT 7.8 10^3/uL (4.0-10.0)
--- NOTE | 2019-08-31 18:51 | REPVR ---
PROCEDURE INFORMATION: Exam: CT Cervical Spine Without Contrast Exam date and time: 08/31/2019 6:15 PM Age: 84 years old Clinical indication: Injury or trauma; Fall; Initial encounter; Blunt trauma; Additional info: Altered mental status TECHNIQUE: Imaging protocol: Computed tomography images of the cervical spine without contrast. Axial, coronal and sagittal reformatted images were created and reviewed. Radiation optimization: All CT scans at this facility use at least one of these dose optimization techniques: automated exposure control; mA and/or kV adjustment per patient size (includes targeted exams where dose is matched to clinical indication); or iterative reconstruction. COMPARISON: No relevant prior studies available. FINDINGS: Vertebrae: Normal cervical lordosis. Mild retrolisthesis of C3 on C4, C4 on C5, C5 on C6 and C6 on C7. Alignment otherwise anatomic. Mild levoscoliosis. No CT evidence of acute fracture, dislocation or subluxation. Vertebral body heights maintained. Discs/Spinal canal/Neural foramina: Mild multilevel degenerative changes, characterized by disc space narrowing, osteophytosis and uncovertebral and facet joint hypertrophy. Mild multilevel spinal canal and neural foraminal narrowing. Soft tissues: Grossly unremarkable. Lungs: Grossly unremarkable. IMPRESSION: 1. No CT evidence of acute cervical spine traumatic injury. 2. Additional findings, as above. Electronically signed by: Zia Trotter On 08/31/2019 18:51:30 PM
[2019-08-31] MEDS ORDERED: RANI15TA PO (19:01)
[2019-08-31] MEDS ORDERED: ISOS30TA4 PO (19:01)
[2019-08-31] MEDS ORDERED: QUET1TAB7 PO (19:01)
[2019-08-31] MEDS ORDERED: FURO40TA2 PO (19:01)
[2019-08-31 19:03] LABS: INR 1.01
[2019-08-31 19:07] VITALS: BP 186/81
[2019-08-31 19:22] LABS: ACETAMINOPHEN LEVEL < 2.0 UG/ML (10.0-30.0); ALBUMIN 3.7 GM/DL (3.2-5.2); ALT/SGPT 27 U/L (12-78); BILIRUBIN,DIRECT 0.1 MG/DL (0.0-0.2); BILIRUBIN,TOTAL 0.3 MG/DL (0.2-1.0); BLOOD UREA NITROGEN 40 MG/DL (7-18); CALCIUM LEVEL 8.5 MG/DL (8.8-10.2); CARBON DIOXIDE LEVEL 23 MEQ/L (21-32); CHLORIDE LEVEL 107 MEQ/L (98-107); CK-MB VALUE MASS 1.8 NG/ML (<3.6); CPK CREATINE PHOSPHOKINASE 149 U/L (26-192); CREATININE FOR GFR 1.72 MG/DL (0.55-1.30); ETHYL ALCOHOL (ETHANOL) 0.003 % (0.000-0.010); GLOMERULAR FILTRATION RATE 29.9 (>32); GLUCOSE, FASTING 101 MG/DL (70-100); MB/CK RELATIVE INDEX 1.21 (< OR =4); POTASSIUM SERUM 4.6 MEQ/L (3.5-5.1); SALICYLATE LEVEL < 1.7 MG/DL (5.0-30.0); SODIUM LEVEL 139 MEQ/L (136-145); TOTAL PROTEIN 7.4 GM/DL (6.4-8.2); TROPONIN I < 0.02 NG/ML (< 0.10)
--- NOTE | 2019-09-01 08:03 | REP ---
BILATERAL ELBOWS: Four views of bilateral elbows performed. No acute fracture or dislocation is seen. There is mild spurring of the proximal ulnas bilaterally. Electronically Signed by Shabbir Gomez MD 09/01/2019 09:40 A
--- NOTE | 2019-09-01 09:57 | REP ---
CHEST, SINGLE VIEW: Comparison 08/23/2018. There is no acute infiltrate. There is somewhat poor ventilation. The right hemidiaphragm is mildly elevated. Cardiac silhouette is mildly prominent. The mediastinal silhouette is unchanged. Mild calcification of the thoracic aorta. IMPRESSION: No acute infiltrate. Electronically Signed by Shabbir Gomez MD 09/01/2019 10:31 A
--- NOTE | 2019-09-01 20:36 | ECGEPIP ---
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
== END 2019-08-31 20:33 | disposition home or self-care (01) ==
LOC: EDBD 17:55 → M ED 17:55
DX: S09.90XA Unspecified injury of head, initial encounter (principal); S01.01XA Laceration without foreign body of scalp, initial encounter; S51.001A Unspecified open wound of right elbow, initial encounter; S51.002A Unspecified open wound of left elbow, initial encounter; T14.8XXA Other injury of unspecified body region, initial encounter; W19.XXXA Unspecified fall, initial encounter; Y92.099 Unspecified place in other non-institutional residence as the place of occurrence of the external cause; Y93.9 Activity, unspecified; Y99.9 Unspecified external cause status; I44.0 Atrioventricular block, first degree; I45.89 Other specified conduction disorders; I10 Essential (primary) hypertension; I51.9 Heart disease, unspecified; Z79.82 Long term (current) use of aspirin; Z79.899 Other long term (current) drug therapy; Z91.89 Other specified personal risk factors, not elsewhere classified; Z88.8 Allergy status to other drugs, medicaments and biological substances
CPT/HCPCS: 70450; 71045; 72125; 73080; 80048; 80076; 82550; 82553; 84443; 84484; 85025; 85610; 93005; 93041; 94760; 99285; G0480

== ENCOUNTER → 2019-09-11 | Outpatient (REF) | payer MEDICARE ==
[~2019-09-11] MED LIST changes: +QUET1TAB7 PO
[2019-09-11 12:03] LABS: BASO % 0.4 % (0.0-1.0); EOS # 0.7 10^3/uL (0.0-0.5); EOS % 10.4 % (0.0-3.0); HEMATOCRIT 36.4 % (36.0-47.0); HEMOGLOBIN 11.4 g/dl (12.0-15.5); LYMPH # 2.4 10^3/uL (1.5-5.0); LYMPH % 36.1 % (24.0-44.0); MEAN CORPUSCULAR HEMOGLOBIN 32.9 pg (27.0-33.0); MEAN CORPUSCULAR HGB CONC 31.3 g/dl (32.0-36.5); MEAN CORPUSCULAR VOLUME 105.2 fl (80.0-96.0); MONO # 0.8 10^3/uL (0.0-0.8); NEUTROPHILS # 2.8 10^3/uL (1.5-8.5); PLATELET COUNT, AUTOMATED 209 10^3/uL (150-450); RED BLOOD COUNT 3.46 10^6/uL (4.00-5.40); WHITE BLOOD COUNT 6.7 10^3/uL (4.0-10.0)
[2019-09-11 12:44] LABS: ALBUMIN 3.8 GM/DL (3.2-5.2); CREATININE FOR GFR 1.84 MG/DL (0.55-1.30); GLOMERULAR FILTRATION RATE 27.7 (>32); PHOSPHORUS LEVEL 3.5 MG/DL (2.5-4.9); POTASSIUM SERUM 4.5 MEQ/L (3.5-5.1); URIC ACID 3.6 MG/DL (2.6-6.0)
== END ==
PROVIDERS: ATTEND Internal Medicine Nephrology
DX: N18.2 Chronic kidney disease, stage 2 (mild) (principal); M1A.30X0 Chronic gout due to renal impairment, unspecified site, without tophus (tophi)

== ENCOUNTER → 2019-09-17 | Outpatient (REF) | payer MEDICARE ==
[2019-09-18 10:02] LABS: ALBUMIN 3.3 GM/DL (3.2-5.2); BILIRUBIN,TOTAL 0.3 MG/DL (0.2-1.0); CALCIUM LEVEL 8.7 MG/DL (8.8-10.2); CREATININE FOR GFR 1.56 MG/DL (0.55-1.30); GLOMERULAR FILTRATION RATE 33.5 (>32); POTASSIUM SERUM 5.4 MEQ/L (3.5-5.1); TOTAL PROTEIN 6.7 GM/DL (6.4-8.2)
== END ==
PROVIDERS: ATTEND Family Medicine
DX: R60.9 Edema, unspecified (principal)

== ENCOUNTER → 2019-09-19 | Outpatient (REF) | payer MEDICARE ==
[2019-09-19 12:41] LABS: ALBUMIN 3.8 GM/DL (3.2-5.2); CALCIUM LEVEL 8.9 MG/DL (8.8-10.2); CREATININE FOR GFR 1.73 MG/DL (0.55-1.30); GLOMERULAR FILTRATION RATE 29.7 (>32); MAGNESIUM LEVEL 2.4 MG/DL (1.8-2.4); PHOSPHORUS LEVEL 4.3 MG/DL (2.5-4.9); POTASSIUM SERUM 4.3 MEQ/L (3.5-5.1)
== END ==
PROVIDERS: ATTEND Family Medicine
DX: E87.5 Hyperkalemia (principal)

== ENCOUNTER → 2019-10-25 | Outpatient (REF) | payer MEDICARE ==
[~2019-10-25] MED LIST changes: -FLUO20CA19 PO; +FLUO20CA22 PO
[2019-10-25 09:54] LABS: BASO % 0.5 % (0.0-1.0); EOS # 0.5 10^3/uL (0.0-0.5); EOS % 8.4 % (0.0-3.0); HEMATOCRIT 30.5 % (36.0-47.0); LYMPH # 2.1 10^3/uL (1.5-5.0); LYMPH % 36.5 % (24.0-44.0); MEAN CORPUSCULAR HEMOGLOBIN 33.8 pg (27.0-33.0); MEAN CORPUSCULAR HGB CONC 32.8 g/dl (32.0-36.5); MONO # 0.7 10^3/uL (0.0-0.8); MONO % 11.5 % (0.0-5.0); NEUTROPHILS # 2.5 10^3/uL (1.5-8.5); NEUTROPHILS % 42.9 % (36.0-66.0); PLATELET COUNT, AUTOMATED 177 10^3/uL (150-450); RED BLOOD COUNT 2.96 10^6/uL (4.00-5.40); WHITE BLOOD COUNT 5.8 10^3/uL (4.0-10.0)
[2019-10-25 10:22] LABS: ALBUMIN 3.2 GM/DL (3.2-5.2); CALCIUM LEVEL 8.7 MG/DL (8.8-10.2); CREATININE FOR GFR 2.04 MG/DL (0.55-1.30); GLOMERULAR FILTRATION RATE 24.6 (>32); PHOSPHORUS LEVEL 4.2 MG/DL (2.5-4.9); POTASSIUM SERUM 4.7 MEQ/L (3.5-5.1); URIC ACID 3.6 MG/DL (2.6-6.0)
[2019-10-25 13:33] LABS: APPEARANCE, URINE CLEAR (CLEAR); BACTERIA, URINE AUTO 2+ (NEGATIVE); BILIRUBIN, URINE AUTO NEGATIVE (NEGATIVE); BLOOD, URINE BLOOD NEGATIVE (NEGATIVE); COLOR, URINE YELLOW (YELLOW); GLUCOSE, URINE (UA) AUTO NEGATIVE (NEGATIVE); KETONE, URINE AUTO NEGATIVE (NEGATIVE); LEUKOCYTE ESTERASE, URINE AUTO TRACE (NEGATIVE); NITRITE, URINE AUTO NEGATIVE (NEGATIVE); PROTEIN, URINE AUTO NEGATIVE (NEGATIVE); RBC, URINE AUTO 0 /HPF (0-3); SQUAMOUS EPITHELIAL CELL UR AU 0 /HPF (0-6); UROBILINOGEN, URINE AUTO 0.2 mg/dL (0.0-2.0); WBC, URINE AUTO 14 /HPF (0-3)
== END ==
PROVIDERS: ATTEND Internal Medicine Nephrology
DX: I50.32 Chronic diastolic (congestive) heart failure (principal)

== ENCOUNTER → 2019-11-29 | Outpatient (REF) | payer MEDICARE ==
[2019-11-29 12:27] LABS: BASO % 0.4 % (0.0-1.0); EOS # 0.7 10^3/uL (0.0-0.5); EOS % 8.8 % (0.0-3.0); HEMATOCRIT 33.5 % (36.0-47.0); HEMOGLOBIN 10.8 g/dl (12.0-15.5); LYMPH # 2.9 10^3/uL (1.5-5.0); LYMPH % 37.6 % (24.0-44.0); MEAN CORPUSCULAR HEMOGLOBIN 32.9 pg (27.0-33.0); MEAN CORPUSCULAR HGB CONC 32.2 g/dl (32.0-36.5); MEAN CORPUSCULAR VOLUME 102.1 fl (80.0-96.0); MONO # 0.8 10^3/uL (0.0-0.8); MONO % 10.7 % (0.0-5.0); NEUTROPHILS # 3.2 10^3/uL (1.5-8.5); NEUTROPHILS % 42.2 % (36.0-66.0); PLATELET COUNT, AUTOMATED 197 10^3/uL (150-450); RED BLOOD COUNT 3.28 10^6/uL (4.00-5.40); WHITE BLOOD COUNT 7.6 10^3/uL (4.0-10.0)
[2019-11-29 12:46] LABS: ALBUMIN 3.6 GM/DL (3.2-5.2); CALCIUM LEVEL 8.9 MG/DL (8.8-10.2); CREATININE FOR GFR 2.31 MG/DL (0.55-1.30); GLOMERULAR FILTRATION RATE 21.3 (>32); MAGNESIUM LEVEL 2.3 MG/DL (1.8-2.4); PHOSPHORUS LEVEL 3.8 MG/DL (2.5-4.9); POTASSIUM SERUM 4.3 MEQ/L (3.5-5.1); URIC ACID 3.4 MG/DL (2.6-6.0)
[2019-11-29 12:56] LABS: APPEARANCE, URINE CLOUDY (CLEAR); BACTERIA, URINE AUTO 2+ (NEGATIVE); BILIRUBIN, URINE AUTO NEGATIVE (NEGATIVE); BLOOD, URINE BLOOD NEGATIVE (NEGATIVE); COLOR, URINE YELLOW (YELLOW); GLUCOSE, URINE (UA) AUTO NEGATIVE (NEGATIVE); KETONE, URINE AUTO NEGATIVE (NEGATIVE); LEUKOCYTE ESTERASE, URINE AUTO 3+ (NEGATIVE); MUCUS, URINE SMALL (NEGATIVE); NITRITE, URINE AUTO NEGATIVE (NEGATIVE); PROTEIN, URINE AUTO NEGATIVE (NEGATIVE); RBC, URINE AUTO 1 /HPF (0-3); SPECIFIC GRAVITY URINE AUTO 1.013 (1.002-1.035); SQUAMOUS EPITHELIAL CELL UR AU 4 /HPF (0-6); UROBILINOGEN, URINE AUTO 0.2 mg/dL (0.0-2.0); WBC, URINE AUTO TNTC /HPF (0-3)
== END ==
PROVIDERS: ATTEND Internal Medicine Nephrology
DX: N17.9 Acute kidney failure, unspecified (principal); M1A.30X0 Chronic gout due to renal impairment, unspecified site, without tophus (tophi)

== ENCOUNTER 2019-12-19 09:03 | Observation (INO) | payer MEDICARE ==
[~2019-12-19] VITALS: Ht 162.6 cm; Wt 97.1 kg
[2019-12-19 10:01] LABS: BASO % 0.2 % (0.0-1.0); EOS # 0.6 10^3/uL (0.0-0.5); HEMOGLOBIN 11.4 g/dl (12.0-15.5); LYMPH % 36.5 % (24.0-44.0); MEAN CORPUSCULAR HEMOGLOBIN 34.1 pg (27.0-33.0); MEAN CORPUSCULAR HGB CONC 33.5 g/dl (32.0-36.5); MEAN CORPUSCULAR VOLUME 101.8 fl (80.0-96.0); MONO # 0.7 10^3/uL (0.0-0.8); MONO % 8.8 % (0.0-5.0); NEUTROPHILS # 3.9 10^3/uL (1.5-8.5); NEUTROPHILS % 47.4 % (36.0-66.0); PLATELET COUNT, AUTOMATED 175 10^3/uL (150-450); RED BLOOD COUNT 3.34 10^6/uL (4.00-5.40); WHITE BLOOD COUNT 8.2 10^3/uL (4.0-10.0)
[2019-12-19] MEDS ORDERED: ZEAS2POW4 TOP (10:11)
[2019-12-19] MEDS ORDERED: FAMO40TA3 PO (10:11)
[2019-12-19] MEDS ORDERED: TORS20TA2 PO (10:11)
--- NOTE | 2019-12-19 10:36 | REP ---
CT BRAIN WITHOUT CONTRAST: HISTORY: Injury in a fall. Comparison head CT study August 31, 2019. CT FINDINGS: Digital preliminary tree scout radiographs are unremarkable. The bony calvarium is intact. No skull fractures seen. No significant scalp hematoma is appreciated. There is minimal generalized volume loss. Vascular calcifications noted in the distal internal carotid arteries bilaterally and to a lesser extent, in the distal vertebral arteries. There is some periventricular low density consistent with microvascular ischemic changes. This is unchanged. There is no evidence of intracranial hemorrhage. No mass, extra-axial fluid collection, acute infarction, or midline shift is seen. IMPRESSION: Vascular calcification, mild generalized volume loss, small vessel changes. No acute intracranial abnormality. No skull fracture or intracranial injury seen. Electronically Signed by Richie Gibson MD 12/19/2019 11:39 A
--- NOTE | 2019-12-19 10:38 | REP ---
CT STUDY OF THE CERVICAL SPINE WITHOUT CONTRAST: HISTORY: Injury in a fall. Comparison CT study of the cervical spine August 31, 2019. TECHNIQUE: Helical scanning is acquired and overlapping 2 mm high resolution axial images were generated and reviewed at bone and soft tissue window settings. Coronal and sagittal multiplanar re-formations images are generated. CT FINDINGS: There is no evidence of cervical spine element fracture. No skull base fracture is seen. Cervical vertebral body heights are preserved. Alignment is normal. Facet joints are normally aligned bilaterally at each cervical level on multiplanar re-formations images. There is no evidence of intraspinal or paraspinal hematoma. No extra vertebral abnormality is seen. There are degenerative spondylosis changes. Degenerative disc findings are most pronounced at C4-5, C5-6, and C6-7. There are advanced osteoarthritic changes at the articulation between the dens and the anterior arch of C1. There is facet joint osteoarthritis mild in degree. There is uncovertebral spurring on the right at C3-4, on the left at C4-5, and minimally and bilaterally at C5-6. IMPRESSION: Degenerative spondylosis changes. No traumatic abnormality noted. No fracture seen. Electronically Signed by Richie Gibson MD 12/19/2019 11:39 A
[2019-12-19 10:42] LABS: BLOOD UREA NITROGEN 97 MG/DL (7-18); CARBON DIOXIDE LEVEL 26 MEQ/L (21-32); CHLORIDE LEVEL 101 MEQ/L (98-107); CK-MB VALUE MASS 3.8 NG/ML (<3.6); CPK CREATINE PHOSPHOKINASE 237 U/L (26-192); CREATININE FOR GFR 3.24 MG/DL (0.55-1.30); GLOMERULAR FILTRATION RATE 14.4 (>32); GLUCOSE, FASTING 141 MG/DL (70-100); POTASSIUM SERUM 4.1 MEQ/L (3.5-5.1); SODIUM LEVEL 134 MEQ/L (136-145); TROPONIN I < 0.02 NG/ML (< 0.10)
[2019-12-19] MEDS: NS 1,000 ML IV SCH (11:36)
[2019-12-19] MEDS ORDERED: NYSTATIN 100,000 UNITS/GM TOPICAL PWD 15 GM TOP PRN (12:30)
[2019-12-19] MEDS ORDERED: MOM 30ML SUSPENSION UDC PO PRN (12:30)
[2019-12-19] MEDS ORDERED: ACETAMINOPHEN TAB 650MG DOSE (2X325MG) PO PRN (12:30)
[2019-12-19] MEDS ORDERED: METOPROLOL TART 25 MG TABLET PO ONE (13:00)
[2019-12-19 13:30] VITALS: BP 143/49
[2019-12-19] MEDS: FLUoxetine 20 MG CAP PO SCH (14:58)
[2019-12-19] MEDS: ASPIRIN 81 MG ENTERIC TAB PO SCH (14:58)
[2019-12-19] MEDS: allopurinoL 300 MG TAB PO SCH (14:59)
[2019-12-19] MEDS: FLECAINIDE 50MG TABLET PO SCH ×2 (15:06→21:22)
[2019-12-19] MEDS: POLYVINYL ALCOHOL OPHTH SOLN 15 ML(LIQUITEARS) OU SCH ×2 (17:20→21:22)
--- NOTE | 2019-12-19 20:00 | HPEPDOC ---
[facility] Medical History & Physical Date of Admission Dec 19, 2019 Date of Service: Dec 19, 2019 Attending Physician: DARLING MCLEAN MD History and Physical CHIEF COMPLAINT: Fall and found to have an JEM HISTORY OF PRESENT ILLNESS: 84-year-old W is resident of [facility] who presented today after a fall. In the ED, she was hemodynamically stable, afebrile, breathing comforta rajat on room air and mentating at baseline of AOx3 without pain complaints. Work up was notable for Cr of 3.24 from baseline of 2, BUN 97, WBC 8.2, hgb 11.4, platelets 175, na 134, K 4.1. CT head did not show any acute intracranial abnormalities while CT C-spine showed degenerative spondylosis without acute fracture. She is now being admitted to medicine for JEM and PT/OT evaluation. PAST MEDICAL HISTORY: Depression MARIVEL non compliant with CPAP Hyperlipidemia. Essential hypertension. Obesity. Hypothyroidism. Gout. GERD History skin cancer. Osteoarthritis HFpEF PAST SURGICAL HISTORY: Tonsillectomy. Partial hysterectomy with unilateral nephrectomy. Cholecystectomy. Right knee replacement. Colonoscopy with diverticulosis SOCIAL HISTORY: Lives a [facility]. No alcohol, smoking or illicit drugs FAMILY HISTORY: Noncontributory ALLERGIES: Please see below. Review of Systems: CONSTITUTIONAL: No fevers, denies chills HEENT: No rhinorrhea, congestion, cough CARDIOVASCULAR: No murmurs or chest pain RESPIRATORY: Not cough, No SOB or pleurisy GASTROINTESTINAL: No nausea, no vomiting, no diarrhea NEURO: No noted weakness, ambulates with assistive devices, no dizziness, vision changes, asymmetrical strength loss : No dysuria, hematuria Physical Examination: GENERAL APPEARANCE: Alert, obese, NAD HEENT: NCAT, PERRLA, EOMI, anicteric NECK: supple, no noted JVD LUNGS: CTAB, diminished bases, but not crackles, wheezing or rhonchi. HEART: RRR, no mrg ABDOMEN: Soft. No masses. Bowel sounds are present. EXTREMITIES: Chronic venous stasis change of bilateral extremity. 2+ pitting ed josefina bilateral lower extremity, reported to be chronic LABORATORY DATA: See above IMAGING: see above MICROBIOLOGY: Please see below. Plan: JEM on CKD: likely prerenal in the setting of volume depletion -gentle fluids at 70cc/hr given history of CHF -monitor BUN and Cr Fall: -has a history of falls with resistance to working with PT, likely deconditioned and could use PT -check orthostatic vitals x 2, once today, once tomorrow AM -PT/OT evaluation -CT head and neck without acute fractures MARIVEL -Patient refuses to wear CPAP machine Chronic HFpEF: Last 2014 TTE showed Left mild ventricle hypertrophy with grossly preserved left ventricular systolic function and grade 1 diastolic dysfunction, aortic sclerosis resulting intramural aortic stenosis, normal central venous pressure, normal or mildly elevated pulmonary artery pressure. -has chronic LE edema but at this time does not appear to be fluid overloaded -Hold home torsemide/aldactone with ongoing JEM and likely volume depletion Depression -Continue home fluoxetine and seroquel Hypothyroidism -Continue synthroid Hypertension -Continue home metop history of tachyarrythmia? -continue metop, fleicanide HLD: -continue lipitor Gout: -continue home allopurinol GERD -Continue home PPI DVT -Levonox and compression stocking Dispo: medsurg Vital Signs Vital Signs Date Time Temp Pulse Resp B/P (MAP) Pulse Ox O2 Delivery O2 Flow Rate FiO2 12/19/19 15:01 64 137/52 12/19/19 13:30 96.7 22 97 12/19/19 12:33 Room Air Laboratory Data Labs 24H Laboratory Tests 2 12/19/19 09:15: Immature Granulocyte % (Auto) 0.1, Neutrophils (%) (Auto) 47.4, Lymphocytes (%) (Auto) 36.5, Monocytes (%) (Auto) 8.8H, Eosinophils (%) (Auto) 7.0H, Basophils (%) (Auto) 0.2, Neutrophils # (Auto) 3.9, Lymphocytes # (Auto) 3.0, Monocytes # (Auto) 0.7, Eosinophils # (Auto) 0.6H, Basophils # (Auto) 0.0, Nucleated Red Blood Cells % (auto) 0.0, Anion Gap 7L, Glomerular Filtration Rate 14.4L, Calcium Level 10.0, Total Creatine Kinase 237H, Creatine Kinase MB 3.8H, Creatine Kinase MB Relative Index 1.60, Troponin I < 0.02, Thyroid Stimulating Hormone (TSH) 1.420 12/19/19 09:44: Bedside Glucose (Misc Panel) 142H CBC/BMP Laboratory Tests 12/19/19 09:15 Home Medications Scheduled Acetaminophen (Acetaminophen) 500 Mg Tab, 500 MG PO BID Allopurinol (Zyloprim) 300 Mg Tab, 300 MG PO DAILY Aspirin (Aspirin EC) 81 Mg Tab, 81 MG PO DAILY Atorvastatin Calcium (Lipitor) 10 Mg Tab, 10 MG PO QHS Azelastine HCl (Azelastine HCl) 0.1 % Spr, 1 SPRAY NARES BID Famotidine (Famotidine) 40 Mg Tablet, 40 MG PO QHS Flecainide Acetate (Flecainide Acetate) 50 Mg Tab, 50 MG PO BID Fluoxetine Hcl (Fluoxetine HCl) 20 Mg Cap, 20 MG PO DAILY TAKES WITH 40MG DOSE Fluoxetine Hcl (Fluoxetine HCl) 40 Mg Cap, 40 MG PO DAILY TAKES WITH 20MG DOSE Fluticasone Propionate (Flonase Allergy Relief) 9.9 Ml [place].susp, 1 SPRAYS NARES BID Levothyroxine Sodium (Levothyroxine Sodium) 50 Mcg Tab, 50 MCG PO DAILY Metoprolol Tartrate (Metoprolol Tartrate) 25 Mg Tab, 12.5 MG PO BID Miconazole Nitrate (Zeasorb AF) 71 Gm Powder, 1 APLCT TOP DAILY UNDER BREASTS, ABDOMEN Propylene Glycol/Peg 400 (Systane 0.3-0.4% Eye Drops) 15 Ml Evi, 1 DROP OU QID Quetiapine Fumarate (Seroquel) 50 Mg Tablet, 50 MG PO QHS Spironolactone (Spironolactone) 25 Mg Tab, 25 MG PO DAILY Torsemide (Torsemide) 20 Mg Tablet, 40 MG PO DAILY Scheduled PRN Acetaminophen (Acetaminophen) 325 Mg Tab, 650 MG PO Q4H PRN for PAIN Bismuth Subsalicylate (Pepto-Bismol) 262 Mg Tablet, 524 MG PO Q4H PRN for DIARRHEA Magnesium Hydroxide (Milk of Magnesia) 400 Mg/5 Ml Oral.susp, 1,200 MG PO DAILY PRN for CONSTIPATION Nystatin (Nystatin Powder) 100,000 Unit/Gm Pow, 1 APLCT TOP DAILY PRN for RASH UNDER LEFT BREAST Allergies Coded Allergies: TAPE (Verified Allergy, Intermediate, RASH, 07/23/19) dabigatran etexilate (Verified Allergy, Unknown, 07/23/19) meperidine (Verified Adverse Reaction, Mild, VOMITING, 07/23/19) A-FIB/CHADSVASC A-FIB History Current/History of A-Fib/PAF?: No Current PO Anticoag Therapy: No Age/Risk Factor Scoring CHADSVASC: CHADSVASC Response (Comments) Value Age Risk Factor Age >/= 75 years old 2 Gender Risk Factor Female 1 Hx of CHF Yes 1 Hx of HTN Yes 1 Hx of Stroke/TIA/or VTE No 0 Hx of Diabetes No 0 Hx of Vascular Disease No 0 Total 5 Treatment Treatment ordered: NONE Reason Anticoagulant not given: Not indicated/[id number] DARLING MCLEAN MD Dec 19, 2019 20:00
[2019-12-19] MEDS: AZELASTINE 137MCG NASAL SPY 30 ML (ASTELIN) SCH ×2 (21:00→21:22)
[2019-12-19] MEDS: FLUTICASONE PROP 0.05% NASAL SPRAY 16 GM (FLONASE) NARES SCH ×2 (21:00→21:22)
[2019-12-19] MEDS: ACETAMINOPHEN 500 MG TAB PO SCH (21:21)
[2019-12-19] MEDS: HEPARIN SOD (PORCINE) 5000UNITS/ML VIAL (J1644 PER 1000UNITS) SC SCH (21:21)
[2019-12-19] MEDS: METOPROLOL TART 12.5 MG PER 1/2 TAB PO SCH (21:22)
[2019-12-19] MEDS: ATORVASTATIN 10 MG TAB PO SCH (21:22)
[2019-12-19] MEDS: QUEtiapine FUMARATE 50 MG TAB PO SCH (21:22)
[2019-12-19 22:00] VITALS: BP 155/62
[2019-12-20] MEDS: NS 1,000 ML IV SCH (01:38)
--- NOTE | 2019-12-20 01:51 | ECGEPIP ---
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
[2019-12-20] MEDS: LEVOTHYROXINE 50MCG TABLET (0.05MG) PO SCH (05:30)
[2019-12-20 06:00] VITALS: BP 162/64
[2019-12-20 08:40] LABS: HEMATOCRIT 33.5 % (36.0-47.0); HEMOGLOBIN 10.8 g/dl (12.0-15.5); MEAN CORPUSCULAR HEMOGLOBIN 33.4 pg (27.0-33.0); MEAN CORPUSCULAR HGB CONC 32.2 g/dl (32.0-36.5); MEAN CORPUSCULAR VOLUME 103.7 fl (80.0-96.0); PLATELET COUNT, AUTOMATED 174 10^3/uL (150-450); RED BLOOD COUNT 3.23 10^6/uL (4.00-5.40); WHITE BLOOD COUNT 6.8 10^3/uL (4.0-10.0)
[2019-12-20] MEDS ORDERED: FLUoxetine 20 MG CAP PO SCH (09:00)
[2019-12-20 09:04] LABS: CREATININE FOR GFR 2.38 MG/DL (0.55-1.30); GLOMERULAR FILTRATION RATE 20.6 (>32); MAGNESIUM LEVEL 2.5 MG/DL (1.8-2.4); POTASSIUM SERUM 4.4 MEQ/L (3.5-5.1)
[2019-12-20] MEDS: FLUoxetine 20 MG CAP PO SCH (09:14)
[2019-12-20] MEDS: HEPARIN SOD (PORCINE) 5000UNITS/ML VIAL (J1644 PER 1000UNITS) SC SCH ×2 (09:14→20:26)
[2019-12-20] MEDS: ASPIRIN 81 MG ENTERIC TAB PO SCH (09:15)
[2019-12-20] MEDS: MICONAZOLE 2 % POWDER (DESENEX) TOP SCH (09:15)
[2019-12-20] MEDS: POLYVINYL ALCOHOL OPHTH SOLN 15 ML(LIQUITEARS) OU SCH ×4 (09:16→20:26)
[2019-12-20] MEDS: FLUTICASONE PROP 0.05% NASAL SPRAY 16 GM (FLONASE) NARES SCH ×2 (09:18→20:26)
[2019-12-20] MEDS: AZELASTINE 137MCG NASAL SPY 30 ML (ASTELIN) SCH ×2 (09:18→20:26)
[2019-12-20] MEDS: allopurinoL 300 MG TAB PO SCH (09:19)
[2019-12-20] MEDS: ACETAMINOPHEN 500 MG TAB PO SCH ×2 (09:20→20:26)
[2019-12-20] MEDS ORDERED: cefTRIAXone SOD 2 GM VIAL (J0696 PER 250MG) IM SCH (09:45)
[2019-12-20] MEDS: METOPROLOL TART 12.5 MG PER 1/2 TAB PO SCH ×2 (10:30→20:27)
[2019-12-20] MEDS: FLECAINIDE 50MG TABLET PO SCH ×2 (10:30→20:25)
[2019-12-20] MEDS: CEPHALEXIN 250MG CAPSULE PO SCH ×2 (13:06→20:25)
[2019-12-20 14:00] VITALS: BP 131/61
--- NOTE | 2019-12-20 16:27 | IPNPDOC ---
Text Note Date of Service The patient was seen on 12/20/19. NOTE Subjective: -Feels better this AM -No complaints Physical Examination: GENERAL APPEARANCE: Alert, obese, NAD HEENT: NCAT, PERRLA, EOMI, anicteric NECK: supple, no noted JVD LUNGS: CTAB, diminished bases, but not crackles, wheezing or rhonchi. HEART: RRR, no mrg ABDOMEN: Soft. No masses. Bowel sounds are present. EXTREMITIES: Chronic venous stasis change of bilateral extremity. 2+ pitting edema bilateral lower extremity, reports they looks much better than prior, with some skin tenting LABORATORY DATA: WBC 6.8 hgb 10.8 platelets 174 Na 140 K 4.4 Cr now improved to 2.38 UA++ IMAGING: see above MICROBIOLOGY: pending UCx Plan: UTI: +UA, came in after a fall, found to be dehydrated. UCx pending -start keflex for UTI JEM on CKD: likely prerenal in the setting of volume depletion -dc fluids, taking good PO -monitor BUN and Cr daily Fall: -has a history of falls with resistance to working with PT, likely deconditioned and could use PT -PT/OT evaluation -CT head and neck without acute fractures MARIVEL -Patient refuses to wear CPAP machine Chronic HFpEF: Last 2014 TTE showed Left mild ventricle hypertrophy with grossly preserved left ventricular systolic function and grade 1 diastolic dysfunction, aortic sclerosis resulting intramural aortic stenosis, normal central venous pressure, normal or mildly elevated pulmonary artery pressure. -has chronic LE edema but at this time does not appear to be fluid overloaded -continue home torsemide/aldactone with ongoing JEM and having presented with volume depletion Depression -Continue home fluoxetine and seroquel Hypothyroidism -Continue synthroid Hypertension -Continue home metop history of tachyarrythmia? -continue metop, fleicanide HLD: -continue lipitor Gout: -continue home allopurinol GERD -Continue home PPI DVT -Levonox and compression stocking Dispo: medsurg VS,Fishbone, I+O VS, Fishbone, I+O Laboratory Tests 12/20/19 08:08 Vital Signs Date Time Temp Pulse Resp B/P (MAP) Pulse Ox O2 Delivery O2 Flow Rate FiO2 12/20/19 14:00 97.1 53 14 131/61 (84) 99 Room Air I&O- Last 24 Hours up to 6 AM 5/1/20 06:00 Intake Total 490 ml Output Total 601 ml Balance -111 ml DARLING MCLEAN MD December 20, 2019 16:27
[2019-12-20] MEDS: ATORVASTATIN 10 MG TAB PO SCH (20:25)
[2019-12-20] MEDS: FAMOTIDINE 20 MG TAB PO SCH (20:25)
[2019-12-20] MEDS: QUEtiapine FUMARATE 50 MG TAB PO SCH (20:25)
[2019-12-20 22:00] VITALS: BP 164/65
[2019-12-21] MEDS: LEVOTHYROXINE 50MCG TABLET (0.05MG) PO SCH (05:36)
[2019-12-21 06:00] VITALS: BP 123/56
[2019-12-21] MEDS: ACETAMINOPHEN 500 MG TAB PO SCH ×2 (09:08→21:25)
[2019-12-21] MEDS: CEPHALEXIN 250MG CAPSULE PO SCH ×2 (09:09→21:25)
[2019-12-21] MEDS: FLECAINIDE 50MG TABLET PO SCH ×2 (09:09→21:25)
[2019-12-21] MEDS: FLUoxetine 20 MG CAP PO SCH (09:09)
[2019-12-21] MEDS: allopurinoL 300 MG TAB PO SCH (09:09)
[2019-12-21] MEDS: METOPROLOL TART 12.5 MG PER 1/2 TAB PO SCH ×2 (09:09→21:26)
[2019-12-21] MEDS: ASPIRIN 81 MG ENTERIC TAB PO SCH (09:09)
[2019-12-21] MEDS: FLUTICASONE PROP 0.05% NASAL SPRAY 16 GM (FLONASE) NARES SCH ×2 (09:10→21:26)
[2019-12-21] MEDS: HEPARIN SOD (PORCINE) 5000UNITS/ML VIAL (J1644 PER 1000UNITS) SC SCH ×2 (09:10→21:26)
[2019-12-21] MEDS: MICONAZOLE 2 % POWDER (DESENEX) TOP SCH (09:10)
[2019-12-21] MEDS: POLYVINYL ALCOHOL OPHTH SOLN 15 ML(LIQUITEARS) OU SCH ×4 (09:11→21:26)
[2019-12-21] MEDS: AZELASTINE 137MCG NASAL SPY 30 ML (ASTELIN) SCH ×2 (09:11→21:26)
[2019-12-21] MEDS ORDERED: NS 1,000 ML IV ONE (11:00)
[2019-12-21 14:00] VITALS: BP 146/61
--- NOTE | 2019-12-21 17:01 | IPNPDOC ---
Text Note Date of Service The patient was seen on 12/21/19. NOTE Subjective: -Is tired today, did not have breakfast. Plans to eat lunch. No complaints Physical Examination: GENERAL APPEARANCE: Alert, obese, NAD HEENT: NCAT, PERRLA, EOMI, anicteric NECK: supple, no noted JVD LUNGS: CTAB, diminished bases, but not crackles, wheezing or rhonchi. HEART: RRR, no mrg ABDOMEN: Soft. No masses. Bowel sounds are present. EXTREMITIES: Chronic venous stasis change of bilateral extremity. 2+ pitting edema bilateral lower extremity, reports they looks much better than prior, with some skin tenting LABORATORY DATA: WBC 6.8 hgb 10.8 platelets 174 Na 140 K 4.4 Cr now improved to 2.38 UA++ IMAGING: see above MICROBIOLOGY: pending UCx Plan: UTI: +UA, came in after a fall, found to be dehydrated. UCx pending -continue keflex for UTI, day 3 of antibiotics JEM on CKD: likely prerenal in the setting of volume depletion -restart fluids, NS @ 100cc/hr for poor PO, to give for 1L -monitor BUN and Cr daily Fall: -has a history of falls with resistance to working with PT, likely deconditioned and could use PT -PT/OT consulted -CT head and neck without acute fractures MARIVEL -Patient refuses to wear CPAP machine Chronic HFpEF: Last 2014 TTE showed Left mild ventricle hypertrophy with grossly preserved left ventricular systolic function and grade 1 diastolic dysfunction, aortic sclerosis resulting intramural aortic stenosis, normal central venous pressure, normal or mildly elevated pulmonary artery pressure. -has chronic LE edema but at this time does not appear to be fluid overloaded -continue home torsemide/aldactone with ongoing JEM and having presented with volume depletion Depression -Continue home fluoxetine and seroquel Hypothyroidism -Continue synthroid Hypertension -Continue home metop history of tachyarrythmia? -continue metop, fleicanide HLD: -continue lipitor Gout: -continue home allopurinol GERD -Continue home PPI DVT -Levonox and compression stocking Dispo: medsurg VS,Fishbone, I+O VS, Fishbone, I+O Vital Signs Date Time Temp Pulse Resp B/P (MAP) Pulse Ox O2 Delivery O2 Flow Rate FiO2 12/21/19 14:00 97.4 51 17 146/61 (89) 99 Room Air I&O- Last 24 Hours up to 6 AM 12/21/19 06:00 Intake Total 1260 ml Output Total 0 ml Balance 1260 ml DARLING MCLEAN MD December 21, 2019 17:01
[2019-12-21] MEDS: ATORVASTATIN 10 MG TAB PO SCH (21:25)
[2019-12-21] MEDS: QUEtiapine FUMARATE 50 MG TAB PO SCH (21:25)
[2019-12-21 22:00] VITALS: BP 155/56
[2019-12-22 05:14] LABS: HEMATOCRIT 30.3 % (36.0-47.0); HEMOGLOBIN 9.7 g/dl (12.0-15.5); MEAN CORPUSCULAR HEMOGLOBIN 33.4 pg (27.0-33.0); MEAN CORPUSCULAR VOLUME 104.5 fl (80.0-96.0); PLATELET COUNT, AUTOMATED 153 10^3/uL (150-450); WHITE BLOOD COUNT 6.9 10^3/uL (4.0-10.0)
[2019-12-22 05:36] LABS: CALCIUM LEVEL 8.8 MG/DL (8.8-10.2); CREATININE FOR GFR 1.74 MG/DL (0.55-1.30); GLOMERULAR FILTRATION RATE 29.5 (>32); MAGNESIUM LEVEL 2.5 MG/DL (1.8-2.4); POTASSIUM SERUM 4.7 MEQ/L (3.5-5.1)
[2019-12-22] MEDS: LEVOTHYROXINE 50MCG TABLET (0.05MG) PO SCH (05:56)
[2019-12-22 06:00] VITALS: BP 129/60
[2019-12-22] MEDS: HEPARIN SOD (PORCINE) 5000UNITS/ML VIAL (J1644 PER 1000UNITS) SC SCH ×2 (09:00→20:29)
[2019-12-22] MEDS: allopurinoL 300 MG TAB PO SCH (09:12)
[2019-12-22] MEDS: CEPHALEXIN 250MG CAPSULE PO SCH ×2 (09:13→20:27)
[2019-12-22] MEDS: FLECAINIDE 50MG TABLET PO SCH ×2 (09:13→20:27)
[2019-12-22] MEDS: FLUoxetine 20 MG CAP PO SCH (09:13)
[2019-12-22] MEDS: METOPROLOL TART 12.5 MG PER 1/2 TAB PO SCH ×2 (09:14→20:28)
[2019-12-22] MEDS: ASPIRIN 81 MG ENTERIC TAB PO SCH (09:14)
[2019-12-22] MEDS: ACETAMINOPHEN 500 MG TAB PO SCH ×2 (09:14→20:27)
[2019-12-22] MEDS: AZELASTINE 137MCG NASAL SPY 30 ML (ASTELIN) SCH ×2 (09:22→20:29)
[2019-12-22] MEDS: MICONAZOLE 2 % POWDER (DESENEX) TOP SCH (09:22)
[2019-12-22] MEDS: FLUTICASONE PROP 0.05% NASAL SPRAY 16 GM (FLONASE) NARES SCH ×2 (09:22→20:29)
[2019-12-22] MEDS: POLYVINYL ALCOHOL OPHTH SOLN 15 ML(LIQUITEARS) OU SCH ×4 (09:22→20:29)
--- NOTE | 2019-12-22 11:38 | IPNPDOC ---
Text Note Date of Service The patient was seen on 12/22/19. NOTE Subjective: -Much more awake this AM, no complaints Physical Examination: GENERAL APPEARANCE: Alert, obese, NAD HEENT: NCAT, PERRLA, EOMI, anicteric NECK: supple, no noted JVD LUNGS: CTAB, diminished bases, but not crackles, wheezing or rhonchi. HEART: RRR, no mrg ABDOMEN: Soft. No masses. Bowel sounds are present. EXTREMITIES: Chronic venous stasis change of bilateral extremity. 2+ pitting edema bilateral lower extremity LABORATORY DATA: WBC 6.9 hgb 9.7 platelets 153 Na 143 K 4.7 Cr now improved to 1.74 UA++ Micro: E.coli sensitive to Keflex IMAGING: see above Assessment: 84-year-old W is resident of [facility] who presented after a fall and found to be dehydrated with an JEM and with an E.coli UTI, now doing much better after hydration and starting antibiotics. Plan: UTI: +UA, came in after a fall, found to be dehydrated. UCx revealed E.coli sensitive to Keflex -continue keflex for UTI, day 4 of antibiotics -s/p IVF JEM on CKD: prerenal in the setting of volume depletion and ongoing UTI -Cr now at baseline after hydration, will stop fluids given history of CHF -monitor BUN and Cr daily Fall: -has a history of falls, likely deconditioned and could use PT -PT/OT consulted -CT head and neck without acute fractures MARIVEL -Patient refuses to wear CPAP machine Chronic HFpEF: Last 2014 TTE showed Left mild ventricle hypertrophy with grossly preserved left ventricular systolic function and grade 1 diastolic dysfunction, aortic sclerosis resulting intramural aortic stenosis, normal central venous pressure, normal or mildly elevated pulmonary artery pressure. -has chronic LE edema -continue holding torsemide/aldactone with ongoing JEM and having presented with volume depletion Depression -Continue home fluoxetine and seroquel Hypothyroidism -Continue synthroid Hypertension -Continue home metop history of tachyarrythmia? -continue metop, fleicanide HLD: -continue lipitor Gout: -continue home allopurinol GERD -Continue home PPI DVT -Levonox and compression stocking Dispo: medsurg, pending PT for dispo planning. Encouraging out of bed and PT engagement VS,Eliceoe, I+O VS, Juan Antoniobone, I+O Laboratory Tests 12/22/19 04:50 Vital Signs Date Time Temp Pulse Resp B/P (MAP) Pulse Ox O2 Delivery O2 Flow Rate FiO2 12/22/19 09:14 62 169/57 12/22/19 06:00 98.8 17 97 Room Air I&O- Last 24 Hours up to 6 AM 12/22/19 06:00 Intake Total 1840 ml Output Total 750 ml Balance 1090 ml DARLING MCLEAN MD December 22, 2019 09:28
[2019-12-22 14:00] VITALS: BP 157/59
[2019-12-22] MEDS: FAMOTIDINE 20 MG TAB PO SCH (20:27)
[2019-12-22] MEDS: ATORVASTATIN 10 MG TAB PO SCH (20:27)
[2019-12-22] MEDS: QUEtiapine FUMARATE 50 MG TAB PO SCH (20:27)
[2019-12-22 22:00] VITALS: BP 148/58
[2019-12-23] MEDS: LEVOTHYROXINE 50MCG TABLET (0.05MG) PO SCH (05:40)
[2019-12-23 05:51] LABS: HEMOGLOBIN 9.8 g/dl (12.0-15.5); MEAN CORPUSCULAR HGB CONC 32.7 g/dl (32.0-36.5); MEAN CORPUSCULAR VOLUME 104.2 fl (80.0-96.0); PLATELET COUNT, AUTOMATED 155 10^3/uL (150-450); RED BLOOD COUNT 2.88 10^6/uL (4.00-5.40); WHITE BLOOD COUNT 6.2 10^3/uL (4.0-10.0)
[2019-12-23 06:00] VITALS: BP 139/58
[2019-12-23 06:13] LABS: CALCIUM LEVEL 8.9 MG/DL (8.8-10.2); CREATININE FOR GFR 1.58 MG/DL (0.55-1.30); POTASSIUM SERUM 4.9 MEQ/L (3.5-5.1)
[2019-12-23] MEDS: ACETAMINOPHEN 500 MG TAB PO SCH (08:33)
[2019-12-23] MEDS: ASPIRIN 81 MG ENTERIC TAB PO SCH (08:33)
[2019-12-23] MEDS: HEPARIN SOD (PORCINE) 5000UNITS/ML VIAL (J1644 PER 1000UNITS) SC SCH (08:33)
[2019-12-23 08:34] VITALS: BP 139/58
[2019-12-23] MEDS: allopurinoL 300 MG TAB PO SCH (08:34)
[2019-12-23] MEDS: FLECAINIDE 50MG TABLET PO SCH (08:34)
[2019-12-23] MEDS: FLUTICASONE PROP 0.05% NASAL SPRAY 16 GM (FLONASE) NARES SCH (08:34)
[2019-12-23] MEDS: CEPHALEXIN 250MG CAPSULE PO SCH (08:34)
[2019-12-23] MEDS: FLUoxetine 20 MG CAP PO SCH (08:34)
[2019-12-23] MEDS: MICONAZOLE 2 % POWDER (DESENEX) TOP SCH (08:34)
[2019-12-23] MEDS: METOPROLOL TART 12.5 MG PER 1/2 TAB PO SCH (08:34)
[2019-12-23] MEDS: POLYVINYL ALCOHOL OPHTH SOLN 15 ML(LIQUITEARS) OU SCH (08:35)
[2019-12-23] MEDS: AZELASTINE 137MCG NASAL SPY 30 ML (ASTELIN) SCH (08:35)
[2019-12-23] MEDS ORDERED: KEFL250C11 PO (10:18)
--- NOTE | 2019-12-23 10:19 | DS.PDOC ---
Discharge Summary General Date of Admission Dec 19, 2019 at 09:04 Date of Discharge 12/23/19 Discharge Summary PROCEDURES PERFORMED DURING STAY: [None]. DISCHARGE DIAGNOSES: JEM on CKD UTI Fall Possible Underlying Dementia. SECONDARY DIAGNOSIS: MARIVEL (NOT TREATED SHE CAN'T TOLERATE THE MASK)REFUSES CPAP HTN with hypertensive heart disease Chronic diastolic CHF. 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 HISTORY OF PRESENT ILLNESS: See history and physical HOSPITAL COURSE: 84-year-old W is resident of [facility] who presented after a fall and found to be dehydrated with an JEM and with an E.coli UTI, now doing much better after hydration and antibiotics. Patient noted to be uncooperative with features of cognitive impairment. MMSE could not be done as uncooperative and expressing irritability and saying "Leave me alone " pulling up the blankets. I suspect patient has underlying dementia should be reassessed again as outpatient. UTI UCx revealed E.coli sensitive to Keflex continue keflex for UTI, day 4 of antibiotics JEM on CKD due to infection and dehydration resolved. Fall has a history of falls, likely deconditioned with spinal stenosis. CT neck and CT head negative for any acute injury continue rehab MARIVEL Patient refuses to wear CPAP machine Chronic HFpEF: Last 2014 TTE showed Left mild ventricle hypertrophy with grossly preserved left ventricular systolic function and grade 1 diastolic dysfunction, aortic sclerosis resulting intramural aortic stenosis, normal central venous pressure, normal or mildly elevated pulmonary artery pressure. has chronic LE edema restart diuretics. Depression Continue home fluoxetine and seroquel Possible underlying dementia needs to be reevaluated as outpatient when patient more cooperative. Hypothyroidism Continue synthroid Hypertension Continue home metop history of tachyarrythmia? continue metop, fleicanide HLD: continue lipitor Gout: continue home allopurinol GERD Continue home PPI DISCHARGE MEDICATIONS: Please see below. ALLERGIES: Please see below. PHYSICAL EXAMINATION ON DISCHARGE: VITAL SIGNS: Please see below. GENERAL APPEARANCE: Alert, obese, not oriented to place, uncooperative to physical exam. HEENT: NCAT, PERRLA, EOMI, anicteric NECK: supple, no noted JVD LUNGS: CTAB, diminished bases, but not crackles, wheezing or rhonchi. HEART: RRR, no mrg ABDOMEN: Soft. No masses. Bowel sounds are present. EXTREMITIES: Chronic venous stasis change of bilateral extremity. 2+ pitting edema bilateral lower extremity LABORATORY DATA: Please see below. ACTIVITY: [As tolerated]. DIET: 2 gram sodium DISCHARGE PLAN: [facility] DISPOSITION: . DISCHARGE INSTRUCTIONS: Follow up with MD at [facility] Needs evaluation for Dementia. DISCHARGE CONDITION: [Stable]. TIME SPENT ON DISCHARGE: 35 minutes. Vital Signs/I&Os Vital Signs Date Time Temp Pulse Resp B/P (MAP) Pulse Ox O2 Delivery O2 Flow Rate FiO2 12/23/19 08:34 60 139/58 12/23/19 06:00 97.8 18 95 Room Air I&O- Last 24 Hours up to 6 AM 12/23/19 06:00 Intake Total 670 ml Output Total 1500 ml Balance -830 ml Laboratory Data Labs 24H Laboratory Tests 2 12/23/19 05:32: Nucleated Red Blood Cells % (auto) 0.0, Anion Gap 5L, Glomerular Filtration Rate 33.0, Calcium Level 8.9 CBC/BMP Laboratory Tests 12/23/19 05:32 Microbiology Microbiology 12/20/19 Urine Culture - Final, Complete Escherichia Coli Discharge Medications Scheduled Acetaminophen (Acetaminophen) 500 Mg Tab, 500 MG PO BID, (Reported) Allopurinol (Zyloprim) 300 Mg Tab, 300 MG PO DAILY, (Reported) Aspirin (Aspirin EC) 81 Mg Tab, 81 MG PO DAILY, (Reported) Atorvastatin Calcium (Lipitor) 10 Mg Tab, 10 MG PO QHS, (Reported) Azelastine HCl (Azelastine HCl) 0.1 % Spr, 1 SPRAY NARES BID, (Reported) Famotidine (Famotidine) 40 Mg Tablet, 40 MG PO QHS, (Reported) Flecainide Acetate (Flecainide Acetate) 50 Mg Tab, 50 MG PO BID, (Reported) Fluoxetine Hcl (Fluoxetine HCl) 20 Mg Cap, 20 MG PO DAILY, (Reported) TAKES WITH 40MG DOSE Fluoxetine Hcl (Fluoxetine HCl) 40 Mg Cap, 40 MG PO DAILY, (Reported) TAKES WITH 20MG DOSE Fluticasone Propionate (Flonase Allergy Relief) 9.9 Ml [place].susp, 1 SPRAYS NARES BID, (Reported) Levothyroxine Sodium (Levothyroxine Sodium) 50 Mcg Tab, 50 MCG PO DAILY, (Reported) Metoprolol Tartrate (Metoprolol Tartrate) 25 Mg Tab, 12.5 MG PO BID, (Reported) Miconazole Nitrate (Zeasorb AF) 71 Gm Powder, 1 APLCT TOP DAILY, (Reported) UNDER BREASTS, ABDOMEN Propylene Glycol/Peg 400 (Systane 0.3-0.4% Eye Drops) 15 Ml Evi, 1 DROP OU QID, (Reported) Quetiapine Fumarate (Seroquel) 50 Mg Tablet, 50 MG PO QHS, (Reported) Spironolactone (Spironolactone) 25 Mg Tab, 25 MG PO DAILY, (Reported) Torsemide (Torsemide) 20 Mg Tablet, 40 MG PO DAILY, (Reported) Scheduled PRN Acetaminophen (Acetaminophen) 325 Mg Tab, 650 MG PO Q4H PRN for PAIN, (Reported) Bismuth Subsalicylate (Pepto-Bismol) 262 Mg Tablet, 524 MG PO Q4H PRN for DIAR BRUNA, (Reported) Magnesium Hydroxide (Milk of Magnesia) 400 Mg/5 Ml Oral.susp, 1,200 MG PO DAILY PRN for CONSTIPATION, (Reported) Nystatin (Nystatin Powder) 100,000 Unit/Gm Pow, 1 APLCT TOP DAILY PRN for RASH, (Reported) UNDER LEFT BREAST Allergies Coded Allergies: TAPE (Verified Allergy, Intermediate, RASH, 07/23/19) dabigatran etexilate (Verified Allergy, Unknown, 07/23/19) meperidine (Verified Adverse Reaction, Mild, VOMITING, 07/23/19) KASEY IRIZARRY MD December 23, 2019 10:19
== END 2019-12-23 12:04 | disposition home or self-care (01) ==
LOC: M ED 09:03 → EDBD 09:03 → M ED INP 09:04 → ENRESERV 12:41 → M ED 13:25 → M MSPAV 13:30
PROVIDERS: ADMIT Internal Medicine; ATTEND Internal Medicine Nephrology
DX: N17.9 Acute kidney failure, unspecified (principal); N18.3 Chronic kidney disease, stage 3 (moderate); N39.0 Urinary tract infection, site not specified; A49.8 Other bacterial infections of unspecified site; Z91.81 History of falling; R41.9 Unspecified symptoms and signs involving cognitive functions and awareness; E86.0 Dehydration; R60.0 Localized edema; R42 Dizziness and giddiness; G47.33 Obstructive sleep apnea (adult) (pediatric); I11.0 Hypertensive heart disease with heart failure; I50.32 Chronic diastolic (congestive) heart failure; E78.5 Hyperlipidemia, unspecified; F32.9 Major depressive disorder, single episode, unspecified; M48.00 Spinal stenosis, site unspecified; J30.9 Allergic rhinitis, unspecified; M10.9 Gout, unspecified; E55.9 Vitamin D deficiency, unspecified; E11.22 Type 2 diabetes mellitus with diabetic chronic kidney disease; I48.0 Paroxysmal atrial fibrillation; E03.9 Hypothyroidism, unspecified; E66.9 Obesity, unspecified; M19.90 Unspecified osteoarthritis, unspecified site; Z85.828 Personal history of other malignant neoplasm of skin; Z79.899 Other long term (current) drug therapy; Z79.01 Long term (current) use of anticoagulants; Z79.82 Long term (current) use of aspirin; Z79.2 Long term (current) use of antibiotics; Z88.8 Allergy status to other drugs, medicaments and biological substances; Z88.5 Allergy status to narcotic agent; Z91.048 Other nonmedicinal substance allergy status
CPT/HCPCS: 36415; 70450; 72125; 80048; 81001; 82550; 82553; 83735; 84443; 84484; 85025; 85027; 87088; 87186; 93005; 93041; 94760; 96360; 96361; 96372; 97161; 97165; 97530; 99285; G0378; J1644

== ENCOUNTER → 2019-12-30 | Outpatient (REF) ==
[~2019-12-30] MED LIST changes: +FAMO40TA3 PO; +KEFL250C11 PO; +TORS20TA2 PO; +ZEAS2POW4 TOP
[2019-12-30 10:00] LABS: HEMATOCRIT 33.4 % (36.0-47.0); HEMOGLOBIN 10.8 g/dl (12.0-15.5); MEAN CORPUSCULAR HEMOGLOBIN 33.1 pg (27.0-33.0); MEAN CORPUSCULAR HGB CONC 32.3 g/dl (32.0-36.5); MEAN CORPUSCULAR VOLUME 102.5 fl (80.0-96.0); PLATELET COUNT, AUTOMATED 198 10^3/uL (150-450); RED BLOOD COUNT 3.26 10^6/uL (4.00-5.40); WHITE BLOOD COUNT 6.2 10^3/uL (4.0-10.0)
[2019-12-30 10:28] LABS: CREATININE FOR GFR 2.49 MG/DL (0.55-1.30); GLOMERULAR FILTRATION RATE 19.5 (>32); POTASSIUM SERUM 4.5 MEQ/L (3.5-5.1)
== END ==
PROVIDERS: ATTEND Family Medicine
DX: I50.9 Heart failure, unspecified (principal)

== ENCOUNTER → 2020-01-02 | Outpatient (REF) ==
[2020-01-02 08:46] LABS: CALCIUM LEVEL 8.9 MG/DL (8.8-10.2); CREATININE FOR GFR 1.9 MG/DL (0.55-1.30); GLOMERULAR FILTRATION RATE 26.7 (>32); POTASSIUM SERUM 4.8 MEQ/L (3.5-5.1)
== END ==
PROVIDERS: ATTEND Family Medicine
DX: N18.9 Chronic kidney disease, unspecified (principal)

== ENCOUNTER → 2020-01-06 | Outpatient (REF) | PROVIDERS: ATTEND Internal Medicine | DX: Z03.818 Encounter for observation for suspected exposure to other biological agents ruled out (principal) ==

== ENCOUNTER → 2020-01-06 | Outpatient (REF) ==
[2020-01-06 12:45] LABS: HEMATOCRIT 31.9 % (36.0-47.0); HEMOGLOBIN 10.4 g/dl (12.0-15.5); MEAN CORPUSCULAR HEMOGLOBIN 33.9 pg (27.0-33.0); MEAN CORPUSCULAR HGB CONC 32.6 g/dl (32.0-36.5); MEAN CORPUSCULAR VOLUME 103.9 fl (80.0-96.0); PLATELET COUNT, AUTOMATED 192 10^3/uL (150-450); RED BLOOD COUNT 3.07 10^6/uL (4.00-5.40); WHITE BLOOD COUNT 6.7 10^3/uL (4.0-10.0)
[2020-01-06 13:21] LABS: CALCIUM LEVEL 8.9 MG/DL (8.8-10.2); CREATININE FOR GFR 2.04 MG/DL (0.55-1.30); GLOMERULAR FILTRATION RATE 24.6 (>32); POTASSIUM SERUM 4.6 MEQ/L (3.5-5.1)
== END ==
PROVIDERS: ATTEND Family Medicine
DX: N18.9 Chronic kidney disease, unspecified (principal)

== ENCOUNTER → 2020-01-09 | Outpatient (REF) ==
--- NOTE | 2020-01-09 16:03 | REPPI ---
REASON: Bruising on the 4th toe. Two limited views were obtained. A fracture cannot be ruled out by two limited views. Additionally, the examination was obtained portably. Two limited views show degenerative changes throughout the foot particularly the 2nd and 1st metatarsophalangeal joint where there is asymmetric joint space narrowing and marginal osteophytosis along with subchondral sclerosis. Although no gross fracture is identified. It cannot be ruled out on this limited exam. Plantar and retrocalcaneal heel spurs are present. The bones are demineralized. IMPRESSION: Findings and limitations as described. Four-view foot series in the department using standard technique is recommended if fracture is of clinical concern. Electronically Signed by Jermaine Qiu DO 01/09/2020 04:53 P
== END ==
PROVIDERS: ATTEND Family Medicine
DX: S90.31XA Contusion of right foot, initial encounter (principal)

== ENCOUNTER → 2020-01-22 | Outpatient (REF) | payer MEDICARE ==
[2020-01-22 10:49] LABS: HEMATOCRIT 34.5 % (36.0-47.0); HEMOGLOBIN 11.3 g/dl (12.0-15.5); MEAN CORPUSCULAR HEMOGLOBIN 33.8 pg (27.0-33.0); MEAN CORPUSCULAR HGB CONC 32.8 g/dl (32.0-36.5); MEAN CORPUSCULAR VOLUME 103.3 fl (80.0-96.0); PLATELET COUNT, AUTOMATED 192 10^3/uL (150-450); RED BLOOD COUNT 3.34 10^6/uL (4.00-5.40); WHITE BLOOD COUNT 6.6 10^3/uL (4.0-10.0)
[2020-01-22 11:20] LABS: CALCIUM LEVEL 9.3 MG/DL (8.8-10.2); CREATININE FOR GFR 2.42 MG/DL (0.55-1.30); GLOMERULAR FILTRATION RATE 20.1 (>32); POTASSIUM SERUM 4.6 MEQ/L (3.5-5.1)
== END ==
PROVIDERS: ATTEND Internal Medicine
DX: I50.9 Heart failure, unspecified (principal)

== ENCOUNTER → 2020-01-28 | Outpatient (REF) ==
[2020-01-28 11:13] LABS: CREATININE FOR GFR 1.85 MG/DL (0.55-1.30)
[2020-01-28 11:14] LABS: CALCIUM LEVEL 9.3 MG/DL (8.8-10.2); GLOMERULAR FILTRATION RATE 27.5 (>32); POTASSIUM SERUM 4.3 MEQ/L (3.5-5.1)
[2020-01-28 15:34] LABS: ALBUMIN 3.3 GM/DL (3.2-5.2); PERCENT SATURATION 22.3 % (13.2-45.0); PHOSPHORUS LEVEL 3.4 MG/DL (2.5-4.9); URIC ACID 5.4 MG/DL (2.6-6.0)
== END ==
PROVIDERS: ATTEND Family Medicine
DX: I50.9 Heart failure, unspecified (principal)

== ENCOUNTER → 2020-01-29 | Outpatient (REF) ==
[2020-01-29 17:30] LABS: APPEARANCE, URINE TURBID (CLEAR); BACTERIA, URINE AUTO 1+ (NEGATIVE); BILIRUBIN, URINE AUTO NEGATIVE (NEGATIVE); BLOOD, URINE BLOOD NEGATIVE (NEGATIVE); COLOR, URINE YELLOW (YELLOW); GLUCOSE, URINE (UA) AUTO NEGATIVE (NEGATIVE); KETONE, URINE AUTO NEGATIVE (NEGATIVE); LEUKOCYTE ESTERASE, URINE AUTO 3+ (NEGATIVE); NITRITE, URINE AUTO NEGATIVE (NEGATIVE); PROTEIN, URINE AUTO NEGATIVE (NEGATIVE); RBC, URINE AUTO 6 /HPF (0-3); SPECIFIC GRAVITY URINE AUTO 1.012 (1.002-1.035); SQUAMOUS EPITHELIAL CELL UR AU 32 /HPF (0-6); UROBILINOGEN, URINE AUTO 0.2 mg/dL (0.0-2.0); WBC, URINE AUTO TNTC /HPF (0-3)
== END ==
PROVIDERS: ATTEND Family Medicine
DX: N18.9 Chronic kidney disease, unspecified (principal)

== ENCOUNTER → 2020-01-30 | Outpatient (REF) ==
[2020-01-30 09:28] LABS: BASO % 0.3 % (0.0-1.0); EOS # 0.7 10^3/uL (0.0-0.5); EOS % 10.9 % (0.0-3.0); HEMOGLOBIN 10.7 g/dl (12.0-15.5); LYMPH % 30.8 % (24.0-44.0); MEAN CORPUSCULAR HEMOGLOBIN 33.4 pg (27.0-33.0); MEAN CORPUSCULAR HGB CONC 32.4 g/dl (32.0-36.5); MEAN CORPUSCULAR VOLUME 103.1 fl (80.0-96.0); MONO # 0.5 10^3/uL (0.0-0.8); MONO % 7.3 % (0.0-5.0); NEUTROPHILS # 3.2 10^3/uL (1.5-8.5); NEUTROPHILS % 50.5 % (36.0-66.0); PLATELET COUNT, AUTOMATED 199 10^3/uL (150-450); WHITE BLOOD COUNT 6.3 10^3/uL (4.0-10.0)
== END ==
PROVIDERS: ATTEND Family Medicine
DX: N18.9 Chronic kidney disease, unspecified (principal)

== ENCOUNTER → 2020-02-04 | Outpatient (REF) ==
[2020-02-04 12:46] LABS: CREATININE FOR GFR 1.69 MG/DL (0.55-1.30); GLOMERULAR FILTRATION RATE 30.5 (>32); POTASSIUM SERUM 4.2 MEQ/L (3.5-5.1)
== END ==
PROVIDERS: ATTEND Family Medicine
DX: I50.9 Heart failure, unspecified (principal)

== ENCOUNTER → 2020-02-07 | Outpatient (REF) | payer MEDICARE | PROVIDERS: ATTEND Family Medicine | DX: Z11.59 Encounter for screening for other viral diseases (principal) ==

== ENCOUNTER → 2020-04-06 | Outpatient (REF) | payer MEDICARE ==
[2020-06-13 11:12] LABS: APPEARANCE, URINE MANUAL CLEAR (CLEAR)
[2020-06-13 11:13] LABS: BILIRUBIN, URINE MANUAL NEGATIVE (NEGATIVE); BLOOD URINE MANUAL NEGATIVE (NEGATIVE); COLOR, URINE MANUAL YELLOW (YELLOW); GLUCOSE, URINE (UA) MANUAL NEGATIVE (NEGATIVE); KETONE, URINE MANUAL NEGATIVE (NEGATIVE); LEUKOCYTE ESTERASE, URINE MAN NEGATIVE (NEGATIVE); NITRITE, URINE MANUAL NEGATIVE (NEGATIVE); PROTEIN, URINE MANUAL NEGATIVE (NEGATIVE); SPECIFIC GRAVITY,URINE MANUAL 1.015 (1.002-1.035); UROBILINOGEN, URINE MANUAL NORMAL (NORMAL)
[2020-06-13 11:41] LABS: BASO % 0.4 % (0.0-1.0); EOS # 0.5 10^3/uL (0.0-0.5); EOS % 8.4 % (0.0-3.0); HEMATOCRIT 31.4 % (36.0-47.0); HEMOGLOBIN 10.4 g/dl (12.0-15.5); LYMPH # 2.3 10^3/uL (1.5-5.0); LYMPH % 40.2 % (24.0-44.0); MEAN CORPUSCULAR HEMOGLOBIN 34.7 pg (27.0-33.0); MEAN CORPUSCULAR HGB CONC 33.1 g/dl (32.0-36.5); MEAN CORPUSCULAR VOLUME 104.7 fl (80.0-96.0); MONO # 0.7 10^3/uL (0.0-0.8); MONO % 12.7 % (0.0-5.0); NEUTROPHILS # 2.1 10^3/uL (1.5-8.5); NEUTROPHILS % 38.1 % (36.0-66.0); PLATELET COUNT, AUTOMATED 151 10^3/uL (150-450); WHITE BLOOD COUNT 5.6 10^3/uL (4.0-10.0)
[2020-06-27 12:46] LABS: ALBUMIN 3.3 GM/DL (3.2-5.2); CALCIUM LEVEL 8.7 MG/DL (8.8-10.2); CREATININE FOR GFR 1.53 MG/DL (0.55-1.30); GLOMERULAR FILTRATION RATE 34.2 (>32); PHOSPHORUS LEVEL 3.7 MG/DL (2.5-4.9); POTASSIUM SERUM 4.2 MEQ/L (3.5-5.1)
== END ==
PROVIDERS: ATTEND Internal Medicine
DX: N18.4 Chronic kidney disease, stage 4 (severe) (principal); M1A.30X0 Chronic gout due to renal impairment, unspecified site, without tophus (tophi)

== ENCOUNTER → 2020-05-01 | Outpatient (REF) | payer MEDICARE ==
[2020-05-01 10:37] LABS: BASO % 0.1 % (0.0-1.0); EOS # 0.5 10^3/uL (0.0-0.5); EOS % 6.9 % (0.0-3.0); HEMATOCRIT 37.1 % (36.0-47.0); HEMOGLOBIN 11.9 g/dl (12.0-15.5); LYMPH # 2.5 10^3/uL (1.5-5.0); LYMPH % 32.5 % (24.0-44.0); MEAN CORPUSCULAR HGB CONC 32.1 g/dl (32.0-36.5); MONO # 0.8 10^3/uL (0.0-0.8); MONO % 10.9 % (0.0-5.0); NEUTROPHILS # 3.7 10^3/uL (1.5-8.5); NEUTROPHILS % 49.3 % (36.0-66.0); PLATELET COUNT, AUTOMATED 154 10^3/uL (150-450); WHITE BLOOD COUNT 7.6 10^3/uL (4.0-10.0)
== END ==
PROVIDERS: ATTEND Family Medicine
DX: K92.2 Gastrointestinal hemorrhage, unspecified (principal)

== ENCOUNTER → 2020-05-20 | Outpatient (RCR) | payer MEDICARE | LOC: M PT 05-11 13:13 | PROVIDERS: ATTEND Family Medicine | DX: M17.12 Unilateral primary osteoarthritis, left knee (principal) ==

== ENCOUNTER 2020-06-11 10:15 | Outpatient (RCR) | payer MEDICARE | END 2020-06-20 | LOC: M PT 10:15 | PROVIDERS: ATTEND Family Medicine | DX: M17.12 Unilateral primary osteoarthritis, left knee (principal) ==

== ENCOUNTER → 2020-07-06 | Outpatient (REF) | payer MEDICARE ==
[~2020-07-06] MED LIST changes: +ISOS1TAB35 PO; +ISOS1TAB36 PO; -ISOS30TA4 PO; -ISOS60TA2 PO; +LISI10TA22 PO; -LISI10TA4 PO; -QUET1TAB7 PO; +QUET25TA3 PO
[2020-07-06 10:19] LABS: BASO % 0.4 % (0.0-1.0); EOS # 0.5 10^3/uL (0.0-0.5); EOS % 10.2 % (0.0-3.0); HEMATOCRIT 33.4 % (36.0-47.0); HEMOGLOBIN 10.6 g/dl (12.0-15.5); LYMPH # 1.6 10^3/uL (1.5-5.0); LYMPH % 34.8 % (24.0-44.0); MEAN CORPUSCULAR HEMOGLOBIN 33.3 pg (27.0-33.0); MEAN CORPUSCULAR HGB CONC 31.7 g/dl (32.0-36.5); MONO # 0.5 10^3/uL (0.0-0.8); MONO % 11.5 % (0.0-5.0); NEUTROPHILS % 42.9 % (36.0-66.0); PLATELET COUNT, AUTOMATED 142 10^3/uL (150-450); RED BLOOD COUNT 3.18 10^6/uL (4.00-5.40); WHITE BLOOD COUNT 4.7 10^3/uL (4.0-10.0)
[2020-07-06 10:47] LABS: ALBUMIN 3.3 GM/DL (3.2-5.2); CALCIUM LEVEL 8.9 MG/DL (8.8-10.2); CREATININE FOR GFR 1.45 MG/DL (0.55-1.30); GLOMERULAR FILTRATION RATE 36.4 (>32); PHOSPHORUS LEVEL 3.5 MG/DL (2.5-4.9); POTASSIUM SERUM 4.8 MEQ/L (3.5-5.1); URIC ACID 6.7 MG/DL (2.6-6.0)
== END ==
PROVIDERS: ATTEND Internal Medicine Nephrology
DX: N18.4 Chronic kidney disease, stage 4 (severe) (principal)

== ENCOUNTER → 2020-07-31 | Outpatient (REF) | payer MEDICARE ==
[~2020-07-31] MED LIST changes: -ISOS1TAB35 PO; -ISOS1TAB36 PO; +ISOS30TA4 PO; +ISOS60TA2 PO; -LISI10TA22 PO; +LISI10TA4 PO; +QUET1TAB7 PO; -QUET25TA3 PO
== END ==
PROVIDERS: ATTEND Internal Medicine
DX: Z20.828 Contact with and (suspected) exposure to other viral communicable diseases (principal)

== ENCOUNTER → 2020-08-05 | Outpatient (REF) | payer MEDICARE ==
[2020-08-05 17:25] LABS: INFLUENZA A AMPLIFICATION NEGATIVE (NEGATIVE); INFLUENZA B AMPLIFICATION NEGATIVE (NEGATIVE)
== END ==
PROVIDERS: ATTEND Internal Medicine
DX: Z20.828 Contact with and (suspected) exposure to other viral communicable diseases (principal)
CPT/HCPCS: 87502; U0003

== ENCOUNTER → 2020-08-10 | Outpatient (REF) | payer MEDICARE | PROVIDERS: ATTEND Internal Medicine | DX: Z20.828 Contact with and (suspected) exposure to other viral communicable diseases (principal) ==

== ENCOUNTER → 2020-08-24 | Outpatient (REF) | payer MEDICARE | PROVIDERS: ATTEND Internal Medicine | DX: Z11.52 Encounter for screening for COVID-19 (principal) ==

== ENCOUNTER → 2020-08-31 | Outpatient (REF) | payer MEDICARE | PROVIDERS: ATTEND Internal Medicine | DX: Z20.822 Contact with and (suspected) exposure to COVID-19 (principal) ==

== ENCOUNTER → 2020-09-07 | Outpatient (REF) | payer MEDICARE | PROVIDERS: ATTEND Internal Medicine | DX: Z20.822 Contact with and (suspected) exposure to COVID-19 (principal) ==

== ENCOUNTER → 2020-09-14 | Outpatient (REF) | payer MEDICARE | PROVIDERS: ATTEND Internal Medicine | DX: Z20.822 Contact with and (suspected) exposure to COVID-19 (principal) ==

== ENCOUNTER → 2020-09-21 | Outpatient (REF) | payer MEDICARE | PROVIDERS: ATTEND Internal Medicine | DX: Z20.822 Contact with and (suspected) exposure to COVID-19 (principal) ==

== ENCOUNTER → 2020-09-28 | Outpatient (REF) | payer MEDICARE ==
[~2020-09-28] MED LIST changes: +ISOS1TAB35 PO; +ISOS1TAB36 PO; -ISOS30TA4 PO; -ISOS60TA2 PO; +LISI10TA22 PO; -LISI10TA4 PO; -QUET1TAB7 PO; +QUET25TA3 PO
== END ==
PROVIDERS: ATTEND Internal Medicine
DX: Z20.822 Contact with and (suspected) exposure to COVID-19 (principal)

== ENCOUNTER → 2020-10-05 | Outpatient (REF) | payer MEDICARE | PROVIDERS: ATTEND Internal Medicine | DX: Z20.822 Contact with and (suspected) exposure to COVID-19 (principal) ==

== ENCOUNTER → 2020-11-05 | Outpatient (REF) | payer MEDICARE ==
[2020-11-05 08:42] LABS: BASO % 0.3 % (0.0-1.0); EOS # 0.4 10^3/uL (0.0-0.5); HEMATOCRIT 34.5 % (36.0-47.0); HEMOGLOBIN 11.1 g/dl (12.0-15.5); LYMPH # 2.4 10^3/uL (1.5-5.0); MEAN CORPUSCULAR HEMOGLOBIN 33.4 pg (27.0-33.0); MEAN CORPUSCULAR HGB CONC 32.2 g/dl (32.0-36.5); MEAN CORPUSCULAR VOLUME 103.9 fl (80.0-96.0); MONO # 0.7 10^3/uL (0.0-0.8); NEUTROPHILS # 2.5 10^3/uL (1.5-8.5); NEUTROPHILS % 41.5 % (36.0-66.0); PLATELET COUNT, AUTOMATED 114 10^3/uL (150-450); RED BLOOD COUNT 3.32 10^6/uL (4.00-5.40)
[2020-11-05 09:10] LABS: CREATININE FOR GFR 1.47 MG/DL (0.55-1.30); GLOMERULAR FILTRATION RATE 35.8 (>32); POTASSIUM SERUM 4.7 MEQ/L (3.5-5.1)
[2020-11-05 09:11] LABS: ALBUMIN 3.3 GM/DL (3.2-5.2); PHOSPHORUS LEVEL 4.1 MG/DL (2.5-4.9); URIC ACID 6.3 MG/DL (2.6-6.0)
[2020-11-05 10:24] LABS: PTH INTACT 82.7 PG/ML (18.5-88.0)
== END ==
PROVIDERS: ATTEND Internal Medicine Nephrology
DX: N18.32 Chronic kidney disease, stage 3b (principal); Z79.899 Other long term (current) drug therapy

== ENCOUNTER → 2020-12-09 | Outpatient (REF) | payer MEDICARE ==
[~2020-12-09] MED LIST changes: +MILK400S12 PO; -MILKSUS21 PO
[2020-12-09 09:11] LABS: BASO % 0.4 % (0.0-1.0); EOS # 0.4 10^3/uL (0.0-0.5); EOS % 7.3 % (0.0-3.0); HEMATOCRIT 34.6 % (36.0-47.0); HEMOGLOBIN 11.4 g/dl (12.0-15.5); LYMPH # 1.9 10^3/uL (1.5-5.0); LYMPH % 35.2 % (24.0-44.0); MEAN CORPUSCULAR HEMOGLOBIN 34.3 pg (27.0-33.0); MEAN CORPUSCULAR HGB CONC 32.9 g/dl (32.0-36.5); MEAN CORPUSCULAR VOLUME 104.2 fl (80.0-96.0); MONO # 0.6 10^3/uL (0.0-0.8); MONO % 10.1 % (2.0-8.0); NEUTROPHILS # 2.6 10^3/uL (1.5-8.5); NEUTROPHILS % 46.8 % (36.0-66.0); PLATELET COUNT, AUTOMATED 150 10^3/uL (150-450); RED BLOOD COUNT 3.32 10^6/uL (4.00-5.40); WHITE BLOOD COUNT 5.5 10^3/uL (4.0-10.0)
[2020-12-09 09:29] LABS: ALBUMIN 3.4 GM/DL (3.2-5.2); CALCIUM LEVEL 8.7 MG/DL (8.8-10.2); CREATININE FOR GFR 1.76 MG/DL (0.55-1.30); GLOMERULAR FILTRATION RATE 29.1 (>32); MAGNESIUM LEVEL 2.5 MG/DL (1.8-2.4); PHOSPHORUS LEVEL 3.6 MG/DL (2.5-4.9); POTASSIUM SERUM 4.1 MEQ/L (3.5-5.1); URIC ACID 6.6 MG/DL (2.6-6.0)
== END ==
PROVIDERS: ATTEND Internal Medicine Nephrology
DX: N18.32 Chronic kidney disease, stage 3b (principal); M1A.30X0 Chronic gout due to renal impairment, unspecified site, without tophus (tophi)

== ENCOUNTER → 2020-12-11 | Outpatient (REF) | payer MEDICARE ==
[2020-12-11 12:07] LABS: APPEARANCE, URINE HAZY (CLEAR); BACTERIA, URINE AUTO 3+ (NEGATIVE); BILIRUBIN, URINE AUTO NEGATIVE (NEGATIVE); BLOOD, URINE BLOOD 1+ (NEGATIVE); COLOR, URINE YELLOW (YELLOW); GLUCOSE, URINE (UA) AUTO NEGATIVE (NEGATIVE); KETONE, URINE AUTO NEGATIVE (NEGATIVE); LEUKOCYTE ESTERASE, URINE AUTO 3+ (NEGATIVE); NITRITE, URINE AUTO NEGATIVE (NEGATIVE); PROTEIN, URINE AUTO NEGATIVE (NEGATIVE); RBC, URINE AUTO 2 /HPF (0-3); SPECIFIC GRAVITY URINE AUTO 1.014 (1.002-1.035); SQUAMOUS EPITHELIAL CELL UR AU 3 /HPF (0-6); UROBILINOGEN, URINE AUTO 0.2 mg/dL (0.0-2.0); WBC, URINE AUTO 126 /HPF (0-3)
== END ==
LOC: M LAB REF 11:37
PROVIDERS: ATTEND Internal Medicine Nephrology
DX: N18.32 Chronic kidney disease, stage 3b (principal); M1A.30X0 Chronic gout due to renal impairment, unspecified site, without tophus (tophi)

== ENCOUNTER → 2021-02-12 | Outpatient (REF) | payer MEDICARE ==
[~2021-02-12] MED LIST changes: +ACET-907 PO; +ALLO100T PO; +FLON1SPR; -FLON1SPR NARES; +MOM30SS PO
[2021-02-12 09:36] LABS: BASO % 0.3 % (0.0-1.0); EOS # 0.5 10^3/uL (0.0-0.5); EOS % 7.9 % (0.0-3.0); HEMATOCRIT 35.3 % (36.0-47.0); HEMOGLOBIN 11.5 g/dl (12.0-15.5); LYMPH # 1.9 10^3/uL (1.5-5.0); LYMPH % 31.7 % (24.0-44.0); MEAN CORPUSCULAR HGB CONC 32.6 g/dl (32.0-36.5); MEAN CORPUSCULAR VOLUME 104.4 fl (80.0-96.0); MONO # 0.5 10^3/uL (0.0-0.8); MONO % 8.9 % (2.0-8.0); NEUTROPHILS # 3.1 10^3/uL (1.5-8.5); PLATELET COUNT, AUTOMATED 163 10^3/uL (150-450); RED BLOOD COUNT 3.38 10^6/uL (4.00-5.40); WHITE BLOOD COUNT 6.1 10^3/uL (4.0-10.0)
[2021-02-12 10:01] LABS: ALBUMIN 3.5 GM/DL (3.2-5.2); CALCIUM LEVEL 8.8 MG/DL (8.8-10.2); CREATININE FOR GFR 1.6 MG/DL (0.55-1.30); GLOMERULAR FILTRATION RATE 32.4 (>32); MAGNESIUM LEVEL 2.5 MG/DL (1.8-2.4); PHOSPHORUS LEVEL 3.5 MG/DL (2.5-4.9); POTASSIUM SERUM 4.6 MEQ/L (3.5-5.1); URIC ACID 6.1 MG/DL (2.6-6.0)
== END ==
PROVIDERS: ATTEND Internal Medicine Nephrology
DX: N18.4 Chronic kidney disease, stage 4 (severe) (principal)

== ENCOUNTER 2021-02-23 00:30 | Observation (INO) | payer MEDICARE ==
[~2021-02-23] VITALS: Ht 162.6 cm; Wt 97.1 kg
[~2021-02-23 00:30] MED LIST changes: -ACET-907 PO; -ALLO100T PO; -MOM30SS PO
[2021-02-23] MEDS ORDERED: VITMTA PO (01:19)
[2021-02-23] MEDS ORDERED: QUET25TA3 PO (01:19)
[2021-02-23] MEDS ORDERED: ALLO100T PO (01:19)
[2021-02-23] MEDS ORDERED: ACET-907 PO ×2 (01:19→01:30)
[2021-02-23] MEDS ORDERED: MOM30SS PO (01:30)
[2021-02-23] MEDS ORDERED: fentaNYL 100 MCG/2 ML INJECTION (J3010) IV ONE (02:20)
[2021-02-23] MEDS ORDERED: ONDANSETRON 4MG/2ML VIAL IV ONE (02:20)
--- NOTE | 2021-02-23 04:21 | REPVR ---
PROCEDURE INFORMATION: Exam: XR Left Shoulder Exam date and time: 02/23/2021 3:34 AM Age: 86 years old Clinical indication: Pain; Shoulder; Left; Additional info: Trauma TECHNIQUE: Imaging protocol: XR Left shoulder. Views: 2 or more views. COMPARISON: CR Elbow, complete 08/31/2019 6:49 PM FINDINGS: Bones/joints: Acute fracture of the left humeral neck. Osteopenia. Degenerative changes the left acromioclavicular and glenohumeral joints. Soft tissues: Normal. IMPRESSION: Acute fracture of the left humeral neck. Electronically signed by: Edwar Luevano On 02/23/2021 04:21:24 AM
--- NOTE | 2021-02-23 04:36 | REPVR ---
PROCEDURE INFORMATION: Exam: XR Left Ribs with PA Chest Exam date and time: 02/23/2021 3:34 AM Age: 86 years old Clinical indication: Pain; Other: Rib; Additional info: Trauma TECHNIQUE: Imaging protocol: XR Left ribs with PA chest. Views: 3 views COMPARISON: NV PORTABLE CHEST X-RAY 08/31/2019 6:48 PM FINDINGS: Lungs: Mild nonspecific bilateral perihilar ground-glass and reticulonodular opacities. Pleural spaces: Unremarkable. No pleural effusion. No pneumothorax. Heart/Mediastinum: Unremarkable. No cardiomegaly. Vasculature: Atherosclerotic disease. Diaphragm: Elevated right hemidiaphragm. Bones/joints: Redemonstration of a left humeral neck fracture. Degenerative changes in the left acromioclavicular and glenohumeral joints. Severe multilevel degenerative disease of the thoracolumbar spine. IMPRESSION: No definite acute rib fractures. Electronically signed by: Edwar Luevano On 02/23/2021 04:35:13 AM
--- NOTE | 2021-02-23 04:41 | REPVR ---
PROCEDURE INFORMATION: Exam: XR Lumbosacral Spine Exam date and time: 02/23/2021 3:34 AM Age: 86 years old Clinical indication: Low back pain; Additional info: Trauma TECHNIQUE: Imaging protocol: XR of the lumbosacral spine. Views: 4 or 5 views. COMPARISON: CR Hip,AP,LAT to include Pelvis 06/22/2019 12:55 PM FINDINGS: Bones/joints: Severe multilevel degenerative disease. Mild scoliosis. Degenerative changes in the bilateral sacroiliac joints.. Soft tissues: Unremarkable. IMPRESSION: Severe multilevel degenerative disease. Electronically signed by: Edwar Luevano On 02/23/2021 04:41:00 AM
--- NOTE | 2021-02-23 04:42 | REPVR ---
PROCEDURE INFORMATION: Exam: XR Left Humerus Exam date and time: 02/23/2021 3:40 AM Age: 86 years old Clinical indication: Pain; Shoulder; Left; Additional info: Injury TECHNIQUE: Imaging protocol: XR Left humerus. Views: 2 or more views. COMPARISON: CR Shoulder, complete LEFT 02/23/2021 2:20 AM FINDINGS: Bones/joints: Redemonstration of left humeral neck fracture. Osteopenia. Degenerative changes. Soft tissues: Normal. IMPRESSION: Redemonstration of left humeral neck fracture. Electronically signed by: Edwar Luevano On 02/23/2021 04:42:06 AM
[2021-02-23] MEDS: LEVOTHYROXINE 50MCG TABLET (0.05MG) PO SCH (06:00)
[2021-02-23 08:50] LABS: BASO % 0.1 % (0.0-1.0); HEMATOCRIT 30.6 % (36.0-47.0); LYMPH # 1.2 10^3/uL (1.5-5.0); LYMPH % 10.7 % (24.0-44.0); MEAN CORPUSCULAR HEMOGLOBIN 34.2 pg (27.0-33.0); MEAN CORPUSCULAR HGB CONC 32.7 g/dl (32.0-36.5); MEAN CORPUSCULAR VOLUME 104.8 fl (80.0-96.0); MONO # 0.6 10^3/uL (0.0-0.8); MONO % 5.5 % (2.0-8.0); NEUTROPHILS # 9.6 10^3/uL (1.5-8.5); NEUTROPHILS % 83.3 % (36.0-66.0); PLATELET COUNT, AUTOMATED 155 10^3/uL (150-450); RED BLOOD COUNT 2.92 10^6/uL (4.00-5.40); WHITE BLOOD COUNT 11.5 10^3/uL (4.0-10.0)
[2021-02-23 09:14] LABS: ALBUMIN 3.1 GM/DL (3.2-5.2); BILIRUBIN,TOTAL 0.5 MG/DL (0.2-1.0); CALCIUM LEVEL 8.7 MG/DL (8.8-10.2); CREATININE FOR GFR 1.71 MG/DL (0.55-1.30); POTASSIUM SERUM 5.1 MEQ/L (3.5-5.1); TOTAL PROTEIN 6.6 GM/DL (6.4-8.2)
[2021-02-23 11:35] LABS: RSV AMPLIFICATION NEGATIVE (NEGATIVE)
--- NOTE | 2021-02-23 11:45 | HPEPDOC ---
General Date of Admission Feb 23, 2021 at 00:31 Date of Service: Feb 23, 2021 Chief Complaint The patient is a 86-year-old female admitted with a reason for visit of Fall With Injury, Humerus Fracture. History of Present Illness Mrs. Lawrence is an 86 year old female from [facility] with gait instability who presents with a mechanical fall, then found to have a left humerus fracture. Early this morning, she was in the bathroom, cleaning up. She was turning to reach the towel, but could not reach and fell on her left shoulder. Denies head strike or loss of consciousness. After falling, she laid there and cried. She was brought to the ED for evaluation. XR left shoulder and humerus demonstrates acute fracture of the left humeral neck and osteopenia. I touched based with Dr. Villagran, and he looked at the images. No surgery needed, just sling. Patient did not pass physical therapy. Patient will need placement, case management manager aware. Home Medications Scheduled Acetaminophen (Tylenol) 325 Mg Tablet, 650 MG PO TID, (Reported) 0800, 1200, 2000 Allopurinol (Allopurinol) 100 Mg Tablet, 100 MG PO DAILY, (Reported) Aspirin (Aspirin EC) 81 Mg Tab, 81 MG PO DAILY, (Reported) Atorvastatin Calcium (Lipitor) 10 Mg Tab, 10 MG PO QHS, (Reported) Flecainide Acetate (Flecainide Acetate) 50 Mg Tab, 50 MG PO BID, (Reported) Fluoxetine Hcl (Fluoxetine HCl) 40 Mg Cap, 40 MG PO BID, (Reported) Fluticasone Propionate (Flonase Allergy Relief) 9.9 Ml [place].susp, 1 SPRAY NA B ID, (Reported) Levothyroxine Sodium (Levothyroxine Sodium) 50 Mcg Tab, 50 MCG PO DAILY, (Reported) TAKES AT 1000 Metoprolol Tartrate (Metoprolol Tartrate) 25 Mg Tab, 12.5 MG PO BID, (Reported) Milk Of Magnesia (Milk of Magnesia) 2,400 Mg/10 Ml Oral.susp, 5 ML PO DAILY, (Reported) Multivitamins (Thera M Plus Tablet) 1 Each Tablet, 1 TAB PO DAILY, (Reported) Nystatin (Nystatin Powder) 100,000 Unit/Gm Pow, 1 DOSE TOP QID, (Reported) APPLY A LIGHT DUSTING TO INTERGLUTEAL AREA Propylene Glycol/Peg 400 (Systane 0.3-0.4% Eye Drops) 15 Ml Evi, 1 DROP OU QID, (Reported) Quetiapine Fumarate (Quetiapine Fumarate) 25 Mg Tablet, 75 MG PO QHS, (Reported) Spironolactone (Spironolactone) 25 Mg Tab, 25 MG PO DAILY, (Reported) Torsemide (Torsemide) 20 Mg Tablet, 30 MG PO DAILY, (Reported) Scheduled PRN Acetaminophen (Acetaminophen) 325 Mg Tab, 650 MG PO Q4H PRN for PAIN, (Reported) Acetaminophen (Tylenol) 325 Mg Tablet, 650 MG PO Q4H PRN for PAIN LEVEL 1-5, (Reported) Allergies Coded Allergies: TAPE (Verified Allergy, Intermediate, RASH, 07/23/19) dabigatran etexilate (Verified Allergy, Unknown, 07/23/19) meperidine (Verified Adverse Reaction, Mild, VOMITING, 07/23/19) Past Medical History Medical History 1. MARIVEL (refuses mask) 2. Hypertension 3. Hyperlipidemia 4. Depression 5. Spinal stenosis 6. Colonic polyposis 7. Allergic rhinitis 8. Gout 9. Vit D deficiency 10. Squamous cell carcinoma of the skin on L knee 11. DM 12. PAF (epistaxis with pradaxa. ASA 81mg per Dr. 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 Diastolic dysfunction (EF 65-70%) Surgical History 1. Tonsillectomy 2. Partial hysterectomy with unilateral oophorectomy 3. Cholecystectomy 4. Right TKA 5. EGD 6. Colonoscopy (Diverticulosis Dr. Irwin 12/31) 7. Cardiac cath (02/09/11, no stenosis but demonstrates small size arteries) Family History Father: at 55 yo. History of AAA and hypertension Mother: at 94 yo. History of hypertension and possibly breast CA Social History * Smoker: former Smoker Alcohol: Denies Drugs: denies A-FIB/CHADSVASC A-FIB History Current/History of A-Fib/PAF?: Yes Current PO Anticoag Therapy: No Treatment Other reason anticoagulant not: Bleeding. On aspirin instead Review of Systems Constitutional: Denies: Chills, Fever Eyes: Reports: Other (Blurry vision without glasses) ENT: Reports: Sore Throat (Dry) Skin: Reports: Rash (Groin ) Pulmonary: Reports: Dyspnea (with exertion), Cough (dry cough) Cardiovascular: Denies: Chest Pain Gastrointestinal: Denies: Abdominal Pain Genitourinary: Denies: Dysuria Musculoskeletal: Reports: Shoulder Pain (Left shoulder) Neurological: Denies: Numbness Psych: Reports: Depression, Memory Issues (poor memory) Physical Examination General Exam: Positive: Alert, Cooperative Eye Exam: Positive: EOMI; Negative: Sclera icteric Neck Exam: Positive: Supple Chest Exam: Positive: Clear to auscultation; Negative: Rales, Rhonchi, Wheezing Heart Exam: Positive: Rate Normal, Regular Rhythm Abdomen Exam: Positive: Normal bowel sounds, Soft; Negative: Tenderness Extremity Exam: Positive: Edema (mild) Neuro Exam: Positive: Normal Speech, Cranial Nerves 3-12 NL Psych Exam: Positive: Anxiety Vital Signs Vital Signs Date Time Temp Pulse Resp B/P (MAP) Pulse Ox O2 Delivery O2 Flow Rate FiO2 02/23/21 06:20 62 18 158/76 (103) 97 Room Air 02/23/21 05:14 97.9 Laboratory Data Labs 24H Laboratory Tests 2 02/23/21 08:38: Immature Granulocyte % (Auto) 0.4, Neutrophils (%) (Auto) 83.3H, Lymphocytes (%) (Auto) 10.7L, Monocytes (%) (Auto) 5.5, Eosinophils (%) (Auto) 0.0, Basophils (%) (Auto) 0.1, Neutrophils # (Auto) 9.6H, Lymphocytes # (Auto) 1.2L, Monocytes # (Auto) 0.6, Eosinophils # (Auto) 0.0, Basophils # (Auto) 0.0, Nucleated Red Blood Cells % (auto) 0.0, Anion Gap 9, Glomerular Filtration Rate 30.0L, Calcium Level 8.7L, Total Bilirubin 0.5, Aspartate Amino Transf (AST/SGOT) 46H, Alanine Aminotransferase (ALT/SGPT) 48, Alkaline Phosphatase 83, Total Protein 6.6, Albumin 3.1L, Albumin/Globulin Ratio 0.9L 02/23/21 10:37: CBC/BMP Laboratory Tests 02/23/21 08:38 Assessment/Plan Mrs. Lawrence is an 86 year old female from [facility] with gait instability who presents with a mechanical fall, then found to have a left humerus fracture. Patient normally walks with walker, but now with left arm in sling and immobilized, patient will need placement. Patient will be observed here. Otherwise, patient has osteopenia. will start calcium and Vitamin D. Ordering vitamin D level. Will need to adjust medication based on vitamin D levels. Plan / VTE VTE Prophylaxis Ordered?: Yes Plan Plan 1. Left humerus fracture -Left shoulder immobilization -Patient will need placement -Ordered for calcium and vitamin D -Will need to adjust vitamin D dosage based off of vitamin D level 2. Gait instability -Normally ambulates with a walker. Unable to do so with shoulder immobilized. -Need placement 3. Groin rash -Continue nystatin powder 4. Diastolic CHF -Echocardiogram in 2017 demonstrates diastolic dysfunction with EF 65%-70% -Continue spironolactone and Torsemide 5. PAF -Continue Flecainide and metoprolol tartrate -No AC due to bleed. On aspirin 81mg instead 6. Hypothyroidism -Continue levothyroxine 7. Hyperlipidemia -Continue atorvastatin 8. CKD stage 3/4 -Creatinine close to baseline 9. DVT ppx -Heparin Disposition: Pending placement LORETTA GRECO DO Feb 23, 2021 11:45
[2021-02-23] MEDS ORDERED: CALCIUM CARBONATE 500 MG CHEW U/D PO PRN (12:00)
[2021-02-23 12:17] VITALS: BP 190/69
[2021-02-23] MEDS: allopurinoL 100 MG TAB PO SCH (12:29)
[2021-02-23] MEDS: ASPIRIN 81MG ENTERIC TABLET PO SCH (12:32)
[2021-02-23] MEDS: TORSEMIDE 10 MG TABLET PO SCH (12:32)
[2021-02-23] MEDS: FLUoxetine 20 MG CAP PO SCH ×2 (12:32→21:01)
[2021-02-23] MEDS: VITAMIN D 1,000 INTERNATIONAL UNITS TABLET PO SCH (12:33)
[2021-02-23] MEDS: MULTIVITAMINS/MINERALS THERAP 1 TAB PO SCH (12:33)
[2021-02-23] MEDS: ACETAMINOPHEN TAB 650MG DOSE (2X325MG) PO PRN (12:33)
[2021-02-23] MEDS: METOPROLOL TART 12.5 MG PER 1/2 TAB PO SCH ×2 (12:34→21:00)
[2021-02-23] MEDS: MOM 30ML SUSPENSION UDC PO SCH (12:34)
[2021-02-23] MEDS: SPIRONOLACTONE 25 MG TAB PO SCH (12:34)
[2021-02-23] MEDS: HEPARIN SOD (PORCINE) 5000UNITS/ML 1ML VIAL/SYRINGE SQ SCH ×2 (12:35→21:01)
[2021-02-23 12:47] LABS: TOTAL 25(OH) VITAMIN D 27.8 NG/ML (30.0-100.0)
[2021-02-23 14:00] VITALS: BP 133/58
[2021-02-23] MEDS: NYSTATIN 100,000 UNITS/GM TOPICAL PWD 15 GM TOP SCH ×3 (14:04→21:02)
[2021-02-23] MEDS: FLECAINIDE 50MG TABLET PO SCH ×2 (14:04→21:01)
[2021-02-23] MEDS: POLYVINYL ALCOHOL OPHTH SOLN 15 ML(LIQUITEARS) OU SCH ×3 (14:04→21:01)
[2021-02-23] MEDS: FLUTICASONE PROP 0.05% NASAL SPRAY 16 GM (FLONASE) SCH ×2 (14:04→21:01)
[2021-02-23] MEDS ORDERED: ATORVASTATIN 10 MG TAB PO SCH (21:00)
[2021-02-23] MEDS ORDERED: QUEtiapine FUMARATE 25 MG TAB PO SCH (21:00)
[2021-02-23 22:00] VITALS: BP 156/72
[2021-02-24] MEDS: ACETAMINOPHEN TAB 650MG DOSE (2X325MG) PO PRN (05:41)
[2021-02-24] MEDS: LEVOTHYROXINE 50MCG TABLET (0.05MG) PO SCH (05:42)
[2021-02-24 06:53] VITALS: BP 156/75
[2021-02-24 08:29] LABS: HEMATOCRIT 26.5 % (36.0-47.0); HEMOGLOBIN 8.8 g/dl (12.0-15.5); MEAN CORPUSCULAR HEMOGLOBIN 34.5 pg (27.0-33.0); MEAN CORPUSCULAR HGB CONC 33.2 g/dl (32.0-36.5); MEAN CORPUSCULAR VOLUME 103.9 fl (80.0-96.0); PLATELET COUNT, AUTOMATED 157 10^3/uL (150-450); RED BLOOD COUNT 2.55 10^6/uL (4.00-5.40); WHITE BLOOD COUNT 11.3 10^3/uL (4.0-10.0)
[2021-02-24] MEDS: MULTIVITAMINS/MINERALS THERAP 1 TAB PO SCH (08:36)
[2021-02-24] MEDS: MOM 30ML SUSPENSION UDC PO SCH (08:36)
[2021-02-24] MEDS: FLUoxetine 20 MG CAP PO SCH (08:36)
[2021-02-24] MEDS: TORSEMIDE 10 MG TABLET PO SCH (08:37)
[2021-02-24] MEDS: allopurinoL 100 MG TAB PO SCH (08:37)
[2021-02-24] MEDS: VITAMIN D 1,000 INTERNATIONAL UNITS TABLET PO SCH (08:37)
[2021-02-24] MEDS: FLECAINIDE 50MG TABLET PO SCH (08:37)
[2021-02-24] MEDS: HEPARIN SOD (PORCINE) 5000UNITS/ML 1ML VIAL/SYRINGE SQ SCH (08:38)
[2021-02-24] MEDS: SPIRONOLACTONE 25 MG TAB PO SCH (08:40)
[2021-02-24] MEDS: POLYVINYL ALCOHOL OPHTH SOLN 15 ML(LIQUITEARS) OU SCH ×2 (08:41→13:00)
[2021-02-24] MEDS: FLUTICASONE PROP 0.05% NASAL SPRAY 16 GM (FLONASE) SCH (08:41)
[2021-02-24] MEDS: ASPIRIN 81MG ENTERIC TABLET PO SCH (08:41)
[2021-02-24] MEDS: NYSTATIN 100,000 UNITS/GM TOPICAL PWD 15 GM TOP SCH ×2 (08:42→13:00)
[2021-02-24 08:52] LABS: CALCIUM LEVEL 8.7 MG/DL (8.8-10.2); CREATININE FOR GFR 1.55 MG/DL (0.55-1.30); GLOMERULAR FILTRATION RATE 33.6 (>32); POTASSIUM SERUM 5.1 MEQ/L (3.5-5.1)
[2021-02-24 10:09] VITALS: BP 136/47
[2021-02-24] MEDS: METOPROLOL TART 12.5 MG PER 1/2 TAB PO SCH (10:09)
--- NOTE | 2021-02-24 13:30 | DS.PDOC ---
Discharge Summary General Date of Admission Feb 23, 2021 at 00:31 Date of Discharge 02/24/2021 Primary Care Physician: Ricky Jama MD Attending Physician: KATELYNN MATA DO Discharge Summary PROCEDURES PERFORMED DURING STAY: None. ADMITTING DIAGNOSES: 1. Left humerus fracture. 2. Gait instability 3. Groin rash 4. Diastolic congestive heart failure 5. Paroxysmal atrial fibrillation 6. Hypothyroidism 7. Hyperlipidemia 8. Chronic kidney disease stage III/IV DISCHARGE DIAGNOSES: 1. Left humerus fracture. 2. Gait instability 3. Groin rash 4. Diastolic congestive heart failure 5. Paroxysmal atrial fibrillation 6. Hypothyroidism 7. Hyperlipidemia 8. Chronic kidney disease stage III/IV COMPLICATIONS/CHIEF COMPLAINT: Fall With Injury, Humerus Fracture. HISTORY OF PRESENT ILLNESS: Patient is an 86-year-old female who presented from [facility] after mechanical fall. Patient was found to have a left humerus fracture. Patient normally walks with a walker but now has her left arm immobilized in a sling. Patient was admitted for observation. Dr. Cooney who admitted the patient touched base with orthopedic surgery who recommended no surgical intervention and to have the patient in a sling. HOSPITAL COURSE: Patient was doing well at this time. Patient did well overnight. Patient's pain is controlled. Patient will be discharged back to [facility] for continued care. DISCHARGE MEDICATIONS: Please see below. ALLERGIES: Please see below. PHYSICAL EXAMINATION ON DISCHARGE: VITAL SIGNS: Please see below. General: Alert and oriented female patient who was laying in bed when I walked in the room. Patient not appear to be in any acute distress. HEENT: Normocephalic, atraumatic, moist mucous membranes. Cardiac: Irregularly irregular rhythm with a nontachycardic rate, no murmurs, normal S1, normal S2 Pulm: Clear to auscultation bilaterally. No wheezes, rhonchi, rales Abd: Nondistended, nontender to palpation, normal bowel sounds Ext: No edema bilateral lower extremities Musculoskeletal: There was extensive bruising over the left shoulder. LABORATORY DATA: Please see below. IMAGING: An x-ray of the lumbar spine performed on 02/23/2021 was reported to show severe multilevel degenerative disease. X-ray of the left ribs with PA chest performed on 02/23/2021 was reported to show no definite acute rib fractures. X-ray of the left shoulder was performed on 02/23/2021 and reported to show acute fracture of the left humeral neck. X-ray of the left humerus performed on 02/23/2021 was reported to show redemonstration of left humeral neck fracture. PROGNOSIS: Fair ACTIVITY: As tolerated, remain in sling per orthopedic surgery. DIET: 2 g sodium diet DISCHARGE PLAN: Follow-up with your provider at [facility]. Follow-up with orthopedic surgery in the next 1 to 2 weeks and follow their instructions for continued care of the humeral fracture DISCHARGE INSTRUCTIONS: 1. Follow-up with your provider at [facility] and follow-up with orthopedic surgery in the next 1 to 2 weeks and follow their instructions for continued care of the humeral fracture.. ITEMS TO FOLLOWUP ON ON OUTPATIENT: 1. Continued monitoring and treatment for humeral fracture. DISCHARGE CONDITION: Stable. TIME SPENT ON DISCHARGE: Greater than 30 minutes. Vital Signs/I&Os Vital Signs Date Time Temp Pulse Resp B/P (MAP) Pulse Ox O2 Delivery O2 Flow Rate FiO2 02/24/21 10:09 77 136/47 02/24/21 06:53 97.7 16 97 Room Air I&O- Last 24 Hours up to 6 AM 02/24/21 06:00 Intake Total 720 ml Balance 720 ml Laboratory Data Labs 24H Laboratory Tests 2 02/24/21 08:16: Nucleated Red Blood Cells % (auto) 0.0, Anion Gap 7L, Glomerular Filtration Rate 33.6, Calcium Level 8.7L CBC/BMP Laboratory Tests 02/24/21 08:16 Discharge Medications Scheduled Acetaminophen (Tylenol) 325 Mg Tablet, 650 MG PO TID, (Reported) 0800, 1200, 2000 Allopurinol (Allopurinol) 100 Mg Tablet, 100 MG PO DAILY, (Reported) Aspirin (Aspirin EC) 81 Mg Tab, 81 MG PO DAILY, (Reported) Atorvastatin Calcium (Lipitor) 10 Mg Tab, 10 MG PO QHS, (Reported) Flecainide Acetate (Flecainide Acetate) 50 Mg Tab, 50 MG PO BID, (Reported) Fluoxetine Hcl (Fluoxetine HCl) 40 Mg Cap, 40 MG PO BID, (Reported) Fluticasone Propionate (Flonase Allergy Relief) 9.9 Ml [place].susp, 1 SPRAY NA BID, (Reported) Levothyroxine Sodium (Levothyroxine Sodium) 50 Mcg Tab, 50 MCG PO DAILY, ( Reported) TAKES AT 1000 Metoprolol Tartrate (Metoprolol Tartrate) 25 Mg Tab, 12.5 MG PO BID, (Reported) Milk Of Magnesia (Milk of Magnesia) 2,400 Mg/10 Ml Oral.susp, 5 ML PO DAILY, (Reported) Multivitamins (Thera M Plus Tablet) 1 Each Tablet, 1 TAB PO DAILY, (Reported) Nystatin (Nystatin Powder) 100,000 Unit/Gm Pow, 1 DOSE TOP QID, (Reported) APPLY A LIGHT DUSTING TO INTERGLUTEAL AREA Propylene Glycol/Peg 400 (Systane 0.3-0.4% Eye Drops) 15 Ml Evi, 1 DROP OU QID, (Reported) Quetiapine Fumarate (Quetiapine Fumarate) 25 Mg Tablet, 75 MG PO QHS, (Reported) Spironolactone (Spironolactone) 25 Mg Tab, 25 MG PO DAILY, (Reported) Torsemide (Torsemide) 20 Mg Tablet, 30 MG PO DAILY, (Reported) Scheduled PRN Acetaminophen (Acetaminophen) 325 Mg Tab, 650 MG PO Q4H PRN for PAIN, (Reported) Acetaminophen (Tylenol) 325 Mg Tablet, 650 MG PO Q4H PRN for PAIN LEVEL 1-5, (Reported) Allergies Coded Allergies: TAPE (Verified Allergy, Intermediate, RASH, 07/23/19) dabigatran etexilate (Verified Allergy, Unknown, 07/23/19) meperidine (Verified Adverse Reaction, Mild, VOMITING, 07/23/19) KATELYNN MATA DO Feb 24, 2021 13:30
== END 2021-02-24 12:45 ==
LOC: M ED 00:30 → M ED INP 00:31 → ENRESERV 10:32 → M MS5PR 12:18
PROVIDERS: ADMIT Internal Medicine; ATTEND Family Medicine
DX: S42.402A Unspecified fracture of lower end of left humerus, initial encounter for closed fracture (principal); R26.89 Other abnormalities of gait and mobility; W19.XXXA Unspecified fall, initial encounter; Y92.121 Bathroom in nursing home as the place of occurrence of the external cause; Y93.9 Activity, unspecified; Y99.9 Unspecified external cause status; R21 Rash and other nonspecific skin eruption; I50.30 Unspecified diastolic (congestive) heart failure; I11.0 Hypertensive heart disease with heart failure; I48.0 Paroxysmal atrial fibrillation; E03.9 Hypothyroidism, unspecified; E78.49 Other hyperlipidemia; N18.30 Chronic kidney disease, stage 3 unspecified; Z79.82 Long term (current) use of aspirin; Z79.899 Other long term (current) drug therapy; Z88.8 Allergy status to other drugs, medicaments and biological substances
CPT/HCPCS: 36415; 71101; 72110; 73030; 73060; 80048; 80053; 82306; 85025; 85027; 87631; 96372; 96374; 96375; 97161; 99285; G0378; J1644; J2405; J3010

== ENCOUNTER → 2021-02-24 | Outpatient (REF) | payer MEDICARE ==
[~2021-02-24] MED LIST changes: +ACET-907 PO; +ALLO100T PO; +MOM30SS PO
== END ==
PROVIDERS: ATTEND Family Medicine
DX: E78.5 Hyperlipidemia, unspecified (principal); I12.9 Hypertensive chronic kidney disease with stage 1 through stage 4 chronic kidney disease, or unspecified chronic kidney disease; N18.32 Chronic kidney disease, stage 3b; R41.3 Other amnesia; G47.10 Hypersomnia, unspecified; Z53.8 Procedure and treatment not carried out for other reasons

== ENCOUNTER 2021-03-03 14:57 | Observation (INO) | payer MEDICARE ==
[2021-03-03] VITALS (7 sets, daily range): BP systolic 156–202; BP diastolic 67–92
[~2021-03-03] VITALS: Ht 167.6 cm; Wt 85.4 kg
[~2021-03-03 14:57] MED LIST changes: -ENEMENE PR; -MILKSUS3 PO; -OMEP1CAP73 PO; -TRAM50TA2 PO
--- NOTE | 2021-03-03 15:50 | REP ---
INDICATION: weakness. COMPARISON: Comparison chest x-ray February 23, 2021.. TECHNIQUE: Semi-erect AP portable chest x-ray. FINDINGS: An impacted surgical neck fracture is again seen in the left proximal humerus. No other acute bony abnormality is seen. There is mild cardiomegaly again noted unchanged. Pulmonary vasculature is somewhat cephalized. Right hemidiaphragm remains elevated. Pleural angles are sharp. No infiltrate is seen. Oxygen delivery tubing and EKG electrodes are seen. IMPRESSION: Cardiac enlargement. Elevated right hemidiaphragm. No acute infiltrate. Impacted fracture left proximal humerus again noted.. <Electronically signed by Titi Gibson > 03/03/21 [id number]
--- NOTE | 2021-03-03 15:52 | REP ---
INDICATION: left hip pain/bruising; s/p fall. COMPARISON: Comparison radiograph February 23, 2021 and June 22, 2019.. TECHNIQUE: AP view of the pelvis and AP and frogleg views of the left hip are provided. FINDINGS: There is mild femoroacetabular spurring on the left. Vascular calcification is noted. No hip fracture is seen on either side. Bony pelvic ring is intact. There are degenerative disc changes in the lumbar spine. There is osteoarthritis at the right hip is well unchanged from the comparison study. IMPRESSION: No traumatic abnormality noted. <Electronically signed by Titi Gibson > 03/03/21 [id number]
[2021-03-03 16:45] LABS: BASO % 0.3 % (0.0-1.0); EOS # 0.3 10^3/uL (0.0-0.5); EOS % 4.3 % (0.0-3.0); HEMATOCRIT 23.7 % (36.0-47.0); HEMOGLOBIN 7.5 g/dl (12.0-15.5); LYMPH # 1.5 10^3/uL (1.5-5.0); LYMPH % 19.6 % (24.0-44.0); MEAN CORPUSCULAR HEMOGLOBIN 34.9 pg (27.0-33.0); MEAN CORPUSCULAR HGB CONC 31.6 g/dl (32.0-36.5); MEAN CORPUSCULAR VOLUME 110.2 fl (80.0-96.0); MONO # 0.9 10^3/uL (0.0-0.8); MONO % 11.6 % (2.0-8.0); NEUTROPHILS % 62.9 % (36.0-66.0); PLATELET COUNT, AUTOMATED 282 10^3/uL (150-450); RED BLOOD COUNT 2.15 10^6/uL (4.00-5.40); WHITE BLOOD COUNT 7.9 10^3/uL (4.0-10.0)
[2021-03-03 16:55] LABS: INR 0.96
[2021-03-03 17:15] LABS: ALBUMIN 2.6 GM/DL (3.2-5.2); ALT/SGPT 42 U/L (12-78); BILIRUBIN,DIRECT 0.2 MG/DL (0.0-0.2); BILIRUBIN,TOTAL 0.6 MG/DL (0.2-1.0); BLOOD UREA NITROGEN 66 MG/DL (7-18); CALCIUM LEVEL 8.1 MG/DL (8.8-10.2); CARBON DIOXIDE LEVEL 29 MEQ/L (21-32); CHLORIDE LEVEL 101 MEQ/L (98-107); CREATININE FOR GFR 1.84 MG/DL (0.55-1.30); GLOMERULAR FILTRATION RATE 27.6 (>32); GLUCOSE, FASTING 105 MG/DL (70-100); POTASSIUM SERUM 5.3 MEQ/L (3.5-5.1); SODIUM LEVEL 135 MEQ/L (136-145)
[2021-03-03] MEDS ORDERED: OMEP1CAP73 PO (19:07)
[2021-03-03] MEDS ORDERED: DULC10SU2 PR (19:07)
[2021-03-03] MEDS ORDERED: TRAM50TA2 PO (19:07)
[2021-03-03] MEDS ORDERED: MILKSUS3 PO (19:07)
[2021-03-03] MEDS ORDERED: ENEMENE PR (19:07)
[2021-03-03 19:10] LABS: RSV AMPLIFICATION NEGATIVE (NEGATIVE)
[2021-03-03 19:22] LABS: FERRITIN 201 NG/ML (8-252); FOLATE > 24.0 NG/ML; IRON (FE) 65 UG/DL (50-170); PERCENT SATURATION 23.1 % (13.2-45.0); TOTAL IRON BINDING CAPACITY 281 UG/DL (250-450); VITAMIN B12 LEVEL 480 PG/ML
--- NOTE | 2021-03-03 20:54 | ECGEPIP ---
[facility] - ED Test Date: 2021-03-03 Pat Name: DARRIUS MCGARRY Department: Room: - Gender: Female Tabular Typist: LR : [id number] Requested By: ELAINE BLANCO Order Number: [id number] Reading MD: Tello Reynolds Measurements Intervals Dana Rate: 58 P: 67 [place]: 212 QRS: 8 QRSD: 108 T: 59 QT: 484 QTc: 475 Interpretive Statements Sinus bradycardia with sinus arrhythmia with 1st degree AV block Possible Anterior infarct , age undetermined MODERATE INTRAVENTRICULAR CONDUCTION DELAY SIMILAR TO 12/19/19 Electronically Signed on 03-03-2021 20:54:36 EDT by Tello Reynolds
[2021-03-03] MEDS: NYSTATIN 100,000 UNITS/GM TOPICAL PWD 15 GM TOP SCH (21:00)
[2021-03-03] MEDS ORDERED: ATORVASTATIN 10 MG TAB PO SCH (21:00)
[2021-03-03] MEDS: FLUTICASONE PROP 0.05% NASAL SPRAY 16 GM (FLONASE) SCH (21:00)
[2021-03-03] MEDS ORDERED: QUEtiapine FUMARATE 25 MG TAB PO SCH (21:00)
[2021-03-03] MEDS ORDERED: FUROSEMIDE 100MG/10ML VIAL (J1940) IV ONE (21:00)
[2021-03-03] MEDS: POLYVINYL ALCOHOL OPHTH SOLN 15 ML(LIQUITEARS) OU SCH (21:00)
[2021-03-03] MEDS ORDERED: traMADol 50 MG TAB PO PRN (23:15)
[2021-03-03] MEDS ORDERED: ACETAMINOPHEN TAB 650MG DOSE (2X325MG) PO PRN (23:25)
[2021-03-03] MEDS: FLUoxetine 20 MG CAP PO SCH (23:46)
[2021-03-03] MEDS: METOPROLOL TART 12.5 MG PER 1/2 TAB PO SCH (23:48)
--- NOTE | 2021-03-04 00:09 | HPEPDOC ---
General Date of Admission 03/03/21 Date of Service: Mar 03, 2021 Chief Complaint The patient is a 86-year-old female admitted with a reason for visit of Abnormal Labs. Source: Patient, RN/MD History of Present Illness 86-year-old female resident of [facility] with multiple medical problems including diabetes, hypertension, hyperlipidemia, CKD stage IV, chronic anemia, untreated MARIVEL, gout recent left humerus fracture on 02/23/2021 was sent to the emergency room for abnormal lab work. Patient's CBC showed a hemoglobin of 7.7 this morning and it was 8.8 a week ago when the patient was in the hospital after the fracture. On the day of fall and fracture her hemoglobin was 10.8. Repeat lab work in the emergency room showed a hemoglobin of 7.5. Guaiac done in the emergency room was negative. Patient complained of weakness and dizziness sometimes. complained of severe pain at the site of the left humerus fracture, dull aching in type, could not rate the pain. Also complained of pain at the left hip and left buttock since her fall , dull aching in nature with intensity of 5/10. She reported that she has a very large bruise on the left hip and left lower back as well as the left arm. Patient is admitted for anemia work up. Home Medications Scheduled Acetaminophen (Tylenol) 325 Mg Tablet, 650 MG PO TID, (Reported) 0800, 1200, 2000 Allopurinol (Allopurinol) 100 Mg Tablet, 100 MG PO DAILY, (Reported) Aspirin (Aspirin EC) 81 Mg Tab, 81 MG PO DAILY, (Reported) Atorvastatin Calcium (Lipitor) 10 Mg Tab, 10 MG PO QHS, (Reported) Flecainide Acetate (Flecainide Acetate) 50 Mg Tab, 50 MG PO BID, (Reported) Fluoxetine Hcl (Fluoxetine HCl) 40 Mg Cap, 40 MG PO BID, (Reported) Fluticasone Propionate (Flonase Allergy Relief) 9.9 Ml [place].susp, 1 SPRAY NA BID, (Reported) Levothyroxine Sodium (Levothyroxine Sodium) 50 Mcg Tab, 50 MCG PO DAILY, (Reported) TAKES AT 1000 Metoprolol Tartrate (Metoprolol Tartrate) 25 Mg Tab, 12.5 MG PO BID, (Reported) Milk Of Magnesia (Milk of Magnesia) 2,400 Mg/10 Ml Oral.susp, 10 ML PO DAILY, (Reported) Multivitamins (Thera M Plus Tablet) 1 Each Tablet, 1 TAB PO DAILY, (Reported) Nystatin (Nystatin Powder) 100,000 Unit/Gm Pow, 1 DOSE TOP QID, (Reported) APPLY TO INTERGLUTEAL AREA Omeprazole (Omeprazole) 20 Mg Capsule.dr, 20 MG PO DAILY, (Reported) Propylene Glycol/Peg 400 (Systane 0.3-0.4% Eye Drops) 15 Ml Evi, 1 DROP OU QID, (Reported) Quetiapine Fumarate (Quetiapine Fumarate) 25 Mg Tablet, 75 MG PO QHS, (Reported) Spironolactone (Spironolactone) 25 Mg Tab, 25 MG PO DAILY, (Reported) Torsemide (Torsemide) 20 Mg Tablet, 30 MG PO DAILY, (Reported) Tramadol HCl (Tramadol HCl) 50 Mg Tablet, 50 MG PO BID, (Reported) Scheduled PRN Acetaminophen (Acetaminophen) 325 Mg Tab, 650 MG PO Q4H PRN for PAIN, (Reported) Bisacodyl (Dulcolax) 10 Mg Supp.rect, 10 MG ND DAILY PRN for CONSTIPATION, (Reported) Magnesium Hydroxide (Milk of Magnesia) 400 Mg/5 Ml Oral.susp, 30 ML PO DAILY PRN for CONSTIPATION, (Reported) Sodium Phosphate,Rice-Dibasic (Enema) 133 Ml Enema, 1 MAMI ND DAILY PRN for CONSTIPATION, (Reported) Allergies Coded Allergies: TAPE (Verified Allergy, Intermediate, RASH, 07/23/19) dabigatran etexilate (Verified Allergy, Unknown, 07/23/19) meperidine (Verified Adverse Reaction, Mild, VOMITING, 07/23/19) Past Medical History Medical History Left humerus fracture 02/23/21 Gait instability Diastolic congestive heart failure Paroxysmal atrial fibrillation Hypothyroidism Hyperlipidemia Hypertension with hypertensive heart disease Diabetes Chronic kidney disease stage IV Chronic anemia Diverticulosis MARIVEL untreated as patient cannot tolerate the mask Depression Spinal stenosis with epidural injections in the past Allergic rhinitis Gout Vitamin D deficiency 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 Surgical History TONSILLECTOMY CHILD PARTIAL HYSTERECTOMY WITH UNILATERAL OOPHORECTOMY 1973 CHOLECYSTECTOMY 1978 R TKA 2000 EGD 12/2007 COLONOSCOPY - DIVERTICULOSIS, tortuous and fixed sigmoid colon REINDL 12/31 CARDIAC CATH IN 2012 negative for obstruction CAD> Family History FATHER: 55 YRS, OF AAA; WAS ALSO KNOWN TO HAVE HTN MOTHER: 94 YRS, OLD AGE AND POSSIBLE BREAST CA (REFUSED W/U OR TREATMENT); WAS ALSO KNOWN TO HAVE HTN BROTHER (1) - CAD S/P [place] AT 35 YO, SPINAL STENOSIS Social History * Smoker: former Smoker Alcohol: Denies Drugs: denies A-FIB/CHADSVASC A-FIB History Current/History of A-Fib/PAF?: Yes Current PO Anticoag Therapy: Yes Review of Systems Constitutional: Reports: Weakness, Fatigue; Denies: Chills, Fever, Night Sweats Eyes: Denies: Pain, Vision change ENT: Denies: Head Aches, Ear Pain, Dysphagia Skin: Reports: Bruising; Denies: Rash, Lesions Pulmonary: Denies: Dyspnea, Cough Cardiovascular: Reports: Edema, Lt Headedness; Denies: Chest Pain, Palpitations, Orthopnea Gastrointestinal: Denies: Nausea, Vomiting, Abdominal Pain, Diarrhea Genitourinary: Reports: Incontinence; Denies: Hematuria, Retention Hematologic: Denies: Bleeding Excessively, Petecchia, Purpura Musculoskeletal: Reports: Back Pain, Arm Pain, Joint Pain Physical Examination General Exam: Positive: Alert, Cooperative, No Acute Distress, Other (very hard of hearing) Eye Exam: Positive: PERRLA, Conjunctiva & lids normal, EOMI; Negative: Sclera icteric ENT Exam: Positive: Atraumatic, Mucous membr. moist/pink, Pharynx Normal Neck Exam: Positive: Supple; Negative: JVD, thyromegaly Chest Exam: Positive: Clear to auscultation, Diminished (over all.), Other (Bilateral basal crackles. ) Heart Exam: Positive: Rate Normal, Regular Rhythm, Normal S1, Normal S2; Negative: Murmurs, Rubs Telemetry: Positive: No significant arrhythmia Abdomen Exam: Positive: Normal bowel sounds, Soft, Hepatospenomegaly, Other (obese); Negative: Tenderness Extremity Exam: Positive: Edema; Negative: Clubbing, Cyanosis Skin Exam: Positive: Other skin issue (very large hematoma at mindy left lateral hip, extending to the left buttock , hematoma at the left upper arm. ) Neuro Exam: Positive: Normal Speech, Strength at 5/5 X4 ext Vital Signs Vital Signs Date Time Temp Pulse Resp B/P (MAP) Pulse Ox O2 Delivery O2 Flow Rate FiO2 03/03/21 15:15 97.2 58 21 166/77 (106) 100 Laboratory Data Labs 24H Laboratory Tests 2 03/03/21 16:26: Immature Granulocyte % (Auto) 1.3, Neutrophils (%) (Auto) 62.9, Lymphocytes (%) (Auto) 19.6L, Monocytes (%) (Auto) 11.6H, Eosinophils (%) (Auto) 4.3H, Basophils (%) (Auto) 0.3, Neutrophils # (Auto) 5.0, Lymphocytes # (Auto) 1.5, Monocytes # (Auto) 0.9H, Eosinophils # (Auto) 0.3, Basophils # (Auto) 0.0, Nucleated Red Blood Cells % (auto) 0.0, Prothrombin Time 13.0, Prothromb Time International Ratio 0.96, Activated Partial Thromboplast Time 26.0, Anion Gap 5L, Glomerular Filtration Rate 27.6L, Calcium Level 8.1L, Total Bilirubin 0.6, Direct Bilirubin 0.2, Aspartate Amino Transf (AST/SGOT) 46H, Alanine Aminotransferase (ALT/SGPT) 42, Alkaline Phosphatase 78, Total Protein 6.0L, Albumin 2.6L, Albumin/Globulin Ratio 0.8L CBC/BMP Laboratory Tests 03/03/21 16:26 Assessment/Plan 86-year-old female resident of [facility] with multiple medical problems including diabetes, hypertension, hyperlipidemia, CKD stage IV, chronic anemia, untreated MARIVEL, gout recent left humerus fracture on 02/23/2021 was sent to the emergency room for abnormal lab work. Patient's CBC showed a hemoglobin of 7.7 this morning and it was 8.8 a week ago when the patient was in the hospital after the fracture. On the day of fall and fracture her hemoglobin was 10.8. Repeat lab work in the emergency room showed a hemoglobin of 7.5. Guaiac done in the emergency room was negative. Patient complained of weakness and dizziness sometimes. complained of severe pain at the site of the left humerus fracture, dull aching in type, could not rate the pain. Also complained of pain at the left hip and left buttock since her fall , dull aching in nature with intensity of 5/10. She reported that she has a very large bruise on the left hip and left lower back as well as the left arm. Patient is admitted for anemia work up. Anemia/ blood loss in large hematomas. Multifactorial: Anemia of chronic kidney disease, iron deficiency TSAT< 30 and ferritin < 500 in CKD patients and blood loss in the hematomas at the left hip and left flank, left arm after the fall 2 units of prbc transfusion with lasix in between No vit B12 or folate deficiency. May need erythropoietin Paroxysmal A fib sinus rhythm on admission flecainide, metoprolol CKD stage 4 creatinine close to baseline continue torsemide, spironolactone. will consult nephrology. Diabetes Hypertension GERD PPI Hypothyroid synthroid Dementia with depression seroquel, fluoxetine. HLD statin Gout/ hyperuricemia allopurinol. Recent fall and left humerus # with large hematoma ot left hip and left flanks LEft arm remains in sling. pain control with tramadol and typenol. Plan / VTE VTE Prophylaxis Ordered?: Yes KASEY IRIZARRY MD Mar 03, 2021 18:05
[2021-03-04] MEDS: FLECAINIDE 50MG TABLET PO SCH ×2 (00:35→09:11)
[2021-03-04 06:00] VITALS: BP 160/70
[2021-03-04] MEDS ORDERED: ASPIRIN 81MG ENTERIC TABLET PO SCH (09:00)
[2021-03-04] MEDS ORDERED: TORSEMIDE 20 MG TAB PO SCH (09:00)
[2021-03-04] MEDS ORDERED: SPIRONOLACTONE 25 MG TAB PO SCH (09:00)
[2021-03-04] MEDS ORDERED: MOM 30ML SUSPENSION UDC PO SCH (09:00)
[2021-03-04] MEDS ORDERED: allopurinoL 100 MG TAB PO SCH (09:00)
[2021-03-04] MEDS ORDERED: OMEPRAZOLE 20 MG CAP PO SCH (09:00)
[2021-03-04] MEDS ORDERED: ACETAMINOPHEN TAB 650MG DOSE (2X325MG) PO SCH (09:00)
[2021-03-04] MEDS: FLUTICASONE PROP 0.05% NASAL SPRAY 16 GM (FLONASE) SCH (09:11)
[2021-03-04] MEDS: NYSTATIN 100,000 UNITS/GM TOPICAL PWD 15 GM TOP SCH ×2 (09:11→13:04)
[2021-03-04] MEDS: POLYVINYL ALCOHOL OPHTH SOLN 15 ML(LIQUITEARS) OU SCH ×2 (09:11→13:04)
[2021-03-04 09:12] VITALS: BP 160/70
[2021-03-04] MEDS: FLUoxetine 20 MG CAP PO SCH (09:12)
[2021-03-04] MEDS: METOPROLOL TART 12.5 MG PER 1/2 TAB PO SCH (09:12)
[2021-03-04 09:17] LABS: BASO % 0.5 % (0.0-1.0); EOS # 0.4 10^3/uL (0.0-0.5); EOS % 4.4 % (0.0-3.0); HEMATOCRIT 29.5 % (36.0-47.0); HEMOGLOBIN 9.8 g/dl (12.0-15.5); LYMPH # 1.3 10^3/uL (1.5-5.0); LYMPH % 15.6 % (24.0-44.0); MEAN CORPUSCULAR HEMOGLOBIN 33.6 pg (27.0-33.0); MEAN CORPUSCULAR HGB CONC 33.2 g/dl (32.0-36.5); MONO % 11.5 % (2.0-8.0); NEUTROPHILS # 5.6 10^3/uL (1.5-8.5); NEUTROPHILS % 66.8 % (36.0-66.0); PLATELET COUNT, AUTOMATED 261 10^3/uL (150-450); RED BLOOD COUNT 2.92 10^6/uL (4.00-5.40); WHITE BLOOD COUNT 8.4 10^3/uL (4.0-10.0)
[2021-03-04 09:32] LABS: CALCIUM LEVEL 8.3 MG/DL (8.8-10.2); CREATININE FOR GFR 1.44 MG/DL (0.55-1.30); GLOMERULAR FILTRATION RATE 36.6 (>32)
[2021-03-04] MEDS ORDERED: LEVOTHYROXINE 50MCG TABLET (0.05MG) PO SCH (10:00)
[2021-03-04] MEDS ORDERED: TORS20TA2 PO (10:12)
--- NOTE | 2021-03-04 13:01 | IPNPDOC ---
Subjective Date Seen The patient was seen on 03/04/21. Subjective Chief Complaint/HPI Feels much better today. No complaints except that her legs are weak and she cannot move well because of the broken arm. She does have significant tenderness at the left hip and left flank at the site of the huge hematoma. Objective Physical Examination General Exam: Positive: Alert, Cooperative, No Acute Distress, Other (very hard of hearing) Eye Exam: Positive: PERRLA, Conjunctiva & lids normal, EOMI; Negative: Sclera icteric ENT Exam: Positive: Atraumatic, Mucous membr. moist/pink, Pharynx Normal Neck Exam: Positive: Supple; Negative: JVD, thyromegaly Chest Exam: Positive: Clear to auscultation, Diminished (over all.), Other (Bilateral basal crackles. ) Heart Exam: Positive: Rate Normal, Regular Rhythm, Normal S1, Normal S2; Negative: Murmurs, Rubs Telemetry: Positive: No significant arrhythmia Abdomen Exam: Positive: Normal bowel sounds, Soft, Hepatospenomegaly, Other (obese); Negative: Tenderness Extremity Exam: Positive: Edema; Negative: Clubbing, Cyanosis Skin Exam: Positive: Other skin issue (very large hematoma at mindy left lateral hip, extending to the left buttock , hematoma at the left upper arm. ) Neuro Exam: Positive: Normal Speech, Strength at 5/5 X4 ext Assessment /Plan Assessment 86-year-old female resident of [facility] with multiple medical problems including diabetes, hypertension, hyperlipidemia, CKD stage IV, chronic anemia, untreated MARIVEL, gout recent left humerus fracture on 02/23/2021 was sent to the emergency room for abnormal lab work. Patient's CBC showed a hemoglobin of 7.7 this morning and it was 8.8 a week ago when the patient was in the hospital after the fracture. On the day of fall and fracture her hemoglobin was 10.8. Repeat lab work in the emergency room showed a hemoglobin of 7.5. Guaiac done in the emergency room was negative. Patient complained of weakness and dizziness sometimes. complained of severe pain at the site of the left humerus fracture, dull aching in type, could not rate the pain. Also complained of pain at the left hip and left buttock since her fall , dull aching in nature with intensity of 5/10. She reported that she has a very large bruise on the left hip and left lower back as well as the left arm. Patient is admitted for anemia work up. Anemia/ blood loss in large hematomas. Multifactorial: Anemia of chronic kidney disease, iron deficiency TSAT< 30 and ferritin < 500 in CKD patients and blood loss in the hematomas at the left hip and left flank, left arm after the fall No vit B12 or folate deficiency. Received 2 units of PRBC with appropriate improvement in hemoglobin Paroxysmal A fib sinus rhythm on admission flecainide, metoprolol CKD stage 4 creatinine close to baseline continue torsemide, spironolactone. Follow-up with physician relations manager and output History of diabetes Not on any meds Hypertension Continue home meds metoprolol and diuretics GERD PPI Hypothyroid synthroid Dementia with depression seroquel, fluoxetine. HLD statin Gout/ hyperuricemia allopurinol. Recent fall and left humerus # with large hematoma ot left hip and left flanks LEft arm remains in sling. pain control with tramadol and typenol. Dispo; back to [facility] today. Follow-up with nephrology as an outpatient. Plan/VTE VTE Prophylaxis Ordered?: Yes VS, I&O, 24H, Fishbone Vital Signs/I&O Vital Signs Date Time Temp Pulse Resp B/P (MAP) Pulse Ox O2 Delivery O2 Flow Rate FiO2 03/04/21 09:12 64 160/70 03/04/21 06:00 98.0 20 92 03/03/21 22:12 Room Air 03/03/21 18:57 2.0 I&O- Last 24 Hours up to 6 AM 03/04/21 06:00 Intake Total 1195 ml Balance 1195 ml Laboratory Data 24H LABS Laboratory Tests 2 03/03/21 16:26: Immature Granulocyte % (Auto) 1.3, Neutrophils (%) (Auto) 62.9, Lymphocytes (%) (Auto) 19.6L, Monocytes (%) (Auto) 11.6H, Eosinophils (%) (Auto) 4.3H, Basophils (%) (Auto) 0.3, Neutrophils # (Auto) 5.0, Lymphocytes # (Auto) 1.5, Monocytes # (Auto) 0.9H, Eosinophils # (Auto) 0.3, Basophils # (Auto) 0.0, Nucleated Red Blood Cells % (auto) 0.0, Prothrombin Time 13.0, Prothromb Time International Ratio 0.96, Activated Partial Thromboplast Time 26.0, Anion Gap 5L, Glomerular Filtration Rate 27.6L, Calcium Level 8.1L, Iron Level 65, Total Iron Binding Capacity 281, Transferrin % Saturation 23.1, Ferritin 201, Total Bilirubin 0.6, Direct Bilirubin 0.2, Aspartate Amino Transf (AST/SGOT) 46H, Alanine Aminotransferase (ALT/SGPT) 42, Alkaline Phosphatase 78, Total Protein 6.0L, Albumin 2.6L, Albumin/Globulin Ratio 0.8L, Vitamin B12 Level 480, Folate > 24.0 03/03/21 18:15: Coronavirus (COVID-19)(PCR) NEGATIVE, Influenza Type A (RT-PCR) NEGATIVE, Influenza Type B (RT-PCR) NEGATIVE, Respiratory Syncytial Virus (PCR) NEGATIVE 03/04/21 08:47: Immature Granulocyte % (Auto) 1.2, Neutrophils (%) (Auto) 66.8H, Lymphocytes (%) (Auto) 15.6L, Monocytes (%) (Auto) 11.5H, Eosinophils (%) (Auto) 4.4H, Basophils (%) (Auto) 0.5, Neutrophils # (Auto) 5.6, Lymphocytes # (Auto) 1.3L, Monocytes # (Auto) 1.0H, Eosinophils # (Auto) 0.4, Basophils # (Auto) 0.0, Nucleated Red Blood Cells % (auto) 0.0, Anion Gap 6L, Glomerular Filtration Rate 36.6, Calcium Level 8.3L CBC/BMP Laboratory Tests 03/03/21 16:26 03/04/21 08:47 KASEY IRIZARRY MD Mar 04, 2021 13:01
== END 2021-03-04 13:17 ==
LOC: M ED 14:57 → EDBD 14:57 → M ED INP 14:58 → M MSPAV 22:26
PROVIDERS: ADMIT Internal Medicine Nephrology; ATTEND Internal Medicine Nephrology
DX: D64.9 Anemia, unspecified (principal); G47.33 Obstructive sleep apnea (adult) (pediatric); F33.41 Major depressive disorder, recurrent, in partial remission; R41.3 Other amnesia; E78.5 Hyperlipidemia, unspecified; I12.9 Hypertensive chronic kidney disease with stage 1 through stage 4 chronic kidney disease, or unspecified chronic kidney disease; N18.4 Chronic kidney disease, stage 4 (severe); F03.90 Unspecified dementia, unspecified severity, without behavioral disturbance, psychotic disturbance, mood disturbance, and anxiety; M10.9 Gout, unspecified; I48.0 Paroxysmal atrial fibrillation; E03.9 Hypothyroidism, unspecified; E11.9 Type 2 diabetes mellitus without complications; R26.89 Other abnormalities of gait and mobility; Z79.82 Long term (current) use of aspirin; Z79.01 Long term (current) use of anticoagulants; Z79.899 Other long term (current) drug therapy; Z88.8 Allergy status to other drugs, medicaments and biological substances; E55.9 Vitamin D deficiency, unspecified; Z87.891 Personal history of nicotine dependence; I50.30 Unspecified diastolic (congestive) heart failure
CPT/HCPCS: 36415; 36430; 71045; 73502; 80048; 80076; 82607; 82728; 82746; 83540; 83550; 83605; 85025; 85027; 85610; 85730; 86850; 86900; 86901; 86920; 87631; 93005; 96374; 99285; G0378; J1940; P9016

== ENCOUNTER → 2021-03-03 | Outpatient (REF) | payer MEDICARE ==
[~2021-03-03] MED LIST changes: +ENEMENE PR; +MILKSUS3 PO; +OMEP1CAP73 PO; +TRAM50TA2 PO
[2021-03-03 10:20] LABS: HEMOGLOBIN 7.7 g/dl (12.0-15.5); MEAN CORPUSCULAR HEMOGLOBIN 35.2 pg (27.0-33.0); MEAN CORPUSCULAR HGB CONC 32.1 g/dl (32.0-36.5); MEAN CORPUSCULAR VOLUME 109.6 fl (80.0-96.0); PLATELET COUNT, AUTOMATED 295 10^3/uL (150-450); RED BLOOD COUNT 2.19 10^6/uL (4.00-5.40); WHITE BLOOD COUNT 8.4 10^3/uL (4.0-10.0)
[2021-03-03 10:49] LABS: CALCIUM LEVEL 8.6 MG/DL (8.8-10.2); CREATININE FOR GFR 1.86 MG/DL (0.55-1.30); GLOMERULAR FILTRATION RATE 27.2 (>32); POTASSIUM SERUM 4.8 MEQ/L (3.5-5.1)
== END ==
PROVIDERS: ATTEND Family Medicine
DX: G47.10 Hypersomnia, unspecified (principal); F33.41 Major depressive disorder, recurrent, in partial remission; R41.3 Other amnesia; E78.5 Hyperlipidemia, unspecified; I12.9 Hypertensive chronic kidney disease with stage 1 through stage 4 chronic kidney disease, or unspecified chronic kidney disease; N18.32 Chronic kidney disease, stage 3b

== ENCOUNTER → 2021-03-04 | Outpatient (REF) | payer MEDICARE ==
[~2021-03-04] MED LIST changes: +ENEMENE PR; +MILKSUS3 PO; +OMEP1CAP73 PO; +TRAM50TA2 PO
== END ==
PROVIDERS: ATTEND Internal Medicine
DX: Z53.8 Procedure and treatment not carried out for other reasons (principal)

== ENCOUNTER → 2021-03-08 | Outpatient (REF) | payer MEDICARE ==
[2021-03-08 10:59] LABS: HEMATOCRIT 32.1 % (36.0-47.0); HEMOGLOBIN 10.2 g/dl (12.0-15.5); MEAN CORPUSCULAR HEMOGLOBIN 33.1 pg (27.0-33.0); MEAN CORPUSCULAR HGB CONC 31.8 g/dl (32.0-36.5); MEAN CORPUSCULAR VOLUME 104.2 fl (80.0-96.0); PLATELET COUNT, AUTOMATED 249 10^3/uL (150-450); RED BLOOD COUNT 3.08 10^6/uL (4.00-5.40); WHITE BLOOD COUNT 10.2 10^3/uL (4.0-10.0)
[2021-03-08 11:29] LABS: CALCIUM LEVEL 8.6 MG/DL (8.8-10.2); CREATININE FOR GFR 1.7 MG/DL (0.55-1.30); GLOMERULAR FILTRATION RATE 30.2 (>32); PERCENT SATURATION 25.7 % (13.2-45.0); POTASSIUM SERUM 4.4 MEQ/L (3.5-5.1)
== END ==
PROVIDERS: ATTEND Internal Medicine
DX: D64.9 Anemia, unspecified (principal)

== ENCOUNTER → 2021-03-09 | Outpatient (REF) | payer MEDICARE | PROVIDERS: ATTEND Internal Medicine | DX: D64.9 Anemia, unspecified (principal) ==

== ENCOUNTER → 2021-03-10 | Outpatient (REF) | payer MEDICARE ==
[~2021-03-10] MED LIST changes: -LEVO500T3 PO; +LEVO500T4 PO; +QUET1TAB17 PO; -QUET25TA3 PO; -TOBR0.3S; +TOBR0.3S10
[2021-03-10 12:55] LABS: HEMATOCRIT 34.8 % (36.0-47.0); HEMOGLOBIN 11.5 g/dl (12.0-15.5); MEAN CORPUSCULAR HEMOGLOBIN 33.9 pg (27.0-33.0); MEAN CORPUSCULAR VOLUME 102.7 fl (80.0-96.0); PLATELET COUNT, AUTOMATED 242 10^3/uL (150-450); RED BLOOD COUNT 3.39 10^6/uL (4.00-5.40); WHITE BLOOD COUNT 9.4 10^3/uL (4.0-10.0)
[2021-03-10 13:06] LABS: CALCIUM LEVEL 8.8 MG/DL (8.8-10.2); CREATININE FOR GFR 1.73 MG/DL (0.55-1.30); GLOMERULAR FILTRATION RATE 29.6 (>32); POTASSIUM SERUM 4.5 MEQ/L (3.5-5.1)
== END ==
PROVIDERS: ATTEND Internal Medicine
DX: D64.9 Anemia, unspecified (principal)

== ENCOUNTER → 2021-03-11 | Outpatient (REF) | payer MEDICARE ==
[~2021-03-11] MED LIST changes: +LEVO500T3 PO; -LEVO500T4 PO; -QUET1TAB17 PO; +QUET25TA3 PO; +TOBR0.3S; -TOBR0.3S10
== END ==
PROVIDERS: ATTEND Internal Medicine
DX: D64.9 Anemia, unspecified (principal)

== ENCOUNTER → 2021-03-11 | Outpatient (CLI) | payer MEDICARE ==
--- NOTE | 2021-03-11 08:58 | REP ---
INDICATION: PAIN LEFT SHOULDER. COMPARISON: Comparison radiographs of the left shoulder from February 23, 2021.. TECHNIQUE: Two views of the left shoulder. FINDINGS: An impacted fracture of the surgical neck of the left humerus is again seen. There is very little projectional difference between the 2 AP views presented consistent with immobility of the joint. The degree of impaction appears increased. The acromioclavicular joint is normally aligned. No glenohumeral dislocation is seen. There is diffuse osteopenia. IMPRESSION: Impacted fracture surgical neck left humerus. The degree of impaction appears to have increased. <Electronically signed by Titi Gibson > 03/11/21 [id number]
== END ==
LOC: M SOG 08:23
PROVIDERS: ATTEND Orthopaedic Surgery Adult Reconstructive Orthopaedic Surgery
DX: M25.512 Pain in left shoulder (principal); S42.212A Unspecified displaced fracture of surgical neck of left humerus, initial encounter for closed fracture; X58.XXXA Exposure to other specified factors, initial encounter; Y92.9 Unspecified place or not applicable; D64.9 Anemia, unspecified

== ENCOUNTER → 2021-03-15 | Outpatient (REF) | payer MEDICARE ==
[~2021-03-15] MED LIST changes: -LEVO500T3 PO; +LEVO500T4 PO; +QUET1TAB17 PO; -QUET25TA3 PO; -TOBR0.3S; +TOBR0.3S10
[2021-03-15 11:23] LABS: HEMATOCRIT 33.2 % (36.0-47.0); HEMOGLOBIN 10.7 g/dl (12.0-15.5); MEAN CORPUSCULAR HEMOGLOBIN 33.6 pg (27.0-33.0); MEAN CORPUSCULAR HGB CONC 32.2 g/dl (32.0-36.5); MEAN CORPUSCULAR VOLUME 104.4 fl (80.0-96.0); PLATELET COUNT, AUTOMATED 210 10^3/uL (150-450); RED BLOOD COUNT 3.18 10^6/uL (4.00-5.40); WHITE BLOOD COUNT 8.4 10^3/uL (4.0-10.0)
[2021-03-15 11:43] LABS: CREATININE FOR GFR 1.64 MG/DL (0.55-1.30); GLOMERULAR FILTRATION RATE 31.5 (>32); POTASSIUM SERUM 4.3 MEQ/L (3.5-5.1)
== END ==
PROVIDERS: ATTEND Family Medicine
DX: D64.9 Anemia, unspecified (principal)

== ENCOUNTER → 2021-03-16 | Outpatient (REF) | payer MEDICARE ==
[~2021-03-16] MED LIST changes: +LEVO500T3 PO; -LEVO500T4 PO; -QUET1TAB17 PO; +QUET25TA3 PO; +TOBR0.3S; -TOBR0.3S10
== END ==
PROVIDERS: ATTEND Internal Medicine
DX: D64.9 Anemia, unspecified (principal)

== ENCOUNTER → 2021-03-17 | Outpatient (REF) | payer MEDICARE ==
[~2021-03-17] MED LIST changes: -LEVO500T3 PO; +LEVO500T4 PO; +QUET1TAB17 PO; -QUET25TA3 PO; -TOBR0.3S; +TOBR0.3S10
[2021-03-17 10:54] LABS: HEMATOCRIT 35.1 % (36.0-47.0); HEMOGLOBIN 11.3 g/dl (12.0-15.5); MEAN CORPUSCULAR HEMOGLOBIN 33.6 pg (27.0-33.0); MEAN CORPUSCULAR HGB CONC 32.2 g/dl (32.0-36.5); MEAN CORPUSCULAR VOLUME 104.5 fl (80.0-96.0); PLATELET COUNT, AUTOMATED 235 10^3/uL (150-450); RED BLOOD COUNT 3.36 10^6/uL (4.00-5.40); WHITE BLOOD COUNT 7.1 10^3/uL (4.0-10.0)
[2021-03-17 11:20] LABS: CALCIUM LEVEL 8.8 MG/DL (8.8-10.2); CREATININE FOR GFR 1.62 MG/DL (0.55-1.30); GLOMERULAR FILTRATION RATE 31.9 (>32); POTASSIUM SERUM 4.1 MEQ/L (3.5-5.1)
== END ==
PROVIDERS: ATTEND Internal Medicine
DX: D64.9 Anemia, unspecified (principal)

== ENCOUNTER → 2021-03-29 | Outpatient (REF) | payer MEDICARE ==
[2021-03-29 12:36] LABS: HEMATOCRIT 34.8 % (36.0-47.0); HEMOGLOBIN 10.9 g/dl (12.0-15.5); MEAN CORPUSCULAR HEMOGLOBIN 33.3 pg (27.0-33.0); MEAN CORPUSCULAR HGB CONC 31.3 g/dl (32.0-36.5); MEAN CORPUSCULAR VOLUME 106.4 fl (80.0-96.0); PLATELET COUNT, AUTOMATED 214 10^3/uL (150-450); RED BLOOD COUNT 3.27 10^6/uL (4.00-5.40); WHITE BLOOD COUNT 7.6 10^3/uL (4.0-10.0)
[2021-03-29 13:00] LABS: CALCIUM LEVEL 9.2 MG/DL (8.8-10.2); CREATININE FOR GFR 1.71 MG/DL (0.55-1.30); POTASSIUM SERUM 4.4 MEQ/L (3.5-5.1)
== END ==
PROVIDERS: ATTEND Family Medicine
DX: D64.9 Anemia, unspecified (principal)

== ENCOUNTER → 2021-04-23 | Outpatient (CLI) | payer MEDICARE ==
[~2021-04-23] MED LIST changes: +LEVO500T3 PO; -LEVO500T4 PO; +TOBR0.3S; -TOBR0.3S10
--- NOTE | 2021-04-23 12:13 | REP ---
INDICATION: LT HUMERUS FX FOLLOW-UP. COMPARISON: Comparison left shoulder radiographs March 11, 2021. TECHNIQUE: Four views of the left shoulder are provided. FINDINGS: Today's views of the left shoulder again demonstrate an impacted fracture of the surgical neck of the left humerus. It is unchanged in position. 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 There is diffuse osteopenia. IMPRESSION: Healing impacted surgical neck fracture left proximal humerus. <Electronically signed by Titi Gibson > 04/23/21 [id number]
== END ==
LOC: M SOG 09:03
PROVIDERS: ATTEND Orthopaedic Surgery Adult Reconstructive Orthopaedic Surgery
DX: S42.215D Unspecified nondisplaced fracture of surgical neck of left humerus, subsequent encounter for fracture with routine healing (principal); X58.XXXD Exposure to other specified factors, subsequent encounter; Y92.9 Unspecified place or not applicable; Y93.9 Activity, unspecified; Y99.9 Unspecified external cause status

== ENCOUNTER → 2021-05-26 | Outpatient (REF) | payer MEDICARE ==
[2021-05-26 11:14] LABS: BASO % 0.2 % (0.0-1.0); EOS # 0.1 10^3/uL (0.0-0.5); EOS % 1.1 % (0.0-3.0); HEMATOCRIT 32.7 % (36.0-47.0); HEMOGLOBIN 10.6 g/dl (12.0-15.5); LYMPH # 1.4 10^3/uL (1.5-5.0); LYMPH % 14.9 % (24.0-44.0); MEAN CORPUSCULAR HEMOGLOBIN 33.5 pg (27.0-33.0); MEAN CORPUSCULAR HGB CONC 32.4 g/dl (32.0-36.5); MEAN CORPUSCULAR VOLUME 103.5 fl (80.0-96.0); MONO # 0.7 10^3/uL (0.0-0.8); MONO % 7.7 % (2.0-8.0); NEUTROPHILS # 7.1 10^3/uL (1.5-8.5); NEUTROPHILS % 75.7 % (36.0-66.0); PLATELET COUNT, AUTOMATED 149 10^3/uL (150-450); RED BLOOD COUNT 3.16 10^6/uL (4.00-5.40); WHITE BLOOD COUNT 9.4 10^3/uL (4.0-10.0)
[2021-05-26 13:19] LABS: ALBUMIN 2.8 GM/DL (3.2-5.2); CALCIUM LEVEL 8.6 MG/DL (8.8-10.2); CREATININE FOR GFR 1.69 MG/DL (0.55-1.30); GLOMERULAR FILTRATION RATE 30.4 (>32); PHOSPHORUS LEVEL 3.1 MG/DL (2.5-4.9); POTASSIUM SERUM 4.6 MEQ/L (3.5-5.1)
== END ==
PROVIDERS: ATTEND Family Medicine
DX: N18.9 Chronic kidney disease, unspecified (principal)

== ENCOUNTER → 2021-06-06 | Outpatient (REF) | payer MEDICARE | PROVIDERS: ATTEND Nurse Practitioner Adult Health | DX: Z20.822 Contact with and (suspected) exposure to COVID-19 (principal) ==

== ENCOUNTER → 2021-06-16 | Outpatient (REF) | payer MEDICARE ==
[2021-06-16 17:53] LABS: HEMATOCRIT 33.5 % (36.0-47.0); HEMOGLOBIN 10.7 g/dl (12.0-15.5); MEAN CORPUSCULAR HEMOGLOBIN 33.4 pg (27.0-33.0); MEAN CORPUSCULAR HGB CONC 31.9 g/dl (32.0-36.5); MEAN CORPUSCULAR VOLUME 104.7 fl (80.0-96.0); PLATELET COUNT, AUTOMATED 123 10^3/uL (150-450); WHITE BLOOD COUNT 8.3 10^3/uL (4.0-10.0)
[2021-06-16 18:29] LABS: CALCIUM LEVEL 8.6 MG/DL (8.8-10.2); CREATININE FOR GFR 2.02 MG/DL (0.55-1.30); GLOMERULAR FILTRATION RATE 24.7 (>32); THYROID STIMULATING HORMONE 1.63 uIU/ML (0.358-3.740)
== END ==
PROVIDERS: ATTEND Physician Assistant
DX: R41.82 Altered mental status, unspecified (principal)

== ENCOUNTER → 2021-06-21 | Outpatient (REF) | payer MEDICARE ==
[2021-06-21 12:16] LABS: CALCIUM LEVEL 9.3 MG/DL (8.8-10.2); CREATININE FOR GFR 1.54 MG/DL (0.55-1.30); GLOMERULAR FILTRATION RATE 33.8 (>32); POTASSIUM SERUM 4.8 MEQ/L (3.5-5.1)
== END ==
PROVIDERS: ATTEND Internal Medicine
DX: D64.9 Anemia, unspecified (principal)

== ENCOUNTER → 2021-06-24 | Outpatient (CLI) | payer MEDICARE ==
--- NOTE | 2021-06-24 12:14 | REP ---
INDICATION: LT SHOULDER FX. COMPARISON: On 04/23/2021 TECHNIQUE: The examination is markedly limited. The technologist has placed in the [employer] power jacket that the images obtained were the best obtainable due to the patient's condition. FINDINGS: Proximal humeral fracture appears unchanged. There is significant artifact identified. IMPRESSION: As above <Electronically signed by Jermaine Qiu > 06/24/21 [id number]
== END ==
LOC: M SOG 08:03
PROVIDERS: ATTEND Orthopaedic Surgery Adult Reconstructive Orthopaedic Surgery
DX: S42.202D Unspecified fracture of upper end of left humerus, subsequent encounter for fracture with routine healing (principal); X58.XXXD Exposure to other specified factors, subsequent encounter; Y92.9 Unspecified place or not applicable; Y99.9 Unspecified external cause status; Y93.9 Activity, unspecified

== ENCOUNTER → 2021-06-28 | Outpatient (REF) | payer MEDICARE, MEDICAID ==
[~2021-06-28] MED LIST changes: -LEVO500T3 PO; +LEVO500T4 PO
[2021-06-28 11:41] LABS: CALCIUM LEVEL 9.2 MG/DL (8.8-10.2); CREATININE FOR GFR 1.52 MG/DL (0.55-1.30); GLOMERULAR FILTRATION RATE 34.4 (>32); POTASSIUM SERUM 4.9 MEQ/L (3.5-5.1)
== END ==
PROVIDERS: ATTEND Internal Medicine
DX: N18.9 Chronic kidney disease, unspecified (principal)

== ENCOUNTER → 2021-07-05 | Outpatient (REF) | payer MEDICARE ==
[~2021-07-05] MED LIST changes: +LEVO500T3 PO; -LEVO500T4 PO
== END ==
PROVIDERS: ATTEND Internal Medicine
DX: Z53.9 Procedure and treatment not carried out, unspecified reason (principal)

== ENCOUNTER → 2021-08-02 | Outpatient (REF) | payer MEDICARE, MEDICAID ==
[~2021-08-02] MED LIST changes: -LEVO500T3 PO; +LEVO500T4 PO; -TOBR0.3S; +TOBR0.3S10
[2021-08-02 11:15] LABS: CALCIUM LEVEL 9.1 MG/DL (8.8-10.2)
[2021-08-02 11:33] LABS: TOTAL 25(OH) VITAMIN D 20.6 NG/ML (30.0-100.0)
== END ==
PROVIDERS: ATTEND Nurse Practitioner Primary Care
DX: N18.9 Chronic kidney disease, unspecified (principal); Z79.899 Other long term (current) drug therapy

== ENCOUNTER → 2021-08-24 | Outpatient (CLI) | payer MEDICARE, MEDICAID ==
[~2021-08-24] MED LIST changes: +LEVO500T3 PO; -LEVO500T4 PO; +TOBR0.3S; -TOBR0.3S10
--- NOTE | 2021-08-24 16:03 | REP ---
INDICATION: LT HUMERUS FX. COMPARISON: 06/24/2021 TECHNIQUE: Two views FINDINGS: The previously described proximal humeral fracture is again seen to be healing. It is unchanged. There is no acute fracture, dislocation, or subluxation. Chronic changes are again seen involving the glenohumeral and acromioclavicular joints status quo. IMPRESSION: As above. <Electronically signed by Jermaine Qiu > 08/24/21 1600
== END ==
LOC: M SOG 09:28
PROVIDERS: ATTEND Orthopaedic Surgery Adult Reconstructive Orthopaedic Surgery
DX: M25.512 Pain in left shoulder (principal); S42.202D Unspecified fracture of upper end of left humerus, subsequent encounter for fracture with routine healing; X58.XXXD Exposure to other specified factors, subsequent encounter; Y92.9 Unspecified place or not applicable; Y93.9 Activity, unspecified; Y99.9 Unspecified external cause status

== ENCOUNTER → 2021-08-25 | Outpatient (REF) | payer MEDICARE, MEDICAID ==
[~2021-08-25] MED LIST changes: -LEVO500T3 PO; +LEVO500T4 PO
[2021-08-25 11:51] LABS: BASO % 0.2 % (0.0-1.0); EOS # 0.4 10^3/uL (0.0-0.5); EOS % 5.2 % (0.0-3.0); HEMATOCRIT 36.4 % (36.0-47.0); HEMOGLOBIN 11.3 g/dl (12.0-15.5); LYMPH # 2.6 10^3/uL (1.5-5.0); LYMPH % 30.5 % (24.0-44.0); MEAN CORPUSCULAR HEMOGLOBIN 32.8 pg (27.0-33.0); MEAN CORPUSCULAR VOLUME 105.5 fl (80.0-96.0); MONO # 0.8 10^3/uL (0.0-0.8); MONO % 8.9 % (2.0-8.0); NEUTROPHILS # 4.6 10^3/uL (1.5-8.5); NEUTROPHILS % 54.8 % (36.0-66.0); PLATELET COUNT, AUTOMATED 180 10^3/uL (150-450); RED BLOOD COUNT 3.45 10^6/uL (4.00-5.40); WHITE BLOOD COUNT 8.4 10^3/uL (4.0-10.0)
[2021-08-25 12:25] LABS: ALBUMIN 3.1 GM/DL (3.2-5.2); CALCIUM LEVEL 9.1 MG/DL (8.8-10.2); CREATININE FOR GFR 1.88 MG/DL (0.55-1.30); GLOMERULAR FILTRATION RATE 26.9 (>32); PHOSPHORUS LEVEL 3.6 MG/DL (2.5-4.9); POTASSIUM SERUM 4.9 MEQ/L (3.5-5.1); PTH INTACT 99.2 PG/ML (18.5-88.0); URIC ACID 5.9 MG/DL (2.6-6.0)
== END ==
PROVIDERS: ATTEND Internal Medicine
DX: N18.9 Chronic kidney disease, unspecified (principal)

== ENCOUNTER → 2021-09-08 | Outpatient (REF) | payer MEDICARE, MEDICAID ==
[2021-09-08 10:44] LABS: APPEARANCE, URINE CLOUDY (CLEAR); BACTERIA, URINE AUTO 2+ (NEGATIVE); BILIRUBIN, URINE AUTO NEGATIVE (NEGATIVE); BLOOD, URINE BLOOD NEGATIVE (NEGATIVE); COLOR, URINE YELLOW (YELLOW); GLUCOSE, URINE (UA) AUTO NEGATIVE (NEGATIVE); KETONE, URINE AUTO NEGATIVE (NEGATIVE); LEUKOCYTE ESTERASE, URINE AUTO 3+ (NEGATIVE); MUCUS, URINE SMALL (NEGATIVE); NITRITE, URINE AUTO POSITIVE (NEGATIVE); PROTEIN, URINE AUTO NEGATIVE (NEGATIVE); RBC, URINE AUTO 1 /HPF (0-3); SPECIFIC GRAVITY URINE AUTO 1.014 (1.002-1.035); SQUAMOUS EPITHELIAL CELL UR AU 2 /HPF (0-6); TRANSITIONAL EPITHELIAL AUTO <1 /HPF; UROBILINOGEN, URINE AUTO 0.2 mg/dL (0.0-2.0); WBC, URINE AUTO TNTC /HPF (0-3)
[2021-09-08 10:53] LABS: BASO % 0.3 % (0.0-1.0); EOS # 0.5 10^3/uL (0.0-0.5); EOS % 4.9 % (0.0-3.0); HEMATOCRIT 38.1 % (36.0-47.0); LYMPH # 2.4 10^3/uL (1.5-5.0); LYMPH % 24.6 % (24.0-44.0); MEAN CORPUSCULAR HEMOGLOBIN 33.1 pg (27.0-33.0); MEAN CORPUSCULAR HGB CONC 31.5 g/dl (32.0-36.5); MEAN CORPUSCULAR VOLUME 105.2 fl (80.0-96.0); MONO # 0.8 10^3/uL (0.0-0.8); MONO % 7.9 % (2.0-8.0); NEUTROPHILS # 6.1 10^3/uL (1.5-8.5); NEUTROPHILS % 61.9 % (36.0-66.0); PLATELET COUNT, AUTOMATED 155 10^3/uL (150-450); RED BLOOD COUNT 3.62 10^6/uL (4.00-5.40); WHITE BLOOD COUNT 9.8 10^3/uL (4.0-10.0)
[2021-09-08 13:57] LABS: CALCIUM LEVEL 9.2 MG/DL (8.8-10.2); CREATININE FOR GFR 1.55 MG/DL (0.55-1.30); GLOMERULAR FILTRATION RATE 33.6 (>32); POTASSIUM SERUM 4.8 MEQ/L (3.5-5.1); THYROID STIMULATING HORMONE 1.8 uIU/ML (0.358-3.740)
== END ==
PROVIDERS: ATTEND Internal Medicine
DX: I50.9 Heart failure, unspecified (principal); Z79.899 Other long term (current) drug therapy

== ENCOUNTER → 2021-09-13 | Outpatient (REF) | payer MEDICARE, MEDICAID ==
[2021-09-13 10:27] LABS: HEMATOCRIT 35.7 % (36.0-47.0); HEMOGLOBIN 11.5 g/dl (12.0-15.5); MEAN CORPUSCULAR HEMOGLOBIN 33.5 pg (27.0-33.0); MEAN CORPUSCULAR HGB CONC 32.2 g/dl (32.0-36.5); MEAN CORPUSCULAR VOLUME 104.1 fl (80.0-96.0); PLATELET COUNT, AUTOMATED 140 10^3/uL (150-450); RED BLOOD COUNT 3.43 10^6/uL (4.00-5.40); WHITE BLOOD COUNT 8.6 10^3/uL (4.0-10.0)
[2021-09-13 11:22] LABS: CALCIUM LEVEL 8.9 MG/DL (8.8-10.2); CREATININE FOR GFR 1.99 MG/DL (0.55-1.30); GLOMERULAR FILTRATION RATE 25.2 (>32); POTASSIUM SERUM 4.3 MEQ/L (3.5-5.1)
== END ==
PROVIDERS: ATTEND Nurse Practitioner Primary Care
DX: N39.0 Urinary tract infection, site not specified (principal)

== ENCOUNTER → 2021-09-22 | Outpatient (REF) | payer MEDICARE, MEDICAID ==
[~2021-09-22] MED LIST changes: -TOBR0.3S; +TOBR0.3S10
[2021-09-22 13:09] LABS: HEMOGLOBIN 10.5 g/dl (12.0-15.5); MEAN CORPUSCULAR HEMOGLOBIN 33.4 pg (27.0-33.0); MEAN CORPUSCULAR HGB CONC 31.8 g/dl (32.0-36.5); MEAN CORPUSCULAR VOLUME 105.1 fl (80.0-96.0); PLATELET COUNT, AUTOMATED 139 10^3/uL (150-450); RED BLOOD COUNT 3.14 10^6/uL (4.00-5.40); WHITE BLOOD COUNT 7.4 10^3/uL (4.0-10.0)
[2021-09-22 14:17] LABS: CALCIUM LEVEL 8.8 MG/DL (8.8-10.2); CREATININE FOR GFR 2.04 MG/DL (0.55-1.30); GLOMERULAR FILTRATION RATE 24.5 (>32); POTASSIUM SERUM 4.8 MEQ/L (3.5-5.1)
== END ==
PROVIDERS: ATTEND Internal Medicine
DX: N18.9 Chronic kidney disease, unspecified (principal); E55.9 Vitamin D deficiency, unspecified

== ENCOUNTER → 2021-09-27 | Outpatient (REF) | payer MEDICARE, MEDICAID ==
[2021-09-27 10:52] LABS: HEMATOCRIT 34.4 % (36.0-47.0); HEMOGLOBIN 11.1 g/dl (12.0-15.5); MEAN CORPUSCULAR HEMOGLOBIN 34.2 pg (27.0-33.0); MEAN CORPUSCULAR HGB CONC 32.3 g/dl (32.0-36.5); MEAN CORPUSCULAR VOLUME 105.8 fl (80.0-96.0); PLATELET COUNT, AUTOMATED 167 10^3/uL (150-450); RED BLOOD COUNT 3.25 10^6/uL (4.00-5.40); WHITE BLOOD COUNT 8.9 10^3/uL (4.0-10.0)
[2021-09-27 11:30] LABS: CALCIUM LEVEL 9.1 MG/DL (8.8-10.2); CREATININE FOR GFR 1.68 MG/DL (0.55-1.30); GLOMERULAR FILTRATION RATE 30.6 (>32); POTASSIUM SERUM 4.8 MEQ/L (3.5-5.1)
[2021-09-27 15:45] LABS: TOTAL 25(OH) VITAMIN D 33.4 NG/ML (30.0-100.0)
== END ==
PROVIDERS: ATTEND Nurse Practitioner Primary Care
DX: N18.9 Chronic kidney disease, unspecified (principal); I50.9 Heart failure, unspecified; Z79.899 Other long term (current) drug therapy